=== PATIENT | male | born 1950 | race Caucasian/White ===

== ENCOUNTER 2020-07-06 12:40 | Outpatient (REF) | payer MEDICARE, BC, SELFPAY ==
--- NOTE | 2020-07-06 12:51 | XR_ITS ---
EXAMINATION: XR ABDOMEN KUB CLINICAL INDICATION: Renal stone COMPARISON: Previous CT of the abdomen and pelvis September 2019 and renal ultrasound March 2020 TECHNIQUE: AP view of the abdomen. FINDINGS: No renal stone is seen. There are bilateral pelvic calcifications probably representing calcified phleboliths and calcification in the prostate gland. Bowel gas pattern is normal. There are degenerative changes of the spine and left hip joint. IMPRESSION: No renal stone seen. Bilateral pelvic calcifications probably representing calcified phleboliths and calcification in the prostate gland.
== END 2020-07-06 12:41 | disposition home or self-care (01) ==
LOC: HO.XRAY 12:40
PROVIDERS: PCP Internal Medicine; Visit Provider Urology
DX: N20.0 Calculus of kidney (principal)
CPT/HCPCS: 74018

== ENCOUNTER 2021-01-25 10:54 | Outpatient (REF) | payer MEDICARE, OTHER, BC, SELFPAY ==
[2021-01-25 12:01] LABS: Alanine Aminotransferase 25 U/L (0-40); Albumin Level 4.7 g/dL (3.5-5.0); Alkaline Phosphatase 57 U/L (39-117); Anion Gap 12 (12-20); Aspartate Amino Transferase 17 U/L (5-37); Bilirubin Total 1.3 mg/dL (0.0-1.0); Blood Urea Nitrogen 12 mg/dL (9-16); Carbon Dioxide 28 mmol/L (22-29); Chloride 106 mmol/L (96-108); Cholesterol 151 mg/dL; Estimated Glomerular Filt Rate > 60; Glucose Fasting 114 mg/dL (60-99); HDL Cholesterol 41 mg/dL; LDL Cholesterol Calculated 90 mg/dl; Potassium 4.5 mmol/L (3.3-5.1); Sodium 141 mmol/L (135-145); Total Protein 7.3 g/dL (6.5-8.0); Triglycerides 104 mg/dL
[2021-01-25 12:11] LABS: TSH reflex Free T4 4.25 uIU/mL (0.32-4.0)
[2021-01-25 12:45] LABS: Free T4 (Free Thyroxine) 1.03 ng/dL (0.71-1.85)
[2021-01-26 08:51] LABS: Thyroid Peroxidase Antibodies 3 IU/mL (<9)
[2021-01-29 16:01] LABS: Thyroid Stimulating Immunoglob <89 % baseline (<140)
== END 2021-01-25 10:55 | disposition home or self-care (01) ==
LOC: HO.LAB 10:54
PROVIDERS: PCP Internal Medicine; Visit Provider Internal Medicine
DX: E78.00 Pure hypercholesterolemia, unspecified (principal); E03.9 Hypothyroidism, unspecified
CPT/HCPCS: 36415; 80053; 80061; 84439; 84443; 84445; 86376

== ENCOUNTER 2021-04-12 08:23 | Outpatient (REF) | payer MEDICARE, OTHER, BC, SELFPAY ==
[2021-04-12 09:37] LABS: Alanine Aminotransferase 29 U/L (0-40); Albumin Level 4.6 g/dL (3.5-5.0); Alkaline Phosphatase 54 U/L (39-117); Anion Gap 11 (12-20); Aspartate Amino Transferase 22 U/L (5-37); Bilirubin Total 1.1 mg/dL (0.0-1.0); Blood Urea Nitrogen 13 mg/dL (9-16); Calcium 9.9 mg/dL (8.4-10.2); Carbon Dioxide 28 mmol/L (22-29); Chloride 107 mmol/L (96-108); Estimated Glomerular Filt Rate > 60; Glucose Fasting 126 mg/dL (60-99); Potassium 4.7 mmol/L (3.3-5.1); Sodium 141 mmol/L (135-145); Total Protein 7.2 g/dL (6.5-8.0)
[2021-04-12 09:48] LABS: Thyroid Stimulating Hormone 4.85 uIU/mL (0.32-4.0)
== END 2021-04-12 08:24 | disposition home or self-care (01) ==
LOC: HO.LAB 08:23
PROVIDERS: PCP Internal Medicine; Visit Provider Internal Medicine
DX: E03.9 Hypothyroidism, unspecified (principal); R73.02 Impaired glucose tolerance (oral)
CPT/HCPCS: 36415; 80053; 84443

== ENCOUNTER 2021-06-16 08:06 | Outpatient (REF) | payer MEDICARE, OTHER, BC, SELFPAY ==
[2021-06-16 09:14] LABS: Alanine Aminotransferase 30 U/L (0-40); Albumin Level 4.6 g/dL (3.5-5.0); Alkaline Phosphatase 60 U/L (39-117); Anion Gap 11 (12-20); Aspartate Amino Transferase 22 U/L (5-37); Bilirubin Total 1.4 mg/dL (0.0-1.0); Blood Urea Nitrogen 11 mg/dL (9-16); Calcium 10.1 mg/dL (8.4-10.2); Carbon Dioxide 25 mmol/L (22-29); Chloride 108 mmol/L (96-108); Estimated Glomerular Filt Rate > 60; Glucose Fasting 124 mg/dL (60-99); Potassium 4.3 mmol/L (3.3-5.1); Sodium 140 mmol/L (135-145); Total Protein 7.3 g/dL (6.5-8.0)
[2021-06-16 09:37] LABS: Thyroid Stimulating Hormone 2.56 uIU/mL (0.32-4.0)
== END 2021-06-16 08:07 | disposition home or self-care (01) ==
LOC: HO.LAB 08:06
PROVIDERS: Visit Provider Internal Medicine
DX: R73.02 Impaired glucose tolerance (oral) (principal); E03.9 Hypothyroidism, unspecified
CPT/HCPCS: 36415; 80053; 84443

== ENCOUNTER 2021-12-25 07:57 | Outpatient (REF) | payer MEDICARE, BC, SELFPAY ==
[2021-12-25 10:00] LABS: Thyroid Stimulating Hormone 3.22 uIU/mL (0.32-4.0)
[2021-12-25 10:26] LABS: Alanine Aminotransferase 25 U/L (0-40); Albumin Level 4.6 g/dL (3.5-5.0); Alkaline Phosphatase 52 U/L (39-117); Anion Gap 14 (12-20); Aspartate Amino Transferase 20 U/L (5-37); Bilirubin Total 0.9 mg/dL (0.0-1.0); Blood Urea Nitrogen 17 mg/dL (9-16); Calcium 10.6 mg/dL (8.4-10.2); Carbon Dioxide 23 mmol/L (22-29); Chloride 107 mmol/L (96-108); Cholesterol 137 mg/dL; Estimated Glomerular Filt Rate > 60; Glucose Fasting 121 mg/dL (60-99); HDL Cholesterol 34 mg/dL; LDL Cholesterol Calculated 78 mg/dl; Potassium 4.4 mmol/L (3.3-5.1); Sodium 140 mmol/L (135-145); Total Protein 7.4 g/dL (6.5-8.0); Triglycerides 125 mg/dL
== END 2021-12-25 07:58 | disposition home or self-care (01) ==
LOC: HO.LAB 07:57
PROVIDERS: PCP Internal Medicine; Visit Provider Internal Medicine
DX: E03.9 Hypothyroidism, unspecified (principal); E78.5 Hyperlipidemia, unspecified; R73.02 Impaired glucose tolerance (oral)
CPT/HCPCS: 36415; 80053; 80061; 84443

== ENCOUNTER 2021-12-31 10:09 | Outpatient (REF) | payer MEDICARE, BC, SELFPAY ==
--- NOTE | ~2021-12-31 | US_ITS ---
EXAMINATION: US FOR PROSTATE VOLUME CLINICAL INFORMATION: BPH. COMPARISON: CT scan of September 2019. TECHNIQUE: Endorectal prostate ultrasound. FINDINGS: Prostate volume is approximately 46 cm. Prominent calcifications are noted within the prostate gland. There is a 1.2 x 0.8 x 1.2 cm cyst present within the mid gland. US/US prostate volume IMPRESSION: Prostate volume of 46 cm.
== END 2021-12-31 10:10 | disposition home or self-care (01) ==
LOC: HO.US 10:09
PROVIDERS: Visit Provider Internal Medicine
DX: N40.0 Benign prostatic hyperplasia without lower urinary tract symptoms (principal)
CPT/HCPCS: 76872

== ENCOUNTER 2022-01-01 07:13 | Outpatient (REF) | payer MEDICARE, BC, SELFPAY ==
[2022-01-01 08:14] LABS: Alanine Aminotransferase 25 U/L (0-40); Albumin Level 4.6 g/dL (3.5-5.0); Alkaline Phosphatase 52 U/L (39-117); Anion Gap 13 (12-20); Aspartate Amino Transferase 20 U/L (5-37); Blood Urea Nitrogen 15 mg/dL (9-16); Calcium 10.5 mg/dL (8.4-10.2); Carbon Dioxide 26 mmol/L (22-29); Chloride 107 mmol/L (96-108); Cholesterol 140 mg/dL; Estimated Glomerular Filt Rate > 60; Glucose Fasting 128 mg/dL (60-99); HDL Cholesterol 36 mg/dL; LDL Cholesterol Calculated 83 mg/dl; Potassium 4.5 mmol/L (3.3-5.1); Sodium 141 mmol/L (135-145); Total Protein 7.4 g/dL (6.5-8.0); Triglycerides 107 mg/dL
[2022-01-01 08:42] LABS: Thyroid Stimulating Hormone 2.78 uIU/mL (0.32-4.0)
[2022-01-01 08:43] LABS: Prostate Specific Antigen 0.72 ng/mL (<0.05-4.0)
[2022-01-01 10:13] LABS: Vitamin D 25-OH Total 37.6 ng/mL (>30)
[2022-01-03 13:56] LABS: Calcium (PTHI) 10.6 mg/dL (8.6-10.3); PTHI 55 pg/mL (16-77)
[2022-01-04 15:51] LABS: Calcium, Ionized 5.7 mg/dL (4.8-5.6)
[2022-01-04 22:17] LABS: Calcium, Random Urine 22.7 mg/dL
== END 2022-01-01 07:14 | disposition home or self-care (01) ==
LOC: HO.LAB 07:13
PROVIDERS: Absent Provider Internal Medicine; PCP Internal Medicine; Visit Provider Nurse Practitioner Family
DX: Z12.5 Encounter for screening for malignant neoplasm of prostate (principal); R73.02 Impaired glucose tolerance (oral); E03.9 Hypothyroidism, unspecified; E78.5 Hyperlipidemia, unspecified; E83.52 Hypercalcemia
CPT/HCPCS: 36415; 80053; 80061; 82306; 82310; 82330; 83970; 84153; 84443

== ENCOUNTER 2022-02-28 09:30 | Outpatient (REF) | payer MEDICARE, BC, SELFPAY ==
[2022-02-28 11:02] LABS: Alanine Aminotransferase 25 U/L (0-40); Albumin Level 4.5 g/dL (3.5-5.0); Alkaline Phosphatase 50 U/L (39-117); Anion Gap 10 (12-20); Aspartate Amino Transferase 19 U/L (5-37); Bilirubin Total 1.3 mg/dL (0.0-1.0); Blood Urea Nitrogen 11 mg/dL (9-16); Calcium 9.7 mg/dL (8.4-10.2); Carbon Dioxide 27 mmol/L (22-29); Chloride 106 mmol/L (96-108); Cholesterol 162 mg/dL; Estimated Glomerular Filt Rate > 60; Glucose Fasting 119 mg/dL (60-99); HDL Cholesterol 39 mg/dL; LDL Cholesterol Calculated 102 mg/dl; Potassium 4.6 mmol/L (3.3-5.1); Sodium 138 mmol/L (135-145); Total Protein 7.1 g/dL (6.5-8.0); Triglycerides 105 mg/dL
[2022-02-28 11:28] LABS: Thyroid Stimulating Hormone 3.08 uIU/mL (0.32-4.0)
== END 2022-02-28 09:31 | disposition home or self-care (01) ==
LOC: HO.LAB 09:30
PROVIDERS: PCP Internal Medicine; Visit Provider Internal Medicine
DX: E78.00 Pure hypercholesterolemia, unspecified (principal); E78.5 Hyperlipidemia, unspecified; E03.9 Hypothyroidism, unspecified
CPT/HCPCS: 36415; 80053; 80061; 84443

== ENCOUNTER → 2022-03-18 12:43 | Outpatient (BNVA) | payer MEDICARE, BC, SELFPAY | PROVIDERS: PCP Internal Medicine; Visit Provider Internal Medicine Endocrinology, Diabetes & Metabolism | DX: E83.52 Hypercalcemia (principal) | CPT/HCPCS: 99202 ==

== ENCOUNTER 2022-08-29 06:15 | Outpatient (REF) | payer MEDICARE, BC, SELFPAY ==
[2022-08-29 08:36] LABS: Alanine Aminotransferase 32 U/L (0-40); Albumin Level 4.5 g/dL (3.5-5.0); Alkaline Phosphatase 57 U/L (39-117); Anion Gap 13 (12-20); Aspartate Amino Transferase 19 U/L (5-37); Bilirubin Total 0.9 mg/dL (0.0-1.0); Blood Urea Nitrogen 16 mg/dL (9-16); Carbon Dioxide 25 mmol/L (22-29); Chloride 105 mmol/L (96-108); Cholesterol 150 mg/dL; Estimated Glomerular Filt Rate > 60; Glucose Fasting 138 mg/dL (60-99); HDL Cholesterol 34 mg/dL; LDL Cholesterol Calculated 94 mg/dl; Potassium 4.4 mmol/L (3.3-5.1); Sodium 139 mmol/L (135-145); Thyroid Stimulating Hormone 4.58 uIU/mL (0.32-4.0); Total Protein 7.1 g/dL (6.5-8.0); Triglycerides 111 mg/dL
[2022-08-30 15:13] LABS: Calcium (PTHI) 9.9 mg/dL (8.6-10.3); PTHI 54 pg/mL (16-77)
== END 2022-08-29 06:16 | disposition home or self-care (01) ==
LOC: HO.LAB 06:15
PROVIDERS: Internal Medicine Endocrinology, Diabetes & Metabolism; PCP Internal Medicine; Visit Provider Internal Medicine
DX: E78.5 Hyperlipidemia, unspecified (principal); E03.9 Hypothyroidism, unspecified; R73.02 Impaired glucose tolerance (oral); E83.52 Hypercalcemia
CPT/HCPCS: 36415; 80053; 80061; 83970; 84443

== ENCOUNTER 2022-12-19 10:09 | Outpatient (REF) | payer MEDICARE, BC, SELFPAY ==
[2022-12-19 11:52] LABS: Estimated Average Glucose 137 mg/dL; Hemoglobin A1c % 6.4 %
[2022-12-19 12:37] LABS: Alanine Aminotransferase 39 U/L (0-40); Albumin Level 4.4 g/dL (3.5-5.0); Alkaline Phosphatase 54 U/L (39-117); Anion Gap 11 (12-20); Aspartate Amino Transferase 27 U/L (5-37); Bilirubin Total 1.1 mg/dL (0.0-1.0); Blood Urea Nitrogen 19 mg/dL (9-16); Calcium 10.3 mg/dL (8.4-10.2); Carbon Dioxide 26 mmol/L (22-29); Chloride 105 mmol/L (96-108); Cholesterol 167 mg/dL; Estimated Glomerular Filt Rate > 60; Glucose Fasting 118 mg/dL (60-99); HDL Cholesterol 33 mg/dL; LDL Cholesterol Calculated 100 mg/dl; Potassium 4.4 mmol/L (3.3-5.1); Sodium 138 mmol/L (135-145); Thyroid Stimulating Hormone 2.04 uIU/mL (0.32-4.0); Triglycerides 170 mg/dL
== END 2022-12-19 10:10 | disposition home or self-care (01) ==
LOC: HO.LAB 10:09
PROVIDERS: Internal Medicine Endocrinology, Diabetes & Metabolism; PCP Internal Medicine; Visit Provider Internal Medicine
DX: E78.5 Hyperlipidemia, unspecified (principal); E11.40 Type 2 diabetes mellitus with diabetic neuropathy, unspecified; E03.9 Hypothyroidism, unspecified
CPT/HCPCS: 36415; 80053; 80061; 83036; 84443

== ENCOUNTER 2023-04-24 10:46 | Outpatient (REF) | payer MEDICARE, BC, SELFPAY ==
[2023-04-24 12:47] LABS: Alanine Aminotransferase 29 U/L (0-40); Albumin Level 4.8 g/dL (3.5-5.0); Alkaline Phosphatase 53 U/L (39-117); Anion Gap 15 (12-20); Aspartate Amino Transferase 22 U/L (5-37); Bilirubin Total 1.1 mg/dL (0.0-1.0); Blood Urea Nitrogen 15 mg/dL (9-16); Calcium 10.8 mg/dL (8.4-10.2); Carbon Dioxide 24 mmol/L (22-29); Chloride 106 mmol/L (96-108); Cholesterol 178 mg/dL; Estimated Glomerular Filt Rate > 60; Glucose Fasting 116 mg/dL (60-99); HDL Cholesterol 40 mg/dL; LDL Cholesterol Calculated 113 mg/dl; Potassium 4.4 mmol/L (3.3-5.1); Sodium 141 mmol/L (135-145); Thyroid Stimulating Hormone 2.61 uIU/mL (0.32-4.0); Triglycerides 126 mg/dL
== END 2023-04-24 10:47 | disposition home or self-care (01) ==
LOC: HO.LAB 10:46
PROVIDERS: PCP Internal Medicine; Visit Provider Internal Medicine
DX: E03.9 Hypothyroidism, unspecified (principal); I10 Essential (primary) hypertension; E78.5 Hyperlipidemia, unspecified
CPT/HCPCS: 36415; 80053; 80061; 84443

== ENCOUNTER 2023-05-04 07:46 | Outpatient (AMB) | payer MEDICARE, BC, SELFPAY ==
--- NOTE | 2023-05-04 07:53 | A.OFFPC_ITS ---
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 Accompanied by: Self / Same As Patient Allergies mollusks Adverse Reaction (Intermediate, Verified 05/04/23 08:12) vomitting Medication List - Last Reconciled 05/04/23 by Rebecca Deal MD albuterol sulfate 90 mcg/actuation inhalation cetirizine 5 mg PO BID PRN fluticasone propionate 50 mcg/actuation 1 spray intranasal DAILY 30 days ibuprofen 800 mg PO Q8H PRN 90 days ketotifen fumarate 0.025%(0.035%) 1 drp ophthalmic (eye) BID levothyroxine 88 mcg PO DAILY 90 days losartan 100 mg PO DAILY 90 days metronidazole 1% topical rosuvastatin 40 mg PO DAILY 90 days sildenafil 100 mg PO DAILY PRN 5 days tamsulosin 0.4 mg PO DAILY triamcinolone acetonide 0.1% 1 appl topical DAILY 30 days Tobacco use date assessed: 05/04/23 Fall risk assessment: No Falls in past year Last assessed Fall Risk: 05/04/23 Dental Screening Dental Screen Date: 05/04/23 Did you have a dental visit in the last 12 months?: Yes Did you have a dental problem in the last 6 months where you did not have access to dental care?: No Was dental information given to patient?: Patient has dentist HPI HPI Comments History of Present Illness Details This is a 73-year-old male with hypertension, pure hypercholesterolemia, hypothyroidism impaired glucose tolerance that comes today for follow-up on his conditions. Blood pressure stable. Cholesterol control with statins. TSH normal. Blood glucose has slightly improved and he denies any polyuria, polydipsia or unintentional weight loss. Compliant with medications. Denies any chest pain or shortness of breath. Calcium is elevated but when I corrected to albumin it keeps me 10.2 which is still within normal limits. [facility] Medical History BPH (benign prostatic hyperplasia) Erectile dysfunction Essential hypertension Hematospermia Hypercalcemia Hypothyroidism Impaired glucose tolerance Meniere disease Polyarthralgia Pure hypercholesterolemia Renal calculi Surgical History Amputation of left index finger History of blepharoplasty History of colonoscopy History of surgery Family History Father Prostate cancer Mother Stroke Social History Housing: House Alcohol intake: current Alcohol intake frequency: a few times a week Alcohol type: wine Patient Tobacco Use Status: Former Tobacco user Tobacco use type: Cigarette e-Cigarette/Vaping Use: Never Used Second Hand Smoke Exposure: No service: Yes Current occupational status: retired and disabled Cognitive needs: No Hearing needs: Yes Vision needs: Yes Questionnaire PHQ-9 Over the last 2 weeks, how often have you been bothered by any of the following problems? 1. Little interest or pleasure in doing things: not at all 2. Feeling down, depressed, or hopeless: not at all 3. Trouble falling or staying asleep, or sleeping too much: several days 4. Feeling tired or having little energy: not at all 5. Poor appetite or overeating: not at all 6. Feeling bad about yourself - or that you are a failure or have let yourself or your family down: not at all 7. Trouble concentrating on things, such as reading the newspaper or watching television: not at all 8. Moving or speaking so slowly that other people could have noticed. Or the opposite - being so fidgety or restless that you have been moving around a lot more than usual: not at all 9. Thoughts that you would be better off or of hurting yourself in some way: not at all Total score: 1 Depression Screening Interpretation: Negative 69035 - PHQ-9 Billing: Yes Source: Developed by Drs. Chris Us, Samantha Vaughan, Charanjit Garrido and colleagues, with an educational lili from [employer]. Thrive Questionnaire Date Thrive assessed: 12/30/22 AUDIT C Alcohol Use Questionnaire (AUDIT-C) 1. How often do you have a drink containing alcohol?: 4 or more times a week 2. How many drinks containing alcohol do you have on a typical day when you are drinking?: 1 or 2 3. How often do you have six or more drinks on one occasion?: Never Total Score: 4 Score Reviewed/Action Taken: Yes ANNA-7 AMB Questionnaire ANNA-7 Date ANNA - 7 assessed: 12/30/22 Source: Developed by Drs. hCris Us, Samantha Vaughan, Charanjit Garrido and colleagues, with an educational lili from [employer]. Review of Systems Const All systems reviewed & are unremarkable except as noted in HPI and below Eyes Reports no additional complaints, Denies change in vision and Denies other visual disturbances Card Denies chest pain at rest, Denies chest pain with activity, Denies edema, Denies irregular heart rhythm, Denies claudication, Denies dyspnea, Denies dyspnea on exertion, Denies orthopnea, Denies paroxysmal nocturnal dyspnea and Denies slow heart rate Resp Denies cough, Denies dyspnea and Denies dyspnea on exertion GI Denies abdominal pain, Denies change in bowel habits, Denies excessive flatus, Denies nausea and Denies vomiting Denies urinary hesitancy, Denies urinary incontinence and Denies urinary urgency Musc Denies abnormal gait, Denies atrophy, Denies deformity and Denies limited range of motion Skin/Breast Denies bleeding lesions, Denies changing lesions and Denies rash Neuro Denies abnormal gait and Denies lack of coordination Endo Denies cold intolerance Physical exam (Primary Care) Vital Signs: Last Vital Signs Pulse 58 05/04/23 07:54 BP 130/70 05/04/23 07:54 Pulse Ox 100 05/04/23 07:54 Oxygen Delivery Method Room Air 05/04/23 07:54 BMI result Body Mass Index 28.0 Tobacco/Smoking Status: Tobacco use Status Tobacco use date assessed 05/04/23 05/04/23 07:55 Patient Tobacco Use Status Former Tobacco user 05/04/23 07:55 Tobacco use type Cigarette 05/04/23 07:55 e-Cigarette/Vaping Use Never Used 05/04/23 07:55 PHQ-9: PHQ-9 Score PHQ-9: Total score 1 05/04/23 08:14 Depression Screening Interpretation: Negative Thrive Assessment: Date of Thrive Assessment Date Thrive assessed 12/30/22 05/04/23 07:55 Eyes General: appearance normal, both eyes and all related structures Eyelids: Yes eyelids normal Conjunctivae: conjunctivae normal Neck Neck: Yes normal visual inspection and Yes supple Resp Effort & Inspection: normal respiratory effort Auscultation: clear to auscultation bilaterally Cardio Jugular venous distension: no JVD Rate: regular rate Rhythm: regular rhythm Heart sounds: S1 normal heart sound present and S2 normal heart sound present Extrem General: Yes full ROM Assessment and Plan Assessment & Plan (1) Essential hypertension: Code(s): I10 - Essential (primary) hypertension Plan: Continue losartan. Blood pressure goal is equal or less than 130/80. (2) Pure hypercholesterolemia: Code(s): E78.00 - Pure hypercholesterolemia, unspecified Plan: Continue statins. (3) Hypothyroidism: Code(s): E03.9 - Hypothyroidism, unspecified Qualifiers: Hypothyroidism type: acquired Qualified Code(s): E03.9 - Hypothyroidism, unspecified Plan: Continue levothyroxine. (4) Impaired glucose tolerance: Code(s): R73.02 - Impaired glucose tolerance (oral) Plan: Continue low-carbohydrate diet. Orders: Orders Comprehensive [place]. Panel Fast 8 Months R73.02 - Impaired glucose tolerance (oral) Lipid Panel 8 Months E78.00 - Pure hypercholesterolemia, unspecified, E78.5 - Hyperlipidemia, unspecified Thyroid Stimulating Hormone 8 Months E03.9 - Hypothyroidism, unspecified Coding Level of Care Code Est Pt Level 4 (01474) Diagnoses Essential hypertension I10 Pure hypercholesterolemia E78.00 Hypothyroidism E03.9 Hypothyroidism type: acquired Impaired glucose tolerance R73.02 Time Spent (min) 23
[2023-05-04 07:54] VITALS: BP 130/70; PULSE 58; O2SAT 100; BMI 28.0
== END 2023-05-04 08:21 | disposition home or self-care (01) ==
PROVIDERS: Visit Provider Internal Medicine
DX: I10 Essential (primary) hypertension (principal); E78.00 Pure hypercholesterolemia, unspecified; E03.9 Hypothyroidism, unspecified; R73.02 Impaired glucose tolerance (oral)
CPT/HCPCS: 99214

== ENCOUNTER 2023-12-29 09:05 | Outpatient (REF) | payer MEDICARE, SELFPAY ==
[2023-12-29 11:52] LABS: Thyroid Stimulating Hormone 2.65 uIU/mL (0.32-4.0)
[2023-12-29 12:16] LABS: Anion Gap 11 (12-20)
[2023-12-29 12:21] LABS: Alanine Aminotransferase 33 U/L (0-40); Albumin Level 4.4 g/dL (3.5-5.0); Alkaline Phosphatase 44 U/L (39-117); Aspartate Amino Transferase 25 U/L (5-37); Bilirubin Total 0.7 mg/dL (0.0-1.0); Blood Urea Nitrogen 13 mg/dL (9-16); Calcium 10.1 mg/dL (8.4-10.2); Carbon Dioxide 27 mmol/L (22-29); Chloride 107 mmol/L (96-108); Cholesterol 160 mg/dL (<200); Estimated Glomerular Filt Rate > 60; Glucose Fasting 128 mg/dL (60-99); HDL Cholesterol 36 mg/dL (>40); LDL Cholesterol Calculated 95 mg/dL (<100); Potassium 4.2 mmol/L (3.3-5.1); Sodium 141 mmol/L (135-145); Total Protein 7.5 g/dL (6.5-8.0); Triglycerides 145 mg/dL (<150)
== END 2023-12-29 09:06 | disposition home or self-care (01) ==
LOC: HO.LAB 09:05
PROVIDERS: PCP Internal Medicine; Visit Provider Internal Medicine
DX: R73.02 Impaired glucose tolerance (oral) (principal); E03.9 Hypothyroidism, unspecified; E78.5 Hyperlipidemia, unspecified; E78.00 Pure hypercholesterolemia, unspecified
CPT/HCPCS: 36415; 80053; 80061; 84443

== ENCOUNTER 2024-01-01 08:45 | Outpatient (REF) | payer MEDICARE, BC, SELFPAY ==
[2024-01-01 10:14] LABS: PSA,Total (Free>4and<10) 0.58 ng/mL (0.00-4.00)
== END 2024-01-01 08:46 | disposition home or self-care (01) ==
LOC: HO.LAB 08:45
PROVIDERS: PCP Internal Medicine; Visit Provider Internal Medicine
DX: Z12.5 Encounter for screening for malignant neoplasm of prostate (principal)
CPT/HCPCS: 36415; 84153

== ENCOUNTER 2024-01-08 12:21 | Outpatient (AMB) | payer MEDICARE, BC, SELFPAY ==
[2024-01-08 12:32] VITALS: BP 118/60; PULSE 68; O2SAT 98; BMI 29.0
--- NOTE | 2024-01-08 12:32 | AM.OFFVISMDC ---
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 Accompanied by: Self / Same As Patient Allergies mollusks Adverse Reaction (Intermediate, Verified 01/08/24 12:59) vomitting Medication List - Last Reconciled 01/08/24 by Rebecca Deal MD albuterol sulfate 90 mcg/actuation 2 inhalations inhalation Q4-6H PRN azelaic acid 15% 1 appl topical BID cetirizine 5 mg (1/2 x 10 mg) PO BID PRN fluticasone propionate 50 mcg/actuation 1 spray intranasal DAILY 30 days ibuprofen 800 mg PO Q8H PRN 90 days ketotifen fumarate 0.025%(0.035%) 1 drp ophthalmic (eye) BID levothyroxine 88 mcg PO DAILY 90 days losartan 100 mg PO DAILY 90 days metronidazole 1% 1 appl topical DAILY 2 weeks rosuvastatin 40 mg PO DAILY 90 days sildenafil 100 mg PO DAILY PRN 5 days tamsulosin 0.4 mg PO DAILY triamcinolone acetonide 0.1% 1 appl topical DAILY 30 days HPI HPI Comments History of Present Illness Details This is a 73-year-old male that comes for his Medicare annual wellness exam. Use hearing aids bilateral but whisper test was normal without a hearing aids. Last colonoscopy was 2019 and will have another colonoscopy this year with Dr. Aguila. Compliant with medications. Doing well. Labs were discussed. PPP and intubation. Has healthcare proxy but is not scan. [facility] Medical History Hypercalcemia Hematospermia Polyarthralgia Meniere disease Impaired glucose tolerance Erectile dysfunction Renal calculi Hypothyroidism BPH (benign prostatic hyperplasia) Pure hypercholesterolemia Essential hypertension Surgical History History of blepharoplasty History of colonoscopy History of surgery Amputation of left index finger Family History Father Prostate cancer Mother Stroke Social History Housing: House Alcohol intake: current Alcohol intake frequency: a few times a week Alcohol type: wine Patient Tobacco Use Status: Former Tobacco user Tobacco use type: Cigarette e-Cigarette/Vaping Use: Never Used Second Hand Smoke Exposure: No service: Yes Current occupational status: retired and disabled Cognitive needs: No Hearing needs: Yes Vision needs: Yes Questionnaire Medicare Wellness Checkup [age] What gender do you identify with?: male During the past 4 weeks, how much have you been bothered by emotional problems such as feeling anxious, depressed, irritable, sad or downhearted, and blue?: not at all During the past 4 weeks, has your physical & emotional health limited your social activities with family, friends, neighbors, or groups?: not at all During the past 4 weeks, how much bodily pain have you generally had?: moderate pain During the past 4 weeks, was someone available to help you if you needed & wanted help?: yes, as much as I wanted During the past 4 weeks, what was the hardest physical activity you could do for at least 2 minutes?: very heavy Can you get to places out of walking distance without help? (For eg., can you travel alone on buses, taxis or drive your car?): Yes Can you go shopping for groceries or clothes without someone's help?: Yes Can you prepare your own meals?: Yes Can you do your housework without help?: Yes Because of any health problems, do you need the help of another person with your personal care needs such as eating, bathing, dressing or getting around the house?: No Can you handle your own money without help?: Yes During the past 4 weeks, how would you rate your health in general?: very good During the past 4 weeks how have things been going for you?: very well; could hardly better Are you having difficulties driving your car?: no Do you always fasten your seat belt when you are in a car?: yes, usually During past 4 weeks, have you been bothered by the following: never: Trouble eating well?, Teeth or denture problems? and Problems using the telephone?, seldom: Sexual problems? and Tiredness or fatigue? and sometimes: Falling or dizzy when standing up Have you fallen 2 or more times in the past year?: No Are you afraid of falling?: No Are you a smoker?: no During the past 4 weeks, how many drinks of wine, beer, or other alcoholic beverages did you have?: 2-5 drinks per week Do you exercise for about 20 minutes 3 or more times a week?: yes, some of the time Have you been given information to help with the following?: yes: Hazards in your house that might hurt you? and yes: Keeping track of your medications? How often do you have trouble taking medicines the way you have been told to take them?: I always take medicine as prescribed How confident are you that you can control & manage most of your health problems?: very confident What is your race?: White Mini Mental State Exam (MMSE) Orientation What is the (year) (season) (date) (day) (month)?: year, season, date, day and month Where are we (state) (county) (town or city) (hospital) (floor)?: state, county, town or city, hospital/clinic and floor Registration Name of 3 unrelated objects clearly and slowly, then ask patient to repeat all 3 of them. (1st repeat determines score. Make sure they can repeat all three): object 1, object 2 and object 3 Attention & Calculation (CHOOSE ONE) Spell WORLD backwards (DLROW): 4 letters Recall Ask patient to repeat the 3 items from question #3.: object 1, object 2 and object 3 Language Show patient a wristwatch & ask what it is. Repeat for pencil.: watch and pencil Ask the patient to repeat the phrase 'No ifs, ands, or buts' after you.: correct Ask the patient to 'take a piece of paper with their right hand' 'fold paper in half' 'place paper on floor': take paper in right hand, fold paper in half and place paper on floor Print the sentence 'CLOSE YOUR EYES' on a piece. If patient actually closes eyes then score.: followed written direction Give patient a blank piece of paper & ask to write a sentence. Score if it contains a noun & verb.: sentence contains subject and verb Ask patient to copy figure of intersecting pentagons exactly. Score if all 10 angles & 2 intersects are included.: all 10 angles present & 2 are intersected Score Score: 29 Activity of Daily Living Bathing - sponge bath, tub bath or shower: receives no assistance (gets in/out by self, if usual bathing means Dressing - getting clothes from closets & drawers, including inner/outer garments & fasteners.: gets clothes & gets completely dressed without help Toileting - going to the 'toilet room' for urine/bowel elimination & cleaning self/arranging clothes: goes to toilet room, cleans self, arranges clothes without help Transfer: moves in & out of bed and chair without help (may use support object) Continence: controls urination/bowel movements completely by self Feeding: feeds self without help Total Score: 0 Information obtained from: patient Using telephone: independent Traveling: independent Shopping: independent Preparing meals: independent Housework: independent Taking medicine: independent Managing money: independent PHQ-9 Over the last 2 weeks, how often have you been bothered by any of the following problems? 1. Little interest or pleasure in doing things: not at all 2. Feeling down, depressed, or hopeless: not at all 3. Trouble falling or staying asleep, or sleeping too much: not at all 4. Feeling tired or having little energy: not at all 5. Poor appetite or overeating: not at all 6. Feeling bad about yourself - or that you are a failure or have let yourself or your family down: not at all 7. Trouble concentrating on things, such as reading the newspaper or watching television: not at all 8. Moving or speaking so slowly that other people could have noticed. Or the opposite - being so fidgety or restless that you have been moving around a lot more than usual: not at all 9. Thoughts that you would be better off or of hurting yourself in some way: not at all Total score: 0 Depression Screening Interpretation: Negative Depression Screening Done: Yes 59108 - PHQ-9 Billing: Yes Source: Developed by Drs. Chris Us, Samantha Vaughan, Charanjit Garrido and colleagues, with an educational lili from [employer]. Review of Systems Const All systems reviewed & are unremarkable except as noted in HPI and below ENT Reports Normal hearing present Card Denies chest pain at rest, Denies chest pain with activity, Denies edema, Denies irregular heart rhythm, Denies claudication, Denies dyspnea, Denies dyspnea on exertion, Denies orthopnea, Denies paroxysmal nocturnal dyspnea and Denies slow heart rate Resp Denies cough, Denies dyspnea and Denies dyspnea on exertion GI Denies abdominal pain, Denies change in bowel habits, Denies excessive flatus, Denies nausea and Denies vomiting Denies urinary hesitancy, Denies urinary incontinence and Denies urinary urgency Neuro Reports Normal hearing present, Denies behavioral changes, Denies confusion and Denies lack of coordination Psych Denies behavioral changes and Denies confusion Physical Exam Vital Signs: Last Vital Signs Pulse 68 01/08/24 12:32 BP 118/60 01/08/24 12:32 Pulse Ox 98 01/08/24 12:32 Oxygen Delivery Method Room Air 01/08/24 12:32 BMI result Body Mass Index 29.0 Const General: No confusion Orientation/consciousness: patient oriented x3 and No confusion Neck Neck: Yes normal visual inspection and Yes supple Carotids: bruit bilateral Resp Effort & Inspection: normal respiratory effort Auscultation: clear to auscultation bilaterally Cardio Jugular venous distension: no JVD Rate: regular rate Rhythm: regular rhythm Heart sounds: S1 normal heart sound present and S2 normal heart sound present Neuro General: patient oriented x3, Normal light touch and pain sensation, no focal motor deficits and No confusion Cranial nerves: Yes Normal hearing present Gait exam (Neuro): Normal gait present Romberg Test: Negative Extrem General: Yes full ROM Psych Appearance: grossly normal Assessment & Plan Assessment & Plan (1) Encounter for Medicare annual wellness exam: Code(s): Z00.00 - Encounter for general adult medical examination without abnormal findings Plan: Repeat in a year. Orders: Orders US carotid duplex BI Today R09.89 - Other specified symptoms and signs involving the circulatory and respiratory systems Thyroid Stimulating Hormone 4 Months E03.9 - Hypothyroidism, unspecified ECG 12 lead EKG Today E78.00 - Pure hypercholesterolemia, unspecified, I10 - Essential (primary) hypertension Comprehensive [place]. Panel Fast 4 Months R73.02 - Impaired glucose tolerance (oral) Quality Reporting (2019) Depression/Bipolar (159/160/161/177) PHQ-9: Total score: 0 Coding Level of Care Code Medicare Subsequent (G0439) Diagnoses Encounter for Medicare annual wellness exam Z00.00 Time Spent (min) 38 Advance Care Planning Advance Care Planning discussion: Exists, not on file Forms completed: Health Care Proxy
== END 2024-01-08 13:22 | disposition home or self-care (01) ==
LOC: HO.HMGH 12:22
PROVIDERS: PCP Internal Medicine; Visit Provider Internal Medicine
DX: Z00.00 Encounter for general adult medical examination without abnormal findings (principal)
CPT/HCPCS: G0439

== ENCOUNTER → 2024-01-08 13:27 | Outpatient (REF) | payer MEDICARE, BC, SELFPAY ==
--- NOTE | 2024-01-08 13:31 | ECG_ITS ---
Test Reason : htn Blood Pressure : / mmHG Vent. Rate : 054 BPM Atrial Rate : 054 BPM P-R Int : 172 ms QRS Dur : 152 ms QT Int : 390 ms P-R-T Axes : 063 -18 -04 degrees QTc Int : 369 ms Sinus bradycardia with sinus arrhythmia Right bundle branch block Abnormal ECG No previous ECGs available Referred By: Rebecca Deal Electronically Signed By:LAZARA GREGORY MD
== END ==
LOC: HO.CARD 13:27
PROVIDERS: PCP Internal Medicine; Visit Provider Internal Medicine
DX: I10 Essential (primary) hypertension (principal); E78.00 Pure hypercholesterolemia, unspecified
CPT/HCPCS: 93005

== ENCOUNTER → 2024-01-08 13:31 | Outpatient (BNV) | payer MEDICARE, BC, SELFPAY | PROVIDERS: PCP Internal Medicine; Visit Provider Internal Medicine Cardiovascular Disease | DX: R00.1 Bradycardia, unspecified (principal); I10 Essential (primary) hypertension; E78.00 Pure hypercholesterolemia, unspecified | CPT/HCPCS: 93010 ==

== ENCOUNTER 2024-01-18 10:15 | Outpatient (REF) | payer MEDICARE, BC, SELFPAY ==
--- NOTE | ~2024-01-18 | US_ITS ---
EXAMINATION: US EXTRACRANIAL CAROTID DUPLEX, BILATERAL CLINICAL INFORMATION: Carotid bruit. COMPARISON: None available. TECHNIQUE: Real-time ultrasound and Doppler techniques (integrating B-mode 2-D vascular images, Doppler spectral analysis and color-flow Doppler imaging) were utilized to interrogate the extracranial carotid arteries, the vertebral arteries and proximal subclavian arteries bilaterally. The degree of stenosis is determined by criteria similar to NASCET. FINDINGS: Right Side: 1. There is mild atherosclerotic plaque seen in the bifurcation/proximal ICA region. 2. The common carotid artery PSV proximally is 88 cm/s and distally 86 cm/s. 3. The proximal internal carotid artery velocities are 48 cm/s systolic and 15 cm/s diastolic. 4. The proximal external carotid artery PSV is 124 cm/s. 5. The vertebral artery shows antegrade flow. 6. The subclavian artery waveforms are normal. Left Side: 1. There is mild atherosclerotic plaque seen in the bifurcation/proximal ICA region. 2. The common carotid artery PSV proximally is 104 cm/s and distally 93 cm/s. 3. The proximal internal carotid artery velocities are 70 cm/s systolic and 22 cm/s diastolic. 4. The proximal external carotid artery PSV is 97 cm/s. 5. The vertebral artery shows antegrade flow. 6. The subclavian artery waveforms are normal. US/US carotid duplex BI IMPRESSION: 1. RIGHT: Minimal, non-hemodynamically significant stenosis of the proximal right internal carotid artery corresponding to a 0-49% stenosis by velocity criteria. 2. LEFT: Minimal, non-hemodynamically significant stenosis of the proximal left internal carotid artery corresponding to a 0-49% stenosis by velocity criteria.
== END 2024-01-18 10:16 | disposition home or self-care (01) ==
LOC: HO.US 10:15
PROVIDERS: PCP Internal Medicine; Visit Provider Internal Medicine
DX: R09.89 Other specified symptoms and signs involving the circulatory and respiratory systems (principal)
CPT/HCPCS: 93880

== ENCOUNTER 2024-03-28 12:36 | Outpatient (AMB) | payer MEDICARE, BC, SELFPAY ==
[2024-03-28 12:40] VITALS: BP 120/68; PULSE 73; BMI 28.9
--- NOTE | 2024-03-28 12:40 | MHC.OFFVIS ---
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 Allergies mollusks Adverse Reaction (Intermediate, Verified 01/08/24 12:59) vomitting Medication List - Last Reconciled 03/28/24 by Andrew Quiñones MD albuterol sulfate 90 mcg/actuation 2 inhalations inhalation Q4-6H PRN azelaic acid 15% 1 appl topical BID cetirizine 5 mg (1/2 x 10 mg) PO BID PRN fluticasone propionate 50 mcg/actuation 1 spray intranasal DAILY 30 days ibuprofen 800 mg PO Q8H PRN 90 days ketotifen fumarate 0.025%(0.035%) 1 drp ophthalmic (eye) BID levothyroxine 88 mcg PO DAILY 90 days losartan 100 mg PO DAILY 90 days metronidazole 1% 1 appl topical DAILY 2 weeks rosuvastatin 40 mg PO DAILY 90 days sildenafil 100 mg PO DAILY PRN 5 days tamsulosin 0.4 mg PO DAILY triamcinolone acetonide 0.1% 1 appl topical DAILY 30 days HPI Comments Details: Thank you for referring Chris in cardiology consultation today for normal EKG, noted right bundle-branch block on a routine physical exam. He has longstanding history of hypertension hyperlipidemia and has been on therapy for a long time with last LDL of 93 mg/dL. Blood pressures been well controlled on losartan therapy. He remains fairly active in his day-to-day life and continues to play [employer] golf although he does use a cart. However he says he can walk without any limitations. However says since COVID he has had some shortness of breath related to activity but does not feel himself restricted in his day-to-day functioning. He had notice recent carotid bruit and underwent a carotid duplex which showed mild bilateral carotid atherosclerosis. He has never had any prior cardiovascular events. Denies any prior myocardial infarction or coronary artery disease. No significant family history of premature atherosclerosis. He denies any exertional chest tightness/pain. Also denies any clear significant exertional shortness of breath although he does say that he feels restricted since his COVID. Denies any orthopnea, PND, leg edema. No lightheadedness, syncope, prolonged palpitation irregular heartbeat. Takes all his medications regularly. [facility] Medical History Hypercalcemia Hematospermia Polyarthralgia Meniere disease Impaired glucose tolerance Erectile dysfunction Renal calculi Hypothyroidism BPH (benign prostatic hyperplasia) Pure hypercholesterolemia Essential hypertension Surgical History History of blepharoplasty History of colonoscopy History of surgery Amputation of left index finger Family History Father Prostate cancer Mother Stroke Social History Housing: House Alcohol intake: current Alcohol intake frequency: a few times a week Alcohol type: wine Patient Tobacco Use Status: Former Tobacco user Tobacco use type: Cigarette e-Cigarette/Vaping Use: Never Used Second Hand Smoke Exposure: No service: Yes Current occupational status: retired and disabled Cognitive needs: No Hearing needs: Yes Vision needs: Yes Review of Systems Const Denies chills, Denies daytime sleepiness, Denies fatigue, Denies fever(s), Denies frequent falls, Denies poor appetite, Denies snoring, Denies stops breathing during sleep, Denies weakness, Denies weight gain and Denies weight loss Eyes Denies loss of vision ENT Denies dizziness and Denies hearing loss Card Denies chest pain, Denies claudication, Denies leg edema, Denies lightheadedness, Denies palpitations, Denies dyspnea, Reports dyspnea on exertion and Denies orthopnea Resp Denies cough, Denies excessive phlegm production, Denies dyspnea, Reports dyspnea on exertion, Denies snoring and Denies wheezing GI Denies abdominal pain, Denies hematochezia, Denies change in bowel habits, Denies nausea and Denies vomiting Denies dysuria and Denies urinary frequency Musc Denies arthralgias, Denies muscle weakness, Denies numbness and Denies other (frequent falls) Skin/Breast Denies nail changes and Denies rash Neuro Denies Abnormal speech present, Denies dizziness, Denies frequent falls, Denies loss of vision, Denies memory loss, Denies numbness and Denies weakness Psych Denies depression and Denies memory loss Endo Denies fatigue and Denies palpitations Antonio/Lymph Reports easy bruising and Reports other (anemia) Aller/Immun Denies wheezing Physical Exam Vital Signs: Last Vital Signs Pulse 73 03/28/24 12:40 BP 120/68 03/28/24 12:40 BMI result Body Mass Index 28.9 Const General: cooperative, comfortable, no acute distress, well developed, alert, awake, Physically active and well groomed Nutritional Appearance: average body habitus and well nourished Orientation/consciousness: patient oriented x3 Limitations: no limitations HEENT Head: Yes normocephalic and Yes atraumatic Neck Neck: Yes trachea midline, Yes supple and Yes no JVD Resp Effort & Inspection: normal respiratory effort Auscultation: clear to auscultation bilaterally Cardio Jugular venous distension: no JVD Palpation: normal PMI Rate: regular rate Rhythm: regular rhythm Heart sounds: S1 normal heart sound present, S2 normal heart sound present, no click, no gallops, no murmurs and no rubs Bruits: no carotid bruits GI Auscultation: normal bowel sounds Skin General skin exam: no rashes or lesions noted Neuro General: patient oriented x3 and no focal motor deficits Speech: No Abnormal speech present Extrem General: Yes no clubbing, cyanosis or edema Psych Appearance: grossly normal Office Procedures EKG Details: EKG shows normal sinus rhythm with right bundle-branch block and left anterior fascicular block with septal QS pattern. The septal QS pattern and left anterior fascicular block are new compared to EKG from December this year [id number], Complete Assessment & Plan Assessment & Plan (1) Abnormal EKG: Code(s): R94.31 - Abnormal electrocardiogram [ECG] [EKG] Category: Medical Plan: Abnormal EKG this elderly gentleman with some reduction exercise capacity with exertional shortness of breath since COVID with EKG showing bifascicular block today with septal QS pattern. He is multiple risk factors for obstructive CAD including age, hypertension, hyperlipidemia as well as mild carotid disease. Would suggest him to undergo exercise myocardial perfusion imaging to evaluate for myocardial ischemia. Also suggest an echocardiogram to evaluate for cardiac structure and function in the near future. Meanwhile continue aggressive risk factor modification. Blood pressure is currently well optimized on current losartan therapy. Can consider further uptitration of his lipid modification to target goal LDL less than 70 mg/dL. Consider low-dose aspirin therapy given his carotid disease. Full require annual EKG if his initial cardiac evaluation is within normal limits. Low risk for progressive conduction system dysfunction was discussed and requirement for pacemaker was discussed. Will follow up in the clinic in 4 weeks time, sooner p.r.n.. Thank you for allowing me to partake in his care Orders: Orders CA stress test Today R94.31 - Abnormal electrocardiogram [ECG] [EKG] NM cardiolite stress test 2 Weeks R94.31 - Abnormal electrocardiogram [ECG] [EKG] CA echo transthoracic complete Today I45.10 - Unspecified right bundle-branch block Coding Level of Care Code New Pt Level 4 (69368) Diagnoses Abnormal EKG R94.31 CPT Codes EKG - CPT: 69436-[id number], Complete ([id number])
== END 2024-03-28 13:11 | disposition home or self-care (01) ==
PROVIDERS: PCP Internal Medicine; Visit Provider Internal Medicine Cardiovascular Disease
DX: R94.31 Abnormal electrocardiogram [ECG] [EKG] (principal)
CPT/HCPCS: 93010; 99214

== ENCOUNTER → 2024-03-28 12:36 | Outpatient (BNVA) | payer MEDICARE, BC, SELFPAY | PROVIDERS: PCP Internal Medicine; Visit Provider Internal Medicine Cardiovascular Disease | DX: R94.31 Abnormal electrocardiogram [ECG] [EKG] (principal); I45.10 Unspecified right bundle-branch block; I44.4 Left anterior fascicular block | CPT/HCPCS: 93005; 99212 ==

== ENCOUNTER → 2024-05-03 07:41 | Outpatient (REF) | payer MEDICARE, BC, SELFPAY ==
--- NOTE | ~2024-05-03 | NM_ITS ---
Exercise Myocardial perfusion study Indication: Abnormal EKG to evaluate for myocardial ischemia Technique: The patient was brought in for an exercise perfusion study on 05/03/2024. Patient performed exercise as per Matheus protocol and was injected 30 mCi of sestamibi was given intravenously one target HR was achieved. Images were obtained using the SPECT gamma camera interlaced with the gating device. Images were obtained in supine position. Resting perfusion study was performed on 05/06/2024. Patient was administered 30 mCi of sestamibi intravenously at rest. Images were then obtained in supine position. Images obtained with and without CT attenuation. Total DLP 85 mGy-cm. Images were processed with the software and compared side to side in short axis, horizontal long axis and vertical long axis views. Findings: The stress perfusion study showed non attenuated images show mildly reduced uptake in the inferior wall of the LV myocardium including mildly reduced uptake in the inferoseptal wall of the LV myocardium. Remainder of the LV myocardium is normally perfused. Attenuated corrected images show normalized uptake with mildly reduced uptake in the apical wall of the LV myocardium.. The gated study shows normal LV systolic function with calculated LVEF of 55%. LV cavity is normal in size. The gated study shows normal systolic wall thickening and contraction of all segments. There is no transient ischemic dilation. Resting study shows non attenuated images show improved uptake in the inferior wall of the LV myocardium. Attenuation corrected images show no changes compared to stress perfusion study. Gating at rest reveals normal systolic wall motion with ejection fraction at 59%. The findings are consistent with reversible defect seen on non attenuated images, equivocal for inferior and inferoseptal ischemia. NM/NM cardiolite stress test Impression: 1. Equivocal for inferior and inferoseptal ischemia in RCA territory 2. Gated LVEF is 55% 3. Transient ischemic dilatation not present Stress EKG is negative for ischemia
--- NOTE | 2024-05-03 07:44 | CA_ITS ---
Acquisition Time: 2024-05-03 08:50:06 Total Exercise Time: 00:07:30 Test Indications: Abnormal ECG Medications: SEE H Protocol: BOBBY Max HR: 131 BPM 90% of Pred: 145 BPM Max BP: 152/068 mmHG Max Work Load: 9.3 METS Exercise stress test exercise 7 min 30 sec of Bobby protocol achieving 89% MPHR, without chest discomfort, with mild SOB, without arrhythmias, with normotensive response to exercise, without EKG changes, Nuclear images pending. Test reviewed with Dr. Orantes, Referred By: Andrew Quiñones Overread By: Rosa Isela Pearce
--- NOTE | 2024-05-03 07:44 | CA_ITS ---
Transthoracic Echocardiogram Patient (Last, First, Middle): Chris Lynch E Gender: Male Date of : 1950 Age: 74 Procedure Date: 05/03/2024 Procedure Type: Transthoracic Echocardiogram Location: OP Height: 180.34 cm Weight: 93.9 kg BSA: 2.14 m2 Heart Rate: 50 bpm BP: 122 / 70 mmHg Spiritual Minister: ROBE Referring MD: Andrew Quiñones MD Symptoms: I45.10 - Unspecified right bundle-branch block Study Quality: Adequate ECG Rhythm: Bradycardia Conclusions: - The left ventricular systolic function is normal. The visually estimated ejection fraction is between 55-60%. - No obvious valvular pathology seen on this study. Findings Procedure Information Contrast agent, definity, is being given per protocol without apparent complications. Left Ventricle Normal left ventricular cavity size. There is normal left ventricular wall thickness. The left ventricular systolic function is normal. The visually estimated ejection fraction is between 55-60%. There is no evidence of regional wall motion abnormalities. Diastolic function is normal for age. Right Ventricle Normal right ventricular cavity size. There is moderately decreased right ventricular systolic function. Atria Both atria are normal in size. Aortic Valve There is a normal trileaflet aortic valve. There is no aortic valve stenosis. There is no aortic valve regurgitation. Mitral Valve There is mild mitral annular calcification. There is trace mitral valve regurgitation. There is no mitral valve stenosis. Pulmonic Valve The pulmonic valve is likely normal. Tricuspid Valve There is no tricuspid valve regurgitation. Tricuspid regurgitation envelope is inadequate for calculation of right ventricular systolic pressure. Great Vessels The asc aorta is normal in size. Venous The inferior vena cava is mildly dilated and collapses greater than 50% with inspiration. Pericardium/Pleural There is no evidence of pericardial effusion. Prior Study Comparison No prior study available for comparison. Recommendations, Care & Conclusions No obvious valvular pathology seen on this study. Measurements 2D Linear Measurements IVSd: 0.61 0.6-0.9/0.6-1.0 cm LVIDd: 4.87 3.9-5.3/4.2-5.9 cm LVIDd Index: 2.28 2.4-3.2/2.2-3.1 cm/m2 LVIDs: 3.87 2.0-3.6 cm LVPWd: 0.63 0.7-1.1 cm LA Diam: 4.20 2.7-3.8/3.0-4.0 cm LAIDs Index: 1.96 1.5-2.3 cm/m2 LV Mass: 116.87 67-162/88-224 g LV Mass Index: 54.61 43-95/49-115 g/m2 LVOT Diam: 2.50 3.0+(-)1.3 cm 2D Systolic Function EF 4C: 58.10 >55% EF 2C: 55.40 >55% EF BiP: 59.40 >55% Mitral Valve MV Pk E: 0.74 MV PK A: 0.61 MV Decel Time: 179.00 E/A: 1.20 E'Lateral: 5.87 E'Medial: 6.42 E/E' Med: 11.50 E/E' Lat: 12.60 PHT: 52.00 MVA PHT: 4.23 Decel [place]: 4.14 Aortic Valve AoV Pk Misael: 0.91 AoV Pk Grad: 3.00 CARMENZA: 4.70 LVOT LVOT Pk Misael: 0.95 LVOT Mn Misael: 0.67 LVOT VTI: 0.20 LVOT Pk Grad: 4.00 LVOT Mn Grad: 2.00 LVOT Diam: 2.50 LVOT Area: 4.91 Diastolic Function MV Pk E: 0.74 MV Pk A: 0.61 E/A: 1.20 E'Medial: 6.42 E/E' Med: 11.50 E' Laterial: 5.87 E/E' Lat: 12.60 Right Ventricle TAPSE (mm): 10.70 TVS' Misael: 8.59 Tricuspid Valve RA Press: 3.00 Great Vessels Aorta Sinus of Valsalva: 4.20 2.0-3.5 cm Ao Asc: 3.70 2.1-3.4 cm Pulmonary Valve PV Pk Misael: 0.63 Peak PV Grad: 2.00 Updated in Other Vendor System with Status of Final Bahman Orantes MD electronically signed on 05/05/2024 11:19:27 AM with status of Final
== END ==
LOC: HO.CARD 07:41
PROVIDERS: PCP Internal Medicine; Visit Provider Internal Medicine Cardiovascular Disease
DX: I45.10 Unspecified right bundle-branch block (principal); R94.31 Abnormal electrocardiogram [ECG] [EKG]
CPT/HCPCS: 78452; 93017; 93306; A9500; Q9957

== ENCOUNTER → 2024-05-03 07:44 | Outpatient (BNV) | payer MEDICARE, BC, SELFPAY | PROVIDERS: PCP Internal Medicine; Visit Provider Nurse Practitioner | DX: I34.81 Nonrheumatic mitral (valve) annulus calcification (principal) | CPT/HCPCS: 78452; 93016; 93018; 93320; 93350; 93352 ==

== ENCOUNTER 2024-05-06 08:18 | Outpatient (AMB) | payer MEDICARE, BC, SELFPAY ==
[2024-05-06 08:34] VITALS: BP 110/64; PULSE 65; BMI 29.0
--- NOTE | 2024-05-06 08:34 | A.OFFVIS_ITS ---
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 Accompanied by: Self / Same As Patient Allergies mollusks Adverse Reaction (Intermediate, Verified 01/08/24 12:59) vomitting Medication List - Last Reconciled 05/06/24 by Andrew Quiñones MD albuterol sulfate 90 mcg/actuation 2 inhalations inhalation Q4-6H PRN azelaic acid 15% 1 appl topical BID cetirizine 5 mg (1/2 x 10 mg) PO BID PRN fluticasone propionate 50 mcg/actuation 1 spray intranasal DAILY 30 days ibuprofen 800 mg PO Q8H PRN 90 days ketotifen fumarate 0.025%(0.035%) 1 drp ophthalmic (eye) BID levothyroxine 88 mcg PO DAILY 90 days losartan 100 mg PO DAILY 90 days metronidazole 1% 1 appl topical DAILY 2 weeks rosuvastatin 40 mg PO DAILY 90 days sildenafil 100 mg PO DAILY PRN 5 days tamsulosin 0.4 mg PO DAILY triamcinolone acetonide 0.1% 1 appl topical DAILY 30 days HPI Comments Details: Chris comes for follow-up. Recent echocardiogram shows overall normal structure of the heart. ETT shows good exercise capacity with no ischemic changes although nuclear images are still pending. Resting to be done today. Do not have a copy of the results. Taking all his medications. Denies any exertional chest pain. [facility] Medical History (Updated 05/06/24 @ 08:45 by Andrew Quiñones MD) Right bundle branch block Hypercalcemia Hematospermia Polyarthralgia Meniere disease Impaired glucose tolerance Erectile dysfunction Renal calculi Hypothyroidism BPH (benign prostatic hyperplasia) Pure hypercholesterolemia Essential hypertension Surgical History History of blepharoplasty History of colonoscopy History of surgery Amputation of left index finger Family History Father Prostate cancer Mother Stroke Social History Housing: House Alcohol intake: current Alcohol intake frequency: a few times a week Alcohol type: wine Patient Tobacco Use Status: Former Tobacco user Tobacco use type: Cigarette e-Cigarette/Vaping Use: Never Used Second Hand Smoke Exposure: No service: Yes Current occupational status: retired and disabled Cognitive needs: No Hearing needs: Yes Vision needs: Yes Review of Systems Const Denies chills, Denies fatigue, Denies fever(s), Denies frequent falls, Denies weakness, Denies weight gain and Denies weight loss ENT Denies dizziness Card Denies chest pain, Denies leg edema, Denies lightheadedness, Denies palpitations, Denies dyspnea and Denies dyspnea on exertion Resp Denies cough, Denies dyspnea and Denies dyspnea on exertion GI Denies hematochezia Musc Denies abnormal gait, Denies muscle weakness, Denies numbness, Denies radiating pain into limb and Denies tingling Neuro Denies Abnormal speech present, Denies abnormal gait, Denies dizziness, Denies frequent falls, Denies numbness, Denies tingling and Denies weakness Endo Denies fatigue and Denies palpitations Physical Exam Vital Signs: Last Vital Signs Pulse 65 05/06/24 08:34 BP 110/64 05/06/24 08:34 BMI result Body Mass Index 29.0 Const General: cooperative, comfortable, no acute distress, well developed, alert, awake, Physically active and well groomed Nutritional Appearance: average body habitus and well nourished Orientation/consciousness: patient oriented x3 Limitations: no limitations HEENT Head: Yes normocephalic and Yes atraumatic Neck Neck: Yes trachea midline, Yes supple and Yes no JVD Resp Effort & Inspection: normal respiratory effort Auscultation: clear to auscultation bilaterally Cardio Jugular venous distension: no JVD Palpation: normal PMI Rate: regular rate Rhythm: regular rhythm Heart sounds: S1 normal heart sound present, S2 normal heart sound present, no click, no gallops, no murmurs and no rubs Bruits: no carotid bruits GI Auscultation: normal bowel sounds Skin General skin exam: no rashes or lesions noted Neuro General: patient oriented x3 and no focal motor deficits Speech: No Abnormal speech present Extrem General: Yes no clubbing, cyanosis or edema Psych Appearance: grossly normal Assessment & Plan Assessment & Plan (1) Bifascicular block: Code(s): I45.2 - Bifascicular block Category: Medical Plan: Bifascicular block on EKG with no symptoms and normal exercise capacity with no ischemic EKG changes although nuclear imaging is pending. Echocardiogram shows overall normal structure of the heart. Continue aggressive medical therapy. Continue low-dose aspirin therapy for life. Continue high-intensity statin therapy with target goal LDL less than 70 mg/dL. Being pursue through office. Continue aggressive blood pressure control which is currently well optimized. Continue current therapy. Target goal blood pressure less than 130/84. Advised to monitor blood pressure intermittently at home. Advised to maintain activity level as tolerated. Advised to call if there any new symptoms or if he has syncopal episode of seek emergency care for possible progressive conduction system disease. Annual EKGs will be pursued. Will follow up in the clinic in 1 year's time, sooner p.r.n.. Thank you for allowing me to partake in his care Medications: New aspirin (Ecotrin Low Strength) 81 mg PO DAILY 30 tabs 5RF Coding Level of Care Code Est Pt Level 3 (76687) Diagnoses Bifascicular block I45.2
== END 2024-05-06 08:44 | disposition home or self-care (01) ==
PROVIDERS: PCP Internal Medicine; Visit Provider Internal Medicine Cardiovascular Disease
DX: I45.2 Bifascicular block (principal)
CPT/HCPCS: 99213

== ENCOUNTER → 2024-05-06 08:18 | Outpatient (BNVA) | payer MEDICARE, BC, SELFPAY | PROVIDERS: PCP Internal Medicine; Visit Provider Internal Medicine Cardiovascular Disease | DX: I45.2 Bifascicular block (principal) | CPT/HCPCS: 99212 ==

== ENCOUNTER 2024-05-09 10:33 | Outpatient (REF) | payer MEDICARE, BC, SELFPAY ==
[2024-05-09 12:49] LABS: Alanine Aminotransferase 28 U/L (0-40); Albumin Level 4.6 g/dL (3.5-5.0); Alkaline Phosphatase 52 U/L (39-117); Anion Gap 11 (12-20); Aspartate Amino Transferase 23 U/L (5-37); Bilirubin Total 0.8 mg/dL (0.0-1.0); Blood Urea Nitrogen 14 mg/dL (9-16); Calcium 10.8 mg/dL (8.4-10.2); Carbon Dioxide 28 mmol/L (22-29); Chloride 105 mmol/L (96-108); Cholesterol 172 mg/dL (<200); Estimated Glomerular Filt Rate > 60; Glucose Fasting 121 mg/dL (60-99); Glucose Random 120 mg/dL (60-115); HDL Cholesterol 40 mg/dL (>40); LDL Cholesterol Calculated 103 mg/dL (<100); Potassium 4.4 mmol/L (3.3-5.1); Sodium 140 mmol/L (135-145); Total Protein 7.6 g/dL (6.5-8.0); Triglycerides 148 mg/dL (<150)
[2024-05-09 12:57] LABS: PSA,Total (Free>4and<10) 0.69 ng/mL (0.00-4.00)
[2024-05-09 13:05] LABS: Thyroid Stimulating Hormone 2.35 uIU/mL (0.32-4.0)
== END 2024-05-09 10:34 | disposition home or self-care (01) ==
LOC: HO.LAB 10:33
PROVIDERS: PCP Internal Medicine; Visit Provider Internal Medicine
DX: I45.2 Bifascicular block (principal); E03.9 Hypothyroidism, unspecified; I10 Essential (primary) hypertension; E78.5 Hyperlipidemia, unspecified; Z12.5 Encounter for screening for malignant neoplasm of prostate
CPT/HCPCS: 36415; 80048; 80053; 80061; 84153; 84443

== ENCOUNTER 2024-05-13 14:00 | Outpatient (AMB) | payer MEDICARE, BC, SELFPAY ==
--- NOTE | 2024-05-13 14:03 | A.OFFPC_ITS ---
Vital Signs 05/13/24 14:04 Height 5 ft 11 in Weight 203 lb BMI 28.3 BP 110/62 Blood Pressure Location Lt brachial Position Sitting Intake Visit Reasons: 4mof\u Intake Note: Patient here for a 4 month follow up 911 Emergency Dispatcher Required: No Accompanied by: Self / Same As Patient Allergies mollusks Adverse Reaction (Intermediate, Verified 05/13/24 14:18) vomitting Medication List - Last Reconciled 05/13/24 by Rebecca Deal MD albuterol sulfate 90 mcg/actuation 2 inhalations inhalation Q4-6H PRN aspirin (Ecotrin Low Strength) 81 mg PO DAILY azelaic acid 15% 1 appl topical BID cetirizine 10 mg PO BID PRN fluticasone propionate 50 mcg/actuation 1 spray intranasal DAILY 30 days ibuprofen 800 mg PO Q8H PRN 90 days ketotifen fumarate 0.025%(0.035%) 1 drp ophthalmic (eye) BID levothyroxine 88 mcg PO DAILY 90 days losartan 100 mg PO DAILY 90 days rosuvastatin 40 mg PO DAILY 90 days sildenafil 100 mg PO DAILY PRN 5 days tamsulosin 0.4 mg PO DAILY triamcinolone acetonide 0.1% 1 appl topical DAILY 30 days Tobacco use date assessed: 05/13/24 Fall risk assessment: No Falls in past year Last assessed Fall Risk: 05/13/24 Dental Screening Dental Screen Date: 05/13/24 Did you have a dental visit in the last 12 months?: Yes Did you have a dental problem in the last 6 months where you did not have access to dental care?: No Was dental information given to patient?: Patient has dentist HPI HPI Comments History of Present Illness Details This is a 74-year-old male with essential hypertension, pure hype rcholesterolemia and hypothyroidism that complains of a lump of skin in right shoulder associated with keloid scar that he noticed few weeks ago. Labs were discussed. Blood pressure stable. Cholesterol well controlled. TSH normal. Has mild elevation of calcium corrected to 10.3 and this will be repeated. Stress test was equivocal and has a cardiac CT scan soon. Has bilateral inguinal hernias more prominent in the left and declines being evaluated by surgery at the moment. [facility] Medical History (Updated 05/13/24 @ 14:32 by Rebecca Deal MD) Abnormal stress test Right bundle branch block Hypercalcemia Hematospermia Polyarthralgia Meniere disease Impaired glucose tolerance Erectile dysfunction Renal calculi Hypothyroidism BPH (benign prostatic hyperplasia) Pure hypercholesterolemia Essential hypertension Surgical History History of blepharoplasty History of colonoscopy History of surgery Amputation of left index finger Family History Father Prostate cancer Mother Stroke Social History Housing: House Alcohol intake: current Alcohol intake frequency: a few times a week Alcohol ty pe: wine Patient Tobacco Use Status: Former Tobacco user Tobacco use type: Cigarette e-Cigarette/Vaping Use: Never Used Second Hand Smoke Exposure: No service: Yes Current occupational status: retired and disabled Cognitive needs: No Hearing needs: Yes Vision needs: Yes Questionnaire PHQ-9 Over the last 2 weeks, how often have you been bothered by any of the following problems? 1. Little interest or pleasure in doing things: not at all 2. Feeling down, depressed, or hopeless: not at all 3. Trouble falling or staying asleep, or sleeping too much: not at all 4. Feeling tired or having little energy: not at all 5. Poor appetite or overeating: not at all 6. Feeling bad about yourself - or that you are a failure or have let yourself or your family down: not at all 7. Trouble concentrating on things, such as reading the newspaper or watching television: not at all 8. Moving or speaking so slowly that other people could have noticed. Or the opposite - being so fidgety or restless that you have been moving around a lot more than usual: not at all 9. Thoughts that you would be better off or of hurting yourself in some way: not at all Total score: 0 Depression Screening Interpretation: Negative Depression Screening Done: Yes 70899 - PHQ-9 Billing: Yes Source: Developed by Drs. Chris Us, Samantha Vaughan, Charanjit Garrido and colleagues, with an educational lili from [employer]. Thrive Questionnaire Date Thrive assessed: 05/13/24 I am a: Patient What is your living situation today?: I have a steady place to live Within the past 12 months, did the food you bought not last and you didn't have the money to get more?: Never true Within the past 12 months, did you worry whether your food would run out before you got money to buy more?: Never true Do you have trouble paying for medicines?: No Do you have trouble getting transportation to medical appointments?: No Do you have trouble paying your heating and electricity bill?: No Do you have trouble taking care of your child, family member or friend?: No Do you have trouble with day-to-day activities such as bathing, preparing meals, shopping, managing finances, etc.?: No Are you currently unemployed and looking for a job?: No Are you interested in more education?: No Please select the resources that you would like help with: None Currently or been in a relationship where the following occur: No concerns reported THRIVE Score: 0 AUDIT C Alcohol Use Questionnaire (AUDIT-C) 1. How often do you have a drink containing alcohol?: 4 or more times a week 2. How many drinks containing alcohol do you have on a typical day when you are drinking?: 1 or 2 3. How often do you have six or more drinks on one occasion?: Never Total Score: 4 ANNA-7 AMB Questionnaire ANNA-7 Date ANNA - 7 assessed: 05/13/24 Feeling nervous, anxious, or on edge: 0 = Not at all Not being able to stop or control worryin = Not at all Worrying too much about different things: 0 = Not at all Trouble relaxin = Not at all Being so restless that it is hard to sit still: 0 = Not at all Becoming easily annoyed or irritable: 0 = Not at all Feeling afraid as if something awful might happen: 0 = Not at all Total ANNA-7 score (0-4 normal; 5-9 mild; 10-14 moderate; 15-21 severe): 0 Source: Developed by Drs. Chris Us, Samantha Vaughan, Charanjit Garrido and colleagues, with an educational lili from [employer]. ANNA-7 Assessment Billing ANNA-7 Assessment Tool: ANNA-7 Assessment 98779 Review of Systems Const All systems reviewed & are unremarkable except as noted in HPI and below Card Denies chest pain at rest, Denies chest pain with activity, Denies edema, Denies irregular heart rhythm, Denies claudication, Denies dyspnea, Denies dyspnea on exertion, Denies orthopnea, Denies paroxysmal nocturnal dyspnea and Denies slow heart rate Resp Denies cough, Denies dyspnea and Denies dyspnea on exertion GI Denies abdominal pain, Denies change in bowel habits, Denies excessive flatus, Denies nausea and Denies vomiting Denies urinary hesitancy, Denies urinary incontinence and Denies urinary urgency Musc Denies abnormal gait, Denies atrophy, Denies deformity and Denies limited range of motion Skin/Breast Denies bleeding lesions, Denies changing lesions, Reports lesions and Denies rash Neuro Denies abnormal gait, Denies behavioral changes and Denies lack of coordination Psych Denies behavioral changes Physical exam (Primary Care) Vital Signs: Last Vital Signs BP 110/62 05/13/24 14:04 BMI result Body Mass Index 28.3 Tobacco/Smoking Status: Tobacco use Status Tobacco use date assessed 05/13/24 05/13/24 14:10 Patient Tobacco Use Status Former Tobacco user 05/13/24 14:10 Tobacco use type Cigarette 05/13/24 14:10 e-Cigarette/Vaping Use Never Used 05/13/24 14:10 PHQ-9: PHQ-9 Score PHQ-9: Total score 0 05/13/24 15:17 Depression Screening Interpretation: Negative Thrive Assessment: Date of Thrive Assessment Date Thrive assessed 05/13/24 05/13/24 14:10 Currently or been in a relationship where the following occur: No concerns reported Resp Effort & Inspection: normal respiratory effort Auscultation: clear to auscultation bilaterally Cardio Jugular venous distension: no JVD Rate: regular rate Rhythm: regular rhythm Heart sounds: S1 normal heart sound present and S2 normal heart sound present Skin Other: keloid scar with skin lump in right shoulder Extrem General: Yes full ROM Assessment and Plan Assessment & Plan (1) Hypothyroidism: Code(s): E03.9 - Hypothyroidism, unspecified Qualifiers: Hypothyroidism type: acquired Qualified Code(s): E03.9 - Hypothyroidism, unspecified Plan: Continue levothyroxine. Monitor TSH. (2) Essential hypertension: Code(s): I10 - Essential (primary) hypertension Plan: Continue losartan. Blood pressure goal is equal or less than 130/80. (3) Pure hypercholesterolemia: Code(s): E78.00 - Pure hypercholesterolemia, unspecified Plan: Continue statins. Repeat lipid panel. (4) Lump of skin: Code(s): R22.9 - Localized swelling, mass and lump, unspecified Plan: Referred to dermatology. Orders: Orders Vitamin D 25-OH Total 8 Months E55.9 - Vitamin D deficiency, unspecified Comprehensive [place]. Panel Fast 8 Months R73.02 - Impaired glucose tolerance (oral) Parathyroid Hormone Intact 8 Months E83.52 - Hypercalcemia Lipid Panel 8 Months E78.5 - Hyperlipidemia, unspecified Calcium, Ionized 8 Months E83.52 - Hypercalcemia Phosphorus 8 Months E83.52 - Hypercalcemia Thyroid Stimulating Hormone 8 Months E03.9 - Hypothyroidism, unspecified Referrals Dermatology Referral L91.0 - Hypertrophic scar, R22.9 - Localized swelling, mass and lump, unspecified Medications: Changed From cetirizine 10 mg PO BID PRN allergy symptoms To cetirizine 5 mg (1/2 x 10 mg) PO BID PRN 180 tabs 2RF allergy symptoms 90 days Coding Level of Care Code Est Pt Level 4 (34933) Complex EM visit Add On G2211 Diagnoses Acquired hypothyroidism E03.9 Hypothyroidism type: acquired Essential hypertension I10 Pure hypercholesterolemia E78.00 Lump of skin R22.9 Additional Codes ANNA-7 Assessment Billing - ANNA-7 Assessment Tool: ANNA-7 Assessment [id number] ([id number]) Time Spent (min) 23
[2024-05-13 14:04] VITALS: BP 110/62; BMI 28.3
== END 2024-05-13 14:30 | disposition home or self-care (01) ==
PROVIDERS: PCP Internal Medicine; Visit Provider Internal Medicine
DX: E03.9 Hypothyroidism, unspecified (principal); I10 Essential (primary) hypertension; E78.00 Pure hypercholesterolemia, unspecified; R22.9 Localized swelling, mass and lump, unspecified
CPT/HCPCS: 99214; G2211

== ENCOUNTER 2024-05-28 09:20 | Outpatient (AMB) | payer MEDICARE, BC, SELFPAY ==
[2024-05-28 09:21] VITALS: BMI 28.3
--- NOTE | 2024-05-28 09:21 | A.OFFVIS_ITS ---
Vital Signs 05/28/24 09:21 Height 5 ft 11 in Weight 202 lb 15.991 oz BMI 28.3 Intake Visit Reasons: Lump w/keloid scar~ Rt shoulder Intake Note: Patient referred by pcp Dr. Hola Deal for lump w/keloid on Rt shoulder. Patient c/o: reports bilateral inguinal hernias: asymptomatic, reports lump right shoulder. Promotions Officer Required: No Accompanied by: Self / Same As Patient Allergies mollusks Adverse Reaction (Intermediate, Verified 05/28/24 09:30) vomitting HPI Comments Details: Patient. Sensory evaluation of 1. Right shoulder mass 2. Bilateral incidentally found inguinal hernias on a recent CT scan. Patient sustained an injury in the 1960s were he had acromioclavicular trauma. This is over that area that he has the shoulder mass. The inguinal hernias were picked up on this CT scan for prostate issues. Patient denies any inguinal pain or discomfort. He is otherwise tolerating his diet. He is having regular bowel habits. He is quite active and has not had any hernia symptomatology at all. Chart was reviewed and patient evaluate [facility] Medical History Abnormal stress test Right bundle branch block Hypercalcemia Hematospermia Polyarthralgia Meniere disease Impaired glucose tolerance Erectile dysfunction Renal calculi Hypothyroidism BPH (benign prostatic hyperplasia) Pure hypercholesterolemia Essential hypertension Surgical History History of blepharoplasty History of colonoscopy History of surgery Amputation of left index finger Family History Father Prostate cancer Mother Stroke Social History Housing: House Alcohol intake: current Alcohol intake frequency: a few times a week Alcohol type: wine Patient Tobacco Use Status: Former Tobacco user Tobacco use type: Cigarette e-Cigarette/Vaping Use: Never Used Second Hand Smoke Exposure: No service: Yes Current occupational status: retired and disabled Cognitive needs: No Hearing needs: Yes Vision needs: Yes Physical Exam Vital Signs: BMI result Body Mass Index 28.3 Chest Other: Well-developed male. Chest breath sounds bilaterally. Over the right acromioclavicular joint, there was a calcification highly likely related to the patient's trauma in his youth here. No evidence of any tenderness or decreased range of motion. Patient says this is completely asymptomatic as well. GI Other: Patient was examined both supine and standing with Valsalva. Bilateral small inguinal hernias. Genitalia within normal limits. Abdomen is soft, benign. Assessment & Plan Assessment & Plan (1) Bilateral inguinal hernia: Code(s): K40.20 - Bilateral inguinal hernia, without obstruction or gangrene, not specified as recurrent Category: Surgical (2) Mass of joint of shoulder: Code(s): M25.819 - Other specified joint disorders, unspecified shoulder Category: Surgical Plan At present, no surgical intervention warranted for the acromioclavicular calcification or bilateral small inguinal hernias. Should the hernias increased in size become more symptomatic, patient was instructed to call the office or return. Otherwise patient will follow-up p.r.n.. All questions answered. Coding Level of Care Code New Pt Level 4 (91170) Diagnoses Bilateral inguinal hernia K40.20 Mass of joint of shoulder M25.819
== END 2024-05-28 09:29 | disposition home or self-care (01) ==
PROVIDERS: PCP Internal Medicine; Referring Provider Internal Medicine; Visit Provider Surgery
DX: K40.20 Bilateral inguinal hernia, without obstruction or gangrene, not specified as recurrent (principal); M25.819 Other specified joint disorders, unspecified shoulder
CPT/HCPCS: 99204

== ENCOUNTER → 2024-05-28 09:20 | Outpatient (BNVA) | payer MEDICARE, BC, SELFPAY | PROVIDERS: PCP Internal Medicine; Referring Provider Internal Medicine; Visit Provider Surgery | DX: K40.20 Bilateral inguinal hernia, without obstruction or gangrene, not specified as recurrent (principal); M25.819 Other specified joint disorders, unspecified shoulder | CPT/HCPCS: 99202 ==

== ENCOUNTER 2024-12-17 12:33 | Outpatient (AMB) | payer MEDICARE, BC, SELFPAY ==
[2024-12-17 12:35] VITALS: BP 112/70; PULSE 56; BMI 28.9
--- NOTE | 2024-12-17 12:35 | A.OFFVIS_ITS ---
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 Required: No Allergies mollusks Adverse Reaction (Intermediate, Verified 05/28/24 09:30) vomitting Medication List - Last Reconciled 12/17/24 by Andrew Quiñones MD albuterol sulfate 90 mcg/actuation 2 inhalations inhalation Q4-6H PRN aspirin (Ecotrin Low Strength) 81 mg PO DAILY azelaic acid 15% 1 appl topical BID cetirizine (All Day Allergy (cetirizine)) 10 mg PO BID PRN 90 days fluticasone propionate 50 mcg/actuation 1 spray intranasal DAILY 30 days ibuprofen 800 mg PO Q8H PRN 90 days ketotifen fumarate 0.025%(0.035%) 1 drp ophthalmic (eye) BID levothyroxine 88 mcg PO DAILY 90 days losartan 100 mg PO DAILY 90 days rosuvastatin 40 mg PO DAILY 90 days sildenafil 100 mg PO DAILY PRN 5 days tamsulosin 0.4 mg PO DAILY triamcinolone acetonide 0.1% 1 appl topical DAILY 30 days HPI Comments Details: Chris comes for follow-up. He has been doing very well. He recently he is coming back from [place] very was therefore 4 months. He said he was walking every day and can walk up to 7 miles without any symptoms. He said his speed of walking about 4 miles an hour. He said he has been doing well and he has not had any more exertional bilateral throat discomfort with walking anymore. He is currently taking aspirin high-intensity statin therapy. His blood pressures been well optimized. He is scheduled to have fasting blood work next week. He has coronary CTA did show diffuse atherosclerotic in multiple coronary segments with reduced FFR. Denies any heart failure symptoms. Denies any prolonged palpitation irregular heartbeat. COUNT INCLUDES THE [facility] Medical History (Updated 12/17/24 @ 13:02 by Andrew Quiñones MD) CAD (coronary artery disease) Abnormal stress test Right bundle branch block Hypercalcemia Hematospermia Polyarthralgia Meniere disease Impaired glucose tolerance Erectile dysfunction Renal calculi Hypothyroidism BPH (benign prostatic hyperplasia) Pure hypercholesterolemia Essential hypertension Surgical History History of blepharoplasty History of colonoscopy History of surgery Amputation of left index finger Family History Father Prostate cancer Mother Stroke Social History Housing: House Alcohol intake: current Alcohol intake frequency: a few times a week Alcohol type: wine Patient Tobacco Use Status: Former Tobacco user Tobacco use type: Cigarette e-Cigarette/Vaping Use: Never Used Second Hand Smoke Exposure: No service: Yes Current occupational status: retired and disabled Cognitive needs: No Hearing needs: Yes Vision needs: Yes Review of Systems Const Denies chills, Denies fatigue, Denies fever(s), Denies frequent falls, Denies weakness, Denies weight gain and Denies weight loss ENT Denies dizziness Card Denies chest pain, Denies leg edema, Denies lightheadedness, Denies palpitations, Denies dyspnea, Denies dyspnea on exertion, Denies orthopnea and Denies other (loss of consciousness) Resp Denies cough, Denies dyspnea and Denies dyspnea on exertion GI Denies hematochezia and Denies change in stool character Musc Denies abnormal gait, Denies muscle weakness, Denies numbness, Denies radiating pain into limb and Denies tingling Neuro Denies Abnormal speech present, Denies abnormal gait, Denies dizziness, Denies frequent falls, Denies numbness, Denies tingling and Denies weakness Endo Denies fatigue and Denies palpitations Physical Exam Vital Signs: Last Vital Signs Pulse 56 12/17/24 12:35 BP 112/70 12/17/24 12:35 BMI result Body Mass Index 28.9 Const General: cooperative, comfortable, no acute distress, well developed, alert, awake, Physically active and well groomed Nutritional Appearance: average body habitus and well nourished Orientation/consciousness: patient oriented x3 Limitations: no limitations HEENT Head: Yes normocephalic and Yes atraumatic Neck Neck: Yes trachea midline, Yes supple and Yes no JVD Resp Effort & Inspection: normal respiratory effort Auscultation: clear to auscultation bilaterally Cardio Jugular venous distension: no JVD Palpation: normal PMI Rate: regular rate Rhythm: regular rhythm Heart sounds: S1 normal heart sound present, S2 normal heart sound present, no click, no gallops, no murmurs and no rubs Bruits: no carotid bruits GI Auscultation: normal bowel sounds Skin General skin exam: no rashes or lesions noted Neuro General: patient oriented x3 and no focal motor deficits Speech: No Abnormal speech present Extrem General: Yes no clubbing, cyanosis or edema Psych Appearance: grossly normal Assessment & Plan Assessment & Plan (1) CAD (coronary artery disease): Code(s): I25.10 - Atherosclerotic heart disease of elem coronary artery without angina pectoris Category: Medical Plan: Diffuse three-vessel coronary artery disease in the elderly gentleman without any significant current symptoms with exertion with good workload. He used to have bilateral throat tightness which has now resolved. Probably due to lipid modification and aspirin therapy and better blood pressure control. I have discussed with him the findings on the coronary CTA. He is advised to call me with any new symptoms or seek emergency care if he has significant symptoms at rest. He understands. For now continue aspirin as well as high-intensity statin therapy. Advise follow-up lipid panel in near future to target goal LDL closer to 55 mg/dL. Discussed with him about the same. He is going to have blood work done next week. Also suggest an echocardiogram to evaluate for any change in his LV systolic function any regional wall motion abnormality that may require more invasive therapy. He is advised to call me with symptoms and if he was recurrent symptoms will need a cardiac catheterization. For now continue current medical therapy. Will follow up in the clinic in 6 months time, sooner p.r.n.. Thank you for allowing me to partake in his care Coding Level of Care Code Est Pt Level 4 (63529) Complex EM visit Add On G2211 Diagnoses CAD (coronary artery disease) I25.10
--- OUTSIDE RECORDS SUMMARY | 2024-12-17 14:40 | XMS_ITS ---
Author Organization [facility] Address [address] [place] [address] Care Team Providers Care Piece Dyer Name Role Phone Rebecca Garcia Primary Care Provider Unavailab Juan Luis Coelho Unavailable [phone] Allergies No Known Allergies REASON FOR VISIT Patient presents today for a colon recall Medications Medication SIG (Take, Route, Frequency, Duration) Notes Start Date End Date Status Minocycline HCl 100 MG 1 tablet Orally e very 12 hrs Active Ibuprofen 800 MG 1 tablet with food o r milk as needed Orally as needed Active Losartan Potassium 100 MG 1 tablet Orall y Once a day for 30 day(s) Active Fluticasone Propionate - 1 spray in each nostril Externally as directed Active Levothyroxine Sodium 88 MCG 1 tablet on an empty stomach in the morning Orally Once a day Active Albuterol Sulfate 90mcg 2 puffs as neede d Inhalation as needed Active Rosuvastatin Calcium 40 MG 1 tablet Oral ly Once a day Active Azelaic Acid 15 % 1 application Insert Molding Operator ally Twice a day Active Aspir-81 81mg Active Tamsulosin HCl 0.4 MG 1 capsule Orally O nce a day for 30 day(s) Active Cetirizine HCl 10 MG 1 tablet Orally Onc e a day for 30 day(s) Active Vital Signs Temperature 97.5 degrees Fahrenheit 05/16/20 24 Blood pressure systolic 000 mm Hg 05/16/20 24 Blood pressure diastolic 00 mm Hg 024 Height 71 in 05/16/2024 Weight 209 lb 4 oz lbs 05/16/2024 BMI 29.18 kg/m2 05/16/2024 Encounters Encounter Location Date Provider Diagnosis [facility] [address] [place] [address] 05/16/2024 Juan Luis Aguila History of adenomato us polyp of colon Z86.010 ; Long-term use of aspirin therapy Z79.82 and Encounter for screening for malignant neoplasm of colon Z12.11 Assessments Encounter Date Diagnosis (ICD Code) Assessment Notes Treatment Notes Treatment Clinical Notes Section Notes 05/16/2024 History of adenomatous polyp of colon (ICD-10 - Z86.010) Will need a clearance letter from Dr. Quiñones Overall, Mr. Brooks appears quite well. Given his personal history of tubular adenomas of the colon and his last colonoscopy being 5 years ago, I did recommend a followup colonoscopy for further screening purposes. We did review the rationale for this regard to colon cancer prevention. Full consent was obtained for this, including risks of bleeding and perforation. The procedure will be done monitored anesthesia care. He was advised not to use aspirin on the morning of the procedure. I did advise him that we shall schedule the procedure for him later in the year and shortly before he goes to [place]. However, I did advise him that we will need a clearance from his director energy, Dr. Quiñones, in regard to his upcoming workup as well. Mr. Brooks was comfortable with this plan. Thank you again for allowing me to participate in Mr. Brooks's care. I shall continue to keep you advised of his progress. 05/16/2024 Long-term use of aspirin therapy (ICD-10 - Z79.82) Overall, Mr. Brooks appears quite well. Given his personal history of tubular adenomas of the colon and his last colonoscopy being 5 years ago, I did recommend a followup colonoscopy for further screening purposes. We did review the rationale for this regard to colon cancer prevention. Full consent was obtained for this, including risks of bleeding and perforation. The procedure will be done monitored anesthesia care. He was advised not to use aspirin on the morning of the procedure. I did advise him that we shall schedule the procedure for him later in the year and shortly before he goes to [place]. However, I did advise him that we will need a clearance from his director energy, Dr. Quiñones, in regard to his upcoming workup as well. Mr. Brooks was comfortable with this plan. Thank you again for allowing me to participate in Mr. Brooks's care. I shall continue to keep you advised of his progress. 05/16/2024 Encounter for screening for malignant neoplasm of colon (ICD-10 - Z12.11) Do not take the aspirin on the morning of the colonoscopy Overall, Mr. Brooks appears quite well. Given his personal history of tubular adenomas of the colon and his last colonoscopy being 5 years ago, I did recommend a followup colonoscopy for further screening purposes. We did review the rationale for this regard to colon cancer prevention. Full consent was obtained for this, including risks of bleeding and perforation. The procedure will be done monitored anesthesia care. He was advised not to use aspirin on the morning of the procedure. I did advise him that we shall schedule the procedure for him later in the year and shortly before he goes to [place]. However, I did advise him that we will need a clearance from his director energy, Dr. Quiñones, in regard to his upcoming workup as well. Mr. Brooks was comfortable with this plan. Thank you again for allowing me to participate in Mr. Brooks's care. I shall continue to keep you advised of his progress. Plan Of Treatment Treatment Notes Assessment Notes History of adenomatous polyp of colon Wi ll need a clearance letter from Dr. Quiñones Encounter for screening for malignant neoplasm of colon Do not take the aspirin on the morning o f the colonoscopy Future Test Test Name Order Date COLONOSCOPY 05/16/2024 Next Appt Details Follow Up: prn, Reason: Provider Name:Juan Luis Christopher Aguila , 12/27/2024 07:30:00 AM, [address] [place] [address], [phone], Progress Notes * JUAN LUIS BROOKS EDOB: [birth year] (74 yo M)Acc No.[id number]:05/16/2024 Progress Notes Patient:?JUAN LUIS BROOKS Provider:?Juan Luis Aguila MD :1950???Age:74 Y???Sex:Male Danial e:05/16/2024 Address:[address] [place], [place] [id number] Pcp:Rebecca Deal Subjective: * Chief Complaints: * ???Patient presents today fo r a colon recall * HPI: ???incontinence:? I saw Mr. Brooks in the office today for evaluation of his personal history of tubular adenomas of the colon and need for colorectal cancer screening. ?I last saw Mr. Brooks in 2019, at which time he underwent a followup colonoscopy with removal of a small tubular adenoma. He presently feels very well. He enjoys a good appetite, without any significant heartburn or dysphagia. His bowel movements have been regular and without any signs of bleeding. He denies abdominal pain, jaundice, nor unintentional weight loss. He denies any known family history of colorectal cancer. ?He does advise me that he recently had a nuclear stress test with Dr. Quiñones which showed some possible changes. He is scheduled for a CT of his heart in May at [facility]. He says there are no current plans for cardiac catheterization. ?He also advises me that he goes to [place] from early August through November. * ROS:?General/Constitutional:?Change in appetite?denies.?Chills?denies.?Fatigue?denies.?Ophthalmologic:?Patient denies? Negative..?ENT:?Patient denies?Negative..?Respiratory:?Patient denies?No coughing/hemoptysis..?Cardiovascular:?Patient denies? No chest pain/orthopnea..?Gastrointestinal:?Comments?See HPI for details.?Genitourinary:?Patient denies? No dysuria/hematuria..?Musculoskeletal:?Patient denies? No specific arthralgias/myalgias..?Skin:?Patient denies?No rash/pruritus..?Neurologic:?Patient denies? No headaches/seizures..?Psychiatric:?Patient denies?Negative..? * Medical History:? 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 * Family History:?Father: dece ased.?Mother: , diagnosed with HTN (hypertension).? No family hx of colorectal cancer. No family history of liver cancer. * Social History:?Tobacco Use:?Tobacco Use/Smoking?Are you a: former smoker , How long has it been since you last smoked?: > 10 years.?Drugs/Alcohol:?Alcohol Screen?Points: 5, Interpretation: Positive.?Miscellaneous:?Marital status: . Occupation: retired. ???Nonsmoker >10 yrs ago; 1-2 drinks several times a week. * Medications:?TakingTamsulosi n HCl 0.4 MG Capsule 1 capsule Orally Once a dayAzelaic Acid 15 % Gel 1 application Externally Twice a dayRosuvastatin Calcium 40 MG Tablet 1 tablet Orally Once a dayAlbuterol Sulfate 90mcg 2 puffs as needed Inhalation as neededIbuprofen 800 MG Tablet 1 tablet with food or milk as needed Orally as neededMinocycline HCl 100 MG Tablet 1 tablet Orally every 12 hrsLevothyroxine Sodium 88 MCG Tablet 1 tablet on an empty stomach in the morning Orally Once a dayFluticasone Propionate - - 1 spray in each nostril Externally as directedLosartan Potassium 100 MG Tablet 1 tablet Orally Once a dayCetirizine HCl 10 MG Tablet 1 tablet Orally Once a dayAspir-81 81mg Taking Tamsulosin HCl 0.4 MG Capsule 1 capsule Orally Once a dayTaking Azelaic Acid 15 % Gel 1 application Externally Twice a dayTaking Rosuvastatin Calcium 40 MG Tablet 1 tablet Orally Once a dayTaking Albuterol Sulfate 90mcg 2 puffs as needed Inhalation as neededTaking Ibuprofen 800 MG Tablet 1 tablet with food or milk as needed Orally as neededTaking Minocycline HCl 100 MG Tablet 1 tablet Orally every 12 hrsTaking Levothyroxine Sodium 88 MCG Tablet 1 tablet on an empty stomach in the morning Orally Once a dayTaking Fluticasone Propionate - - 1 spray in each nostril Externally as directedTaking Losartan Potassium 100 MG Tablet 1 tablet Orally Once a dayTaking Cetirizine HCl 10 MG Tablet 1 tablet Orally Once a dayTaking Aspir-81 81mg DiscontinuedTriamcinolone Acetonide Three times a daySildenafil Citrate 100 MG Tablet 1 tablet Orally as neededMedication List reviewed and reconciled with the patientDiscontinued Triamcinolone Acetonide Three times a dayDiscontinued Sildenafil Citrate 100 MG Tablet 1 tablet Orally as neededMedication List reviewed and reconciled with the patient * Allergies:?N.K.D.A.yes[Aller gies Verified] Objective: * Vitals:?Wt: 209 lb 4 oz, Ht: 71 in, BMI:29.18 Index, BP: 000/00 mm Hg, Temp: 97.5. * Examination: ???General Examination: ?GENERAL APPEARANCE:?pleasant, well nourished, well developed, in no acute distress.?EYES:?sclera non-icteric.?ORAL CAVITY:?mucosa moist.?NECK/THYROID:?no cervical lymphadenopathy, neck supple.?SKIN:?nonjaundiced, no spider angiomata..?HEART:?S1, S2 normal.?LUNGS:?clear to auscultation bilaterally.?ABDOMEN:?normal bowel sounds, no guarding or rigidity, no hepatosplenomegaly, no masses palpable, soft, nontender, nondistended..?EXTREMITIES:?no edema.?NEUROLOGIC:?alert and oriented.? Assessment: * Assessment: 1.?Long-term use of aspirin therapy - Z79.82 (Primary)?2.?History of adenomatous polyp of colon - Z86.010?3.?Encounter for screening for malignant neoplasm of colon - Z12.11? Overall, Mr. Brooks appears quite well. Given his personal history of tubular adenomas of the colon and his last colonoscopy being 5 years ago, I did recommend a followup colonoscopy for further screening purposes. We did review the rationale for this regard to colon cancer prevention. Full consent was obtained for this, including risks of bleeding and perforation. The procedure will be done monitored anesthesia care. He was advised not to use aspirin on the morning of the procedure. I did advise him that we shall schedule the procedure for him later in the year and shortly before he goes to [place]. However, I did advise him that we will need a clearance from his director energy, Dr. Quiñones, in regard to his upcoming workup as well. Mr. Brooks was comfortable with this plan. Thank you again for allowing me to participate in Mr. Brooks's care. I shall continue to keep you advised of his progress. Plan: * Treatment: Notes: Will need a clearance letter from Dr. Quiñones??2.?Encounter for screening for malignant neoplasm of colon?Procedure: COLONOSCOPY (Ordered for 05/16/2024)* with MACsched for 08/12/24 a t 1:40 pmmiralax Notes: Do not take the aspirin on the morning of the colonoscopy?? * Procedure Codes:?3017F COLOR ECTAL CA SCREEN DOC [id number] TOBACCO [id number]-[id number] BP SCR NOT PRFRM REC REASON NOS * Preventive Medicine:? ??Counseling:?Care goal follow-up plan:?Above Normal BMI Follow-up?Giving encouragement to exercise,?BMI management provided?Yes.? ??Screenings:?Fall Risk Screening?Fall Risk Assessment:?No falls in the past year.? * Follow Up:?prn * * Sign off status: Completed true * Provider:?Juan Luis Aguila MD Date:? 024 Generated for Isabelle mckinney/Ludivina/Stanislavsmitting on:?12/17/2024 02:40 PM EDT History and Physical Notes * HPI (History of Present Illness) Category Sub-Category Detail Notes Category Not es incontinence I saw Mr. Brooks in the office today for evaluation of his personal history of tubular adenomas of the colon and need for colorectal cancer screening. I last saw Mr. Brooks in 2019, at which time he underwent a followup colonoscopy with removal of a small tubular adenoma. He presently feels very well. He enjoys a good appetite, without any significant heartburn or dysphagia. His bowel movements have been regular and without any signs of bleeding. He denies abdominal pain, jaundice, nor unintentional weight loss. He denies any known family history of colorectal cancer. He does advise me that he recently had a nuclear stress test with Dr. Quiñones which showed some possible changes. He is scheduled for a CT of his heart in May at [facility]. He says there are no current plans for cardiac catheterization. He also advises me that he goes to [place] from early August through November. Examination Category Sub-Category Detail Notes Category Not es General Examination GENERAL APPEARANCE: pleasant , well nourished, well developed, in no acute distress EYES: sclera non-icteric NECK/THYROID: no cervical lymphade nopathy, neck supple HEART: S1, S2 normal LUNGS: clear to auscultatio n bilaterally ABDOMEN: normal bowel sounds, no guarding or rigidity, no hepatosplenomegaly, no masses palpable, soft, nontender, nondistended. NEUROLOGIC: alert and oriented SKIN: nonjaundiced, no spi ernesto angiomata. EXTREMITIES: no edema ORAL CAVITY: mucosa moist
--- OUTSIDE RECORDS SUMMARY | 2024-12-17 14:40 | XMS_ITS | Patient Health Record ---
Author Organization [facility] Address [address] [place] [address] Care Team Providers Care Market Analysis Director Name Role Phone Rebecca Garcia Primary Care Provider Unavailab Juan Luis Coelho Unavailable [phone] Allergies No Known Allergies Reason For Referral No Information Medications Medication SIG (Take, Route, Frequency, Duration) Notes Start Date End Date Status Minocycline HCl 100 MG 1 tablet Orally e very 12 hrs Active Ibuprofen 800 MG 1 tablet with food o r milk as needed Orally as needed Active Albuterol Sulfate 90mcg 2 puffs as neede d Inhalation as needed Active Rosuvastatin Calcium 40 MG 1 tablet Oral ly Once a day Active Azelaic Acid 15 % 1 application Pattern Room Attendant ally Twice a day Active Aspir-81 81mg Active Tamsulosin HCl 0.4 MG 1 capsule Orally O nce a day for 30 day(s) Active Cetirizine HCl 10 MG 1 tablet Orally Onc e a day for 30 day(s) Active Losartan Potassium 100 MG 1 tablet Orall y Once a day for 30 day(s) Active Fluticasone Propionate - 1 spray in each nostril Externally as directed Active Levothyroxine Sodium 88 MCG 1 tablet on an empty stomach in the morning Orally Once a day Active Immunizations Vaccine Route Administration Date Status Comme nts Influenza Unknown 07/04/2018 Administered Influenza Unknown 08/08/2023 Administered Problems Problem Type SNOMED Code ICD Code Onset Dates Problem Status W/U Status Risk Notes Problem 554875306 Encounter for screening for malignant neoplasm of colon (Z12.11) Active confirmed Problem 791241185 History of adenomatous polyp of colon (Z86.010) Active confirmed Problem 112417194443325 Preprocedural examination (Z01.818) Active confirmed Problem Long-term current use of antiplatelet drug (732173775985189) Long-term use of aspirin therapy (Z79.82) Active confirmed Vital Signs Temperature 97.5 degrees Fahrenheit 05/16/2024 Blood pressure diastolic 00 mm Hg 05/16/2024 Height 71 in 05/16/2024 Blood pressure systolic 000 mm Hg 05/16/2024 Weight 209 lb 4 oz lbs 05/16/2024 BMI 29.18 kg/m2 05/16/2024 Encounters Encounter Location Date Provider Diagnosis [facility] [address] [place] [address] 05/16/2024 Juan Luis Aguila History of adenomato [...] year and shortly before he goes to [place]. However, I did advise him that we will need a clearance from his provider relations consultant, Dr. Quiñones, in regard to his upcoming [...] year and shortly before he goes to [place]. However, I did advise him that we will need a clearance from his provider relations consultant, Dr. Quiñones, in regard to his upcoming [...] year and shortly before he goes to [place]. However, I did advise him that we will need a clearance from his provider relations consultant, Dr. Quiñones, in regard to his upcoming workup as well. Mr. Brooks was comfortable with this plan. Thank you again for allowing me to participate in Mr. Brooks's care. I shall continue to keep you advised of his progress. Plan Of Treatment Future Test Test Name Order Date COLONOSCOPY 07/16/2013 COLONOSCOPY 11/29/2018 COLONOSCOPY 05/16/2024 Next Appt Details Provider Name:Juan Luis Aguila , 12/27/2024 07:30:00 AM, [address] [facility] , [place], [place], [phone], Insurance Providers Payer Name Payer Address Payer Phone Subscriber Number Group Number Insured Name Patient Relationship to Insured Coverage Start Date Coverage End Date MEDICARE OF [place] [address] JUNA[place]LINCOLNCora [place] [id number] TODDJUAN LUIS Self - patient is the insured [facility] [address] [place], [place] [id number] [phone] [id number] JUAN LUIS BROOKS Self - patient is the insured Medical (General) History Medical History History ICD Code Colonoscopy in 2007, 2001,--all negative except for a small tubular adenoma removed in 1997--he does have some mild diverticulosis and small internal hemorrhoids Hyperlipidemia Asthma Arthritis Acne rosacea Denies NM,DM,CVA,renal disease HTN Colonoscopy 08/2013-small tubular adenom a removed Hypothyroidism Broken left femoral head Colonoscopy in 2018 with a small tubular adenoma removed Sees Dr. 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
--- OUTSIDE RECORDS SUMMARY | 2024-12-17 14:40 | XMS_ITS ---
Author Organization [facility] Address [address] [place] [address] Care Team Providers Care Lunch Cook Name Role Phone Rebecca Garcia Primary Care Provider Unavailab Juan Luis Coelho Unavailable [phone] REASON FOR VISIT screening, hx polyps Encounters Encounter Location Date Provider Diagnosis [facility] Outpatient [address] [place] [phone] 08/12/2024 Juan Luis Aguila Plan Of Treatment Next Appt Details Provider Name:Juan Luis Aguila , 12/27/2024 07:30:00 AM, [address] [place] [address], [phone], Progress Notes * JUAN LUIS BROOKS EDOB: [birth year] (74 yo M)Acc No.[id number]:08/12/2024 COLON WITH MAC Patient:?JUAN LUIS BROOKS Provider:?Juan Luis Aguila MD :1950???Age:74 Y???Sex:Male Danial e:08/12/2024 Address:[address] [place], [place] [id number] Pcp:Rebecca Deal Subjective: * Chief Complaints: * ???1. Screening, hx polyps. * Medical History:? Objective: * Vitals:? Assessment: Plan: * Treatment: * * The named appointment provid er may or may not be the originator of this progress note, and it is not deemed complete until electronically signed by the appointment provider. Sign off status: Pending * Provider:?Juan Luis Aguila MD Date:? 024 Generated for Isabelle mckinney/Ludivina/Katieitting on:?12/17/2024 02:40 PM EDT
== END 2024-12-17 13:02 | disposition home or self-care (01) ==
LOC: HO.HCS 12:33
PROVIDERS: PCP Internal Medicine; Visit Provider Internal Medicine Cardiovascular Disease
DX: I25.10 Atherosclerotic heart disease of native coronary artery without angina pectoris (principal)
CPT/HCPCS: 99214; G2211

== ENCOUNTER → 2024-12-17 12:33 | Outpatient (BNVA) | payer MEDICARE, BC, SELFPAY | PROVIDERS: PCP Internal Medicine; Visit Provider Internal Medicine Cardiovascular Disease | DX: I25.10 Atherosclerotic heart disease of native coronary artery without angina pectoris (principal) | CPT/HCPCS: 99212 ==

== ENCOUNTER 2024-12-27 06:15 | Day surgery (SDC) | payer MEDICARE, BC, SELFPAY ==
--- OUTSIDE RECORDS SUMMARY | 2024-12-20 12:56 | XMS_ITS ---
Author Organization [facility] Address [address] [place] [address] Care Team Providers Care Project Consultant Name Role Phone Rebecca Garcia Primary Care Provider Unavailab Juan Luis Coelho Unavailable [phone] Allergies No Known Allergies REASON FOR VISIT [...] Active Azelaic Acid 15 % 1 application Pool Hall Inspector ally Twice a day Active Aspir-81 81mg [...] 05/16/2024 Encounters Encounter Location Date Provider Diagnosis [facility] [address] [place] [address] 05/16/2024 Juan Luis Aguila History of adenomato [...] year and shortly before he goes to [place]. However, I did advise him that we will need a clearance from his outreach clinician, Dr. Quiñones, in regard to his upcoming [...] year and shortly before he goes to [place]. However, I did advise him that we will need a clearance from his outreach clinician, Dr. Quiñones, in regard to his upcoming [...] year and shortly before he goes to [place]. However, I did advise him that we will need a clearance from his outreach clinician, Dr. Quiñones, in regard to his upcoming [...] Luis Christopher Aguila , 12/27/2024 07:30:00 AM, [address] [place] [address], [phone], Progress Notes * JUAN LUIS BROOKS EDOB: [birth year] (74 yo M)Acc No.[id number]:05/16/2024 Progress Notes Patient:?JUAN LUIS BROOKS Provider:?Juan Luis Aguila MD :1950???Age:74 Y???Sex:Male Danial e:05/16/2024 Address:[address] [place], [place] [id number] Pcp:Rebecca Deal Subjective: * Chief Complaints: * [...] CT of his heart in May at [facility]. He says there are no current plans for cardiac catheterization. ?He also advises me that he goes to [place] from early August through November. * ROS:?General/Constitutional:?Change [...] year and shortly before he goes to [place]. However, I did advise him that we will need a clearance from his outreach clinician, Dr. Quiñones, in regard to his upcoming [...] Procedure Codes:?3017F COLOR ECTAL CA SCREEN DOC [id number] TOBACCO [id number] BP SCR NOT PRFRM REC REASON NOS * Preventive Medicine:? ??Counseling:?Care goal follow-up plan:?Above Normal BMI Follow-up?Giving encouragement to exercise,?BMI management provided?Yes.? ??Screenings:?Fall Risk Screening?Fall Risk Assessment:?No falls in the past year.? * Follow Up:?prn * * Sign off status: Completed true * Provider:?Juan Luis Aguila MD Date:? 024 Generated for Isabelle mckinney/Ludivina/Katieitting on:?12/20/2024 12:55 PM EDT History and Physical Notes * [...] CT of his heart in May at [facility]. He says there are no current plans for cardiac catheterization. He also advises me that he goes to [place] from early August through November. Examination Category [...]
--- OUTSIDE RECORDS SUMMARY | 2024-12-20 12:56 | XMS_ITS ---
Author Organization [facility] Address [address] [place] [address] Care Team Providers Care Collective Bargaining Specialist Name Role Phone Rebecca Garcia Primary Care Provider Unavailab Juan Luis Coelho Unavailable [phone] REASON FOR VISIT screening, hx polyps Encounters Encounter Location Date Provider Diagnosis [facility] Outpatient [address] [place] [phone] 08/12/2024 Juan Luis Aguila Plan Of Treatment Next Appt Details Provider Name:Juan Luis Aguila , 12/27/2024 07:30:00 AM, [address] [place] [address], [phone], Progress Notes * JUAN LUIS BROOKS EDOB: [birth year] (74 yo M)Acc No.[id number]:08/12/2024 COLON WITH MAC Patient:?JUAN LUIS BROOKS Provider:?Juan Luis Aguila MD :1950???Age:74 Y???Sex:Male Danial e:08/12/2024 Address:[address] [place], [place] [id number] Pcp:Rebecac Deal Subjective: * Chief Complaints: * ???1. [...]
--- OUTSIDE RECORDS SUMMARY | 2024-12-20 12:56 | XMS_ITS | Patient Health Record ---
Author Organization [facility] Address [address] [place] [address] Care Team Providers Care Wool Presser Name Role Phone Rebecca Garcia Primary Care Provider Unavailab Juan Luis Coelho Unavailable [phone] Allergies No Known Allergies Reason For Referral [...] Active Azelaic Acid 15 % 1 application Dental Associate ally Twice a day Active Aspir-81 81mg [...] Problem Status W/U Status Risk Notes Problem [id number] Encounter for screening for malignant neoplasm of colon (Z12.11) Active confirmed Problem [id number] History of adenomatous polyp of colon (Z86.010) Active confirmed Problem 846343781955420 Preprocedural examination (Z01.818) Active confirmed Problem Long-term current use of antiplatelet drug (011133284499080) Long-term use of aspirin therapy (Z79.82) Active confirmed Vital Signs Temperature 97.5 degrees Fahrenheit 05/16/2024 Blood pressure diastolic 00 mm Hg 05/16/2024 Height 71 in 05/16/2024 Blood pressure systolic 000 mm Hg 05/16/2024 Weight 209 lb 4 oz lbs 05/16/2024 BMI 29.18 kg/m2 05/16/2024 Encounters Encounter Location Date Provider Diagnosis [facility] [address] [place] [address] 05/16/2024 Juan Luis Aguila History of adenomato [...] year and shortly before he goes to [place]. However, I did advise him that we will need a clearance from his cover remover, Dr. Quiñones, in regard to his upcoming [...] year and shortly before he goes to [place]. However, I did advise him that we will need a clearance from his cover remover, Dr. Quiñones, in regard to his upcoming [...] year and shortly before he goes to [place]. However, I did advise him that we will need a clearance from his cover remover, Dr. Quiñones, in regard to his upcoming [...] Luis Aguila , 12/27/2024 07:30:00 AM, [address] [facility] , [place], [place], [id number], Insurance Providers Payer Name Payer Address Payer Phone Subscriber Number Group Number Insured Name Patient Relationship to Insured Coverage Start Date Coverage End Date MEDICARE OF [place] [address] JUNA[place]LINCOLNCora Gerardo [place] [id number] TODDJUAN LUIS Self - patient is the insured [employer] [address] [place], [place] [id number] JUAN LUIS BROOKS Self - patient is the insured Medical (General) History Medical History History ICD Code Colonoscopy in 2007, 2001,--all negative except for a small tubular adenoma removed in 1997--he does have some mild diverticulosis and small internal hemorrhoids Hyperlipidemia Asthma Arthritis Acne rosacea Denies [place],DM,CVA,renal disease HTN Colonoscopy 08/2013-small tubular adenom a removed Hypothyroidism Broken left femoral head Colonoscopy in 2018 with a small tubular adenoma removed Sees Dr. Quiñones-had an ETT 2023 with some changes and scheduled for a cardiac CT at [facility] 05/2024 Kidney stone Surgical History Surgery Date(Month/Year) tonsillectomy and adenoidectomy finger amputation-tip of the left index finger
--- NOTE | 2024-12-25 13:35 | HO.ANESPROP2 ---
HPI - Anesthesia Eval Consult details Narrative: 74yo M for Colonoscopy Follows [facility] Cardiology for CAD. Stable at 12/17/2024 office visit [facility] Active Problems Active Problems: All Active Problems CAD (coronary artery disease) (Acute) Mass of joint of shoulder (Acute) Bilateral inguinal hernia (Acute) Lump of skin (Acute) Keloid scar (Acute) Bifascicular block (Acute) Sinus bradycardia (Acute) Encounter for Medicare annual wellness exam (Acute) Carotid bruit (Acute) Adult general medical exam (Acute) Screening for prostate cancer (Acute) Hypercalcemia (Acute) Hematospermia (Acute) Polyarthralgia (Acute) Meniere disease (Acute) Impaired glucose tolerance (Acute) Erectile dysfunction (Acute) Renal calculi (Acute) Hypothyroidism (Acute) BPH (benign prostatic hyperplasia) (Acute) Pure hypercholesterolemia (Acute) Essential hypertension (Acute) Past Medical History Medical History (Updated 12/17/24 @ 13:02 by Andrew Quiñones MD) CAD (coronary artery disease) Abnormal stress test Right bundle branch block Hypercalcemia Hematospermia Polyarthralgia Meniere disease Impaired glucose tolerance Erectile dysfunction Renal calculi Hypothyroidism BPH (benign prostatic hyperplasia) Pure hypercholesterolemia Essential hypertension Family History Family History Father Prostate cancer Mother Stroke Surgical History Surgical History History of blepharoplasty History of colonoscopy History of surgery Amputation of left index finger Social History Social History Housing: House Alcohol intake: current Alcohol intake frequency: a few times a week Alcohol type: wine Patient Tobacco Use Status: Former Tobacco user Tobacco use type: Cigarette e-Cigarette/Vaping Use: Never Used Second Hand Smoke Exposure: No service: Yes Current occupational status: retired and disabled Cognitive needs: No Hearing needs: Yes Vision needs: Yes Meds Allergies Allergy/AdvReac Type Severity Reaction Status Date / Time mollusks AdvReac Intermediate vomitting Verified 05/28/24 09:30 Home Medications ?Medication ?Instructions ?Recorded ?Confirmed ?Last Taken ?Type ketotifen fumarate 0.025 % (0.035 1 drp ophthalmic (eye) BID 08/03/20 12/17/24 Unknown History %) eye drops tamsulosin 0.4 mg capsule 0.4 mg PO DAILY 08/03/20 12/17/24 Unknown History azelaic acid 15 % topical gel 1 appl topical BID 01/08/24 12/17/24 Unknown History Exam Narrative Narrative: ECHO 2023 Conclusions: - The left ventricular systolic function is normal. The visually estimated ejection fraction is between 55-60%. - No obvious valvular pathology seen on this study. NM cardiolite stress test 2023 Impression: 1. Equivocal for inferior and inferoseptal ischemia in RCA territory 2. Gated LVEF is 55% 3. Transient ischemic dilatation not present Stress EKG is negative for ischemia CT Heart 06/2024 1. Widespread prominently calcified plaque. 2. Minimal left main stenosis less than 25%. 3. Mild proximal and mid LAD stenoses 25-49%. 4. Moderate stenoses (50-69%) in the first and second obtuse marginal branches with minimal stenosis (less than 25%) elsewhere in the circumflex. 5. Moderate stenosis in the proximal-mid RCA of approximately 50%, with minimal stenoses more distally. 6. Mild to moderate, scattered pericardial calcification without pericardial effusion, unchanged from 2008. Assessment and Plan Assessment Anesthesia Assessment: Chart Reviewed
[2024-12-25 14:42] VITALS: BMI 29.1
[2024-12-27 06:45] VITALS: BP 128/76; PULSE 76; RESP 14; TEMP 36.4; O2SAT 100; BMI 28.2
[2024-12-27] MEDS: Lactated Ringers 1,000 ML 100 ML IVCONT (07:06)
--- NOTE | 2024-12-27 07:21 | P.CONAN_ITS ---
[facility] Active Problems Active Problems: All Active Problems Mass of joint of shoulder (Acute) Bilateral inguinal hernia (Acute) Lump of skin (Acute) Keloid scar (Acute) Bifascicular block (Acute) Sinus bradycardia (Acute) Encounter for Medicare annual wellness exam (Acute) Carotid bruit (Acute) Adult general medical exam (Acute) Screening for prostate cancer (Acute) CAD (coronary artery disease) (Acute) Hypercalcemia (Acute) Hematospermia (Acute) Polyarthralgia (Acute) Meniere disease (Acute) Impaired glucose tolerance (Acute) Erectile dysfunction (Acute) Renal calculi (Acute) Hypothyroidism (Acute) BPH (benign prostatic hyperplasia) (Acute) Pure hypercholesterolemia (Acute) Essential hypertension (Acute) Past Medical History Medical History Broken leg HTN (hypertension) Acne rosacea Arthritis Asthma Hyperlipidemia CAD (coronary artery disease) Abnormal stress test Right bundle branch block Hypercalcemia Hematospermia Polyarthralgia Meniere disease Impaired glucose tolerance Erectile dysfunction Renal calculi Hypothyroidism BPH (benign prostatic hyperplasia) Pure hypercholesterolemia Essential hypertension Functional capacity: independent ambulation Family History Family History Father Prostate cancer Mother Stroke Family history of problems with anesthesia: No Surgical History Surgical History History of blepharoplasty History of colonoscopy History of surgery Amputation of left index finger History of Problems with Anesthesia: No Social History Social History Housing: House Are you a primary behavioral health care manager to a significant other at home: No Do you presently have visiting nurse or other home services: No Alcohol intake: current Alcohol intake frequency: a few times a week Alcohol type: wine Patient Tobacco Use Status: Former Tobacco user Tobacco use type: Cigarette e-Cigarette/Vaping Use: Never Used Second Hand Smoke Exposure: No Use of substances other than those prescribed or required for medical reasons: No Have you been hit, kicked, punched, or otherwise hurt by someone within the past year? If so, by whom?: No Are you DNR?: No Advance Directives: No Advance Directives Information Provided: Yes Poor oral hygiene: No service: Yes Current occupational status: retired and disabled Cognitive needs: No Hearing needs: Yes Vision needs: Yes Meds Allergies Allergy/AdvReac Type Severity Reaction Status Date / Time mollusks AdvReac Intermediate vomitting Verified 05/28/24 09:30 Active Medications: Current Medications Lactated Ringer's (Lr) 1,000 mls @ 100 mls/hr IVCONT .Q10H HENRRY Last Admin: 12/27/24 07:06 Dose: 100 mls/hr Sodium Biphosphate/Sodium Phosphate (Sodium Phosphate,[place]-Dibasic 133 Ml Enema) 133 ml CA ONCE PRN PRN Reason: Poor Colonoscopy Prep Results Home Medications ?Medication ?Instructions ?Recorded ?Confirmed ?Last Taken ?Type tamsulosin 0.4 mg capsule 0.4 mg PO DAILY 08/03/20 12/25/24 Unknown History azelaic acid 15 % topical gel 1 appl topical BID 12/25/24 12/25/24 Unknown History minocycline 100 mg capsule 100 mg PO BID 12/25/24 12/25/24 Unknown History Exam Height,Weight and Vital Signs: Height 5 ft 11 in Weight 91.626 kg Last Vital Signs Temp 97.5 F 12/27/24 06:45 Pulse 76 12/27/24 06:45 Resp 14 12/27/24 06:45 BP 128/76 12/27/24 06:45 Pulse Ox 100 12/27/24 06:45 O2 Del Method Room Air 12/27/24 06:45 Airway Mallampati Class: II TM Dist: >3cm Neck ROM: Full Heart: RRR Lungs: CTA Assessment and Plan Assessment Anesthesia Assessment: Anesthesia Plan Discussed and Chart Reviewed Final Anesthetic Review Family History of Problems with Anesthesia: No History of Problems with Anesthesia: No NPO: Yes ASA Class: III Final Preanesthetic Review: Meds/Allgs Chart Reviewed, Consent Obtained/Reviewed and Anes Risks/Benef Reviewed Patient Risk: Intermediate Procedure Risk: Low Anesthetic Plan Anesthetic Plan: MAC: Disposition: Standard PACU
[2024-12-27 08:58] VITALS: BP 91/57; PULSE 65; RESP 16; TEMP 36.3; O2SAT 99
--- NOTE | 2024-12-27 09:02 | PM.OP ---
Brief Operative Note Date of Service: 12/27/24 Pre-op diagnosis: Screening Post-op diagnosis: other (Polyp) Procedure: Colonoscopy to the cecum with bx/removal of polyp Surgeon: Chris Aguila MD Anesthesia: MAC Was an Supervisor Of Instruction used for this Procedure?: No Estimated blood loss (mL): 2.0 Pathology: other (A. Rectal polyp) Condition: stable Disposition: PACU
[2024-12-27 09:13] VITALS: BP 102/60; PULSE 70; RESP 16; TEMP 36.3; O2SAT 98
--- NOTE | 2024-12-27 09:17 | OP_ITS ---
DATE OF SERVICE: 12/27/2024 SURGEON: Chris Aguila MD INDICATIONS: The patient presents for followup of personal history of tubular adenomas of the colon and need for colorectal cancer screening. Full consent has been obtained from him for this, including risks of bleeding and perforation. PREOPERATIVE DIAGNOSIS: POSTOPERATIVE DIAGNOSIS: PROCEDURE PERFORMED: Colonoscopy to cecum with biopsy removal of polyp. ESTIMATED BLOOD LOSS: COMPLICATIONS: ANESTHESIA: Monitored anesthesia care. ASSISTANTS: SPECIMENS: PREOPERATIVE DIAGNOSES: Personal history of tubular adenomas of the colon and colorectal cancer screening. POSTOPERATIVE DIAGNOSES: Personal history of tubular adenomas of the colon and colorectal cancer screening, small colon polyp, diverticulosis, and internal hemorrhoids. DESCRIPTION OF PROCEDURE: The patient was placed in left lateral decubitus position. The digital rectal exam revealed some external hemorrhoids. The Olympus video pediatric colonoscope was entered into the rectum and advanced easily to the cecum. Once in the cecum, I did identify normal-appearing cecal pouch with appendiceal orifice and a normal-appearing ileocecal valve. The entire cecum and ileocecal valve appeared normal. The scope was slowly withdrawn assessing all mucosal surfaces carefully. Preparation was excellent. There was a moderate amount of sigmoid diverticulosis. I did not visualize any sign of colitis nor angiodysplasia. In the rectum was a 3 or 4 mm polyp, which was biopsied and removed with cold biopsy forceps. The scope was retroflexed visualizing internal hemorrhoids, but no other pathology. The scope was straightened and withdrawn from the patient. He tolerated the procedure well and was returned to recovery area in stable condition. IMPRESSION: 1. Small rectal polyp, status post biopsy and removal. 2. Diverticulosis. 3. Internal hemorrhoids. PLAN: Given these minimal findings and his age, I do not think he would need any further screening colonoscopies. He was advised to resume his aspirin today. He will otherwise see me on a p.r.n. basis. Chris Aguila MD RMBreann/BRUCEL / [phone]
--- NOTE | 2024-12-27 14:35 | HO.POSTANES ---
Post Anesthesia Evaluation Post Anesthesia Evaluation Date of Service: 12/27/24 Vital Signs: Vital Signs Temp Pulse Resp BP Pulse Ox O2 Del Method 12/27/24 09:13 97.3 F 70 16 102/60 98 Room Air 12/27/24 08:58 97.3 F 65 16 91/57 L 99 Room Air 12/27/24 06:45 97.5 F 76 14 128/76 100 Room Air Anesthesia: Monitored Mental Status: Awake Pain Control: Satisfactory Nausea/Vomiting: None Hydration: Adequate Anesthesia-Related Issues: No Anes. Related Issues
== END 2024-12-27 09:41 | disposition home or self-care (01) ==
PROVIDERS: PCP Internal Medicine; Visit Provider Internal Medicine
PROC: 0DJD8ZZ Inspection of Lower Intestinal Tract, Via Natural or Artificial Opening Endoscopic (ICD-10-PCS; CPT 45378; principal; 2024-12-27 07:30)
DX: Z12.11 Encounter for screening for malignant neoplasm of colon (principal); Z86.0101 Personal history of adenomatous and serrated colon polyps; K62.1 Rectal polyp; K57.30 Diverticulosis of large intestine without perforation or abscess without bleeding; K64.8 Other hemorrhoids; I10 Essential (primary) hypertension; I25.10 Atherosclerotic heart disease of native coronary artery without angina pectoris; E78.5 Hyperlipidemia, unspecified; E03.9 Hypothyroidism, unspecified; L71.9 Rosacea, unspecified; N20.0 Calculus of kidney; J45.909 Unspecified asthma, uncomplicated; Z79.1 Long term (current) use of non-steroidal anti-inflammatories (NSAID); Z79.82 Long term (current) use of aspirin; Z79.899 Other long term (current) drug therapy; Z91.013 Allergy to seafood; Z87.891 Personal history of nicotine dependence; Z98.890 Other specified postprocedural states
CPT/HCPCS: 45380; 88305; J2003; J2704

== ENCOUNTER 2024-12-30 08:42 | Outpatient (REF) | payer MEDICARE, BC, SELFPAY ==
--- OUTSIDE RECORDS SUMMARY | 2024-12-30 09:19 | XMS_ITS ---
Author Organization [facility] Address [address] [place] [address] Care Team Providers Care Lead Infrastructure Architect Name Role Phone Rebecca Garcia Primary Care Provider UnavailJuan Luis Reyes Unavailable [phone] Allergies No Known Allergies REASON FOR VISIT [...] Active Azelaic Acid 15 % 1 application Safety Instructor ally Twice a day Active Aspir-81 81mg [...] 05/16/2024 Encounters Encounter Location Date Provider Diagnosis [facility] [address] [place] [address] 05/16/2024 Juan Luis Aguila History of adenomato [...] year and shortly before he goes to [place]. However, I did advise him that we will need a clearance from his mash filter operator, Dr. Quiñones, in regard to his upcoming [...] year and shortly before he goes to [place]. However, I did advise him that we will need a clearance from his mash filter operator, Dr. Quiñones, in regard to his upcoming [...] year and shortly before he goes to [place]. However, I did advise him that we will need a clearance from his mash filter operator, Dr. Quiñones, in regard to his upcoming [...] Next Appt Details Follow Up: prn, Reason: Progress Notes * JUAN LUIS BROOKS EDOB: [birth year] (74 yo M)Acc No.[id number]:05/16/2024 Progress Notes Patient:?JUAN LUIS BROOKS Provider:?Juan Luis Aguila MD :1950???Age:74 Y???Sex:Male Danial e:05/16/2024 Address:[address] [place] [address], [facility] Pcp:Rebecca Deal Subjective: * Chief Complaints: * [...] CT of his heart in May at [facility]. He says there are no current plans for cardiac catheterization. ?He also advises me that he goes to [place] from early August through November. * ROS:?General/Constitutional:?Change [...] year and shortly before he goes to [place]. However, I did advise him that we will need a clearance from his mash filter operator, Dr. Quiñones, in regard to his upcoming [...] Procedure Codes:?3017F COLOR ECTAL CA SCREEN DOC [id number] TOBACCO NON-[id number] BP SCR NOT PRFRM REC REASON NOS * Preventive Medicine:? ??Counseling:?Care goal follow-up plan:?Above Normal BMI Follow-up?Giving encouragement to exercise,?BMI management provided?Yes.? ??Screenings:?Fall Risk Screening?Fall Risk Assessment:?No falls in the past year.? * Follow Up:?prn * * Sign off status: Completed true * Provider:?Juan Luis Aguila MD Date:? 024 Generated for Isabelle mckinney/Ludivina/Katieitting on:?12/30/2024 09:19 AM EDT History and Physical Notes * HPI [...] CT of his heart in May at [facility]. He says there are no current plans for cardiac catheterization. He also advises me that he goes to [place] from early August through November. Examination Category [...]
--- OUTSIDE RECORDS SUMMARY | 2024-12-30 09:19 | XMS_ITS | Encounter Summary ---
Author Organization [facility] Address [address] [place] [address] Care Team Providers Care Dry Color Mixer Name Role Phone Rebecca Deal MD Primary Care Provider [phone] Encounter Details Date Type Department Care Team (Late st Contact Info) Description 12/23/2024 Lab Requisition [facility] - Main Lab [address] [facility] [place] [address] Caitlin Godoy NP [address] [facility] [address] [place] [address] Nodular prostate with lower urinary tract symptoms Social History Tobacco Use Types Packs/Day Years Used Date Smoking Tobacco: Never Assessed Sex and Gender Information Value Date Recorded Sex Assigned at Not on file Legal Sex Male 10:44 AM EST Gender Identity Not on file Sexual Orientation Not on file documented as of this encounter Plan of Treatment Not on file documented as of this encounter Procedures Procedure Name Priority Date/Time Associated Diagnosis Comments PROSTATE SPECIFIC ANTIGEN DIAGNOSTIC Routine 12/23/2024 9:21 AM EDT Nodular prostate with lower urinary tract symptoms documented in this encounter Results * Prostate specific antigen diagnostic (12/23/2024 9:21 AM EDT) PSA 0.68 0.00 - 4.00 ng/mL LAB CHEMISTRY METHOD 12/23/2024 1:30 PM EDT [facility] Blood Venous blood specimen / Unknown 12/23/2024 9:21 AM EDT 12/23/2024 12:49 PM EDT Narrative [facility] - 12/23/2024 1:30 PM EDT The Siemens Advia LogicLadderaur Chemiluminescent Immunoassay is used. Results obtained with different assay methods or kits cannot be used interchangeably. Results cannot be interpreted as absolute evidence of the presence or absence of malignant disease. us Caitlin Godoy HAND TWISTER LAB BLOOD ORDERABLES Tali laureano Result [facility] [address] [place] [address], documented in this encounter Visit Diagnoses Diagnosis Nodular prostate with lower urinary tract symptoms documented in this encounter Care Teams Dry Color Mixer Relationship Specialty Start Date End Date Rebecca Deal MD [address] [place] [address] PCP - General Internal Medicine 12/23/24 documented as of this encounter
--- OUTSIDE RECORDS SUMMARY | 2024-12-30 09:19 | XMS_ITS ---
Author Organization [facility] Address [address] [place] [address] Care Team Providers Care Medical Officer Name Role Phone Rebecca Garcia Primary Care Provider Unavailab Juan Luis Coelho Unavailable [phone] REASON FOR VISIT screening, hx polyps Encounters Encounter Location Date Provider Diagnosis [facility] [place] [address] [place] [phone] 08/12/2024 Juan Luis Aguila Plan Of Treatment No Information Progress Notes * JUAN LUIS BROOKS EDOB: [birth year] (74 yo M)Acc No.[id number]:08/12/2024 COLON WITH MAC Patient:?JUAN LUIS BROOKS Provider:?Juan Luis Aguila MD :1950???Age:74 Y???Sex:Male Danial e:08/12/2024 Address:[address] [place], [place] [id number] Pcp:Rebecca Deal Subjective: * Chief Complaints: * [...] Luis Aguila MD Date:? 024 Generated for Printi ng/Faxing/eTransmitting on:?12/30/2024 09:19 AM EDT
--- OUTSIDE RECORDS SUMMARY | 2024-12-30 09:20 | XMS_ITS | Patient Health Record ---
Author Organization [facility] Address [address] [place] [address] Care Team Providers Care Volleyball Assembler Name Role Phone Rebecca Garcia Primary Care Provider Unavailab Juan Luis Coelho Unavailable [phone] Allergies No Known Allergies Reason For Referral [...] Active Azelaic Acid 15 % 1 application Professor Of Management ally Twice a day Active Aspir-81 81mg [...] Problem Status W/U Status Risk Notes Problem 429630300 Encounter for screening for malignant neoplasm of colon (Z12.11) Active confirmed Problem 453519941 History of adenomatous polyp of colon (Z86.010) Active confirmed Problem 688182720314352 Preprocedural examination (Z01.818) Active confirmed Problem Long-term current use of antiplatelet drug (073904293626046) Long-term use of aspirin therapy (Z79.82) Active confirmed Vital Signs Temperature 97.5 degrees Fahrenheit 05/16/2024 Blood pressure diastolic 00 mm Hg 05/16/2024 Height 71 in 05/16/2024 Blood pressure systolic 000 mm Hg 05/16/2024 Weight 209 lb 4 oz lbs 05/16/2024 BMI 29.18 kg/m2 05/16/2024 Encounters Encounter Location Date Provider Diagnosis [facility] Outpatient [address] [place], [place] [phone] 12/27/2024 Juan Luis Aguila [facility] [address] [place] [address] 05/16/2024 Juan Luis Aguila History of adenomatous polyp of colon Z86.010 ; Long-term use [...] year and shortly before he goes to [place]. However, I did advise him that we will need a clearance from his packer inspector, Dr. Quiñones, in regard to his upcoming [...] year and shortly before he goes to [place]. However, I did advise him that we will need a clearance from his packer inspector, Dr. Quiñones, in regard to his upcoming [...] year and shortly before he goes to [place]. However, I did advise him that we will need a clearance from his packer inspector, Dr. Quiñones, in regard to his upcoming workup as well. Mr. Brooks was comfortable with this plan. Thank you again for allowing me to participate in Mr. Brooks's care. I shall continue to keep you advised of his progress. Plan Of Treatment Future Test Test Name Order Date COLONOSCOPY 07/16/2013 COLONOSCOPY 11/29/2018 COLONOSCOPY 05/16/2024 Insurance Providers Payer Name Payer Address Payer Phone Subscriber Number Group Number Insured Name Patient Relationship to Insured Coverage Start Date Coverage End Date MEDICARE OF [place] [address] JANAY NAVARRO [address] [phone] [id number] TODDJUAN LUIS Self - patient is the insured [facility] [address] [place], [place] [id number] [phone] [id number] JUAN LUIS BROOKS Self - patient is the insured Medical (General) History Medical History History ICD Code Colonoscopy in 2007, 2001,19 98--all negative except for a small tubular adenoma removed in 1997--he does have some mild diverticulosis and small internal hemorrhoids Hyperlipidemia Asthma Arthritis Acne rosacea Denies GA,DM,CVA,renal disease HTN Colonoscopy 08/2013-small tubular adenom a removed Hypothyroidism Broken left femoral head Colonoscopy in 2018 with a small tubular adenoma removed Sees Dr. Quiñones-had an ETT 2023 with some changes and scheduled for a cardiac CT at [facility] 05/2024 Kidney stone Surgical History Surgery Date(Month/Year) tonsillectomy and adenoidectomy finger amputation-tip of the left index finger
--- OUTSIDE RECORDS SUMMARY | 2024-12-30 09:20 | XMS_ITS | Clinical Summary ---
Author Organization 299 [facility] Address [address] [place] [address] Phone Care Team Providers Care Insole Toe Snipping Machine Operator Name Role Phone Rebecca Deal MD Primary Care Provider [phone] Encounters Date Type Department Care Team Description 12/23/2024 Lab Requisition [facility] - Main Lab [address] [facility] [place] [address] Caitlin Godoy NP Nodular prostate with lower urinary tract symptoms from Last 3 Months Social History Tobacco Use Types Packs/Day Years Used Date Smoking Tobacco: Never Assessed Sex and Gender Information Value Date Recorded Sex Assigned at Not on file Legal Sex Male 10:44 AM EST Gender Identity Not on file Sexual Orientation Not on file Plan of Treatment Health Maintenance Due Date Last Done Comments DTaP,Tdap,and Td Vaccines (1 - Tdap) 01/28/1968 Pneumococcal Vaccine: 50+ Ye ars (1 of 1 - PCV) 1999 Zoster Vaccines (1 of 2) 1999 Abdominal Aortic Aneurysm (A AA) Screen 08/16/2022 Cholesterol Screening (Lipid Panel) 08/16/2022 Colorectal Cancer Screening: Colonoscopy 08/16/2022 Depression Screening 08/16/2022 Falls Risk Assessment 08/16/2022 Hepatitis C Screening 08/16/2022 Medicare Annual Wellness Visit 08/16/2022 Social Influencers of Health Screening 08/16/2022 RSV Immunization Adult Patie nts (1 - 1-dose 75+ series) 01/28/2024 COVID-19 Vaccine ( - 2023-2 5 season) 2024 Influenza Vaccine (Season Ended) 2025 HIB Vaccines Aged Out No longer eligi ble based on patient's age to complete this topic HPV Vaccines Aged Out No longer eligi ble based on patient's age to complete this topic Hepatitis A Vaccines Aged Out No long er eligible based on patient's age to complete this topic Hepatitis B Vaccines Aged Out No long er eligible based on patient's age to complete this topic IPV Vaccines Aged Out No longer eligi ble based on patient's age to complete this topic MMR Vaccines Aged Out No longer eligi ble based on patient's age to complete this topic Meningococcal ACWY Vaccine Aged Out N o longer eligible based on patient's age to complete this topic Meningococcal B Vaccine Aged Out No l onger eligible based on patient's age to complete this topic RSV Immunization Patients Un ernesto 20 months Aged Out No longer eligible b ased on patient's age to complete this topic Varicella Vaccines Aged Out No longer eligible based on patient's age to complete this topic Procedures Procedure Name Priority Date/Time Associated Diagnosis Comments PROSTATE SPECIFIC ANTIGEN DIAGNOSTIC Routine 12/23/2024 9:21 AM EDT 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 Results obtained with different assay methods or kits cannot be used interchangeably. Results cannot be interpreted as absolute evidence of the presence or absence of malignant disease. us Caitlin Godoy NP LAB BLOOD ORDERABLES Tali laureano Result [facility] [address] [place] [address], from Last 3 Months Insurance MEDICARE [facility] Care Teams Insole Toe Snipping Machine Operator Relationship Specialty Start Date End Date Rebecca Deal MD [address] [place] [address] PCP - General Internal Medicine 12/23/24
[2024-12-30 10:04] LABS: Parathyroid Hormone Intact 58.8 pg/mL (8.7-77.1)
[2024-12-30 10:12] LABS: Alanine Aminotransferase 39 U/L (0-40); Albumin Level 4.5 g/dL (3.5-5.0); Alkaline Phosphatase 49 U/L (39-117); Anion Gap 10 (12-20); Aspartate Amino Transferase 26 U/L (5-37); Bilirubin Total 0.7 mg/dL (0.0-1.0); Blood Urea Nitrogen 15 mg/dL (9-16); Calcium 10.4 mg/dL (8.4-10.2); Carbon Dioxide 26 mmol/L (22-29); Chloride 109 mmol/L (96-108); Cholesterol 137 mg/dL (<200); Estimated Glomerular Filt Rate > 60; Glucose Fasting 129 mg/dL (60-99); HDL Cholesterol 33 mg/dL (>40); LDL Cholesterol Calculated 77 mg/dL (<100); Phosphorus 2.4 mg/dL (2.7-4.5); Potassium 4.3 mmol/L (3.3-5.1); Sodium 141 mmol/L (135-145); Total Protein 7.3 g/dL (6.5-8.0); Triglycerides 136 mg/dL (<150)
[2024-12-30 10:19] LABS: Thyroid Stimulating Hormone 2.37 uIU/mL (0.32-4.0); Vitamin D 25-OH Total 44.6 ng/mL (>30)
[2024-12-31 14:48] LABS: Calcium, Ionized 5.6 mg/dL (4.7-5.5)
== END 2024-12-30 08:43 | disposition home or self-care (01) ==
LOC: HO.LAB 08:42
PROVIDERS: PCP Internal Medicine; Visit Provider Internal Medicine
DX: E03.9 Hypothyroidism, unspecified (principal); E83.52 Hypercalcemia; R73.02 Impaired glucose tolerance (oral); E55.9 Vitamin D deficiency, unspecified; E78.5 Hyperlipidemia, unspecified
CPT/HCPCS: 36415; 80053; 80061; 82306; 82330; 83970; 84100; 84443

== ENCOUNTER → 2025-01-01 14:43 | Outpatient (REF) | payer MEDICARE, BC, SELFPAY ==
--- NOTE | 2025-01-01 14:46 | CA_ITS ---
Transthoracic Echocardiogram Patient (Last, First, Middle): Chris Lynch E Gender: Male Date of : 1950 Age: 74 Procedure Date: 01/01/2025 Procedure Type: Transthoracic Echocardiogram Location: OP Height: 180.34 cm Weight: 92.99 kg BSA: 2.13 m2 Heart Rate: 56 bpm BP: 127 / 68 mmHg Barrel Drainer: SB/RC Referring MD: Andrew Quiñones MD Account Executive Healthcare: Andrew Quiñones MD Symptoms: I25.10 - Atherosclerotic heart disease of [place] coronary artery without... Study Quality: Fair ECG Rhythm: Bradycardia Conclusions: - 1. Technically limited study despite use of contrast agent 2. Cardiac valvular Dopplers within normal limits 3. Mildly dilated ascending aorta at 3.8 cm Findings Procedure Information Contrast agent, definity, is being given per protocol without apparent complications. The quality of the study was technically difficult. The study quality is limited by lung artifact. Left Ventricle Normal left ventricular size, thickness, and systolic function. The visually estimated ejection fraction is between 55-60%. Spectral Doppler is indicative of an impaired relaxation filling pattern. E/E prime ratio is between 8 and 15 consistent with indeterminate filling pressures. Right Ventricle The right ventricle was not well visualized. Atria The left atrium was not well visualized. Interatrial shunt cannot be excluded. The right atrium was not well visualized. Aortic Valve The aortic valve structure and function is likely normal. There is no aortic valve stenosis. There is no aortic valve regurgitation. Mitral Valve The mitral valve was not well visualized. There is no mitral valve regurgitation. There is no mitral valve stenosis. Pulmonic Valve The pulmonic valve was not well visualized. Tricuspid Valve The tricuspid valve was not well visualized. Tricuspid regurgitation envelope is inadequate for calculation of right ventricular systolic pressure. Normal right atrial pressure. Great Vessels The aorta was not well visualized. The pulmonary artery was not well visualized. There is mild dilatation of the ascending aorta measuring 3.80 cm. Venous The inferior vena cava is normal in size. Pericardium/Pleural The pericardium was not well visualized. Prior Study Comparison No significant change compared to prior study dated: 05/03/2024. Measurements 2D Linear Measurements IVSd: 1.14 0.6-0.9/0.6-1.0 cm LVIDd: 4.82 3.9-5.3/4.2-5.9 cm LVIDd Index: 2.26 2.4-3.2/2.2-3.1 cm/m2 LVIDs: 3.64 2.0-3.6 cm LVPWd: 1.15 0.7-1.1 cm LA Diam: 4.30 2.7-3.8/3.0-4.0 cm LAIDs Index: 2.02 1.5-2.3 cm/m2 LV Mass: 257.34 67-162/88-224 g LV Mass Index: 120.82 43-95/49-115 g/m2 LVOT Diam: 2.20 3.0+(-)1.3 cm 2D Systolic Function EF 4C: 58.90 >55% EF 2C: 57.40 >55% EF BiP: 56.70 >55% Mitral Valve MV Pk E: 0.82 MV PK A: 0.73 MV Decel Time: 216.00 E/A: 1.10 E'Lateral: 7.07 E'Medial: 7.94 E/E' Med: 10.40 E/E' Lat: 11.60 PHT: 63.00 MVA PHT: 3.49 Decel Ector: 3.81 Aortic Valve AoV Pk Misael: 0.96 AoV Pk Grad: 4.00 CARMENZA: 3.57 LVOT LVOT Pk Misael: 0.99 LVOT Mn Misael: 0.61 LVOT VTI: 0.18 LVOT Pk Grad: 4.00 LVOT Mn Grad: 2.00 LVOT Diam: 2.20 LVOT Area: 3.80 Diastolic Function MV Pk E: 0.82 MV Pk A: 0.73 E/A: 1.10 E'Medial: 7.94 E/E' Med: 10.40 E' Laterial: 7.07 E/E' Lat: 11.60 Right Ventricle TAPSE (mm): 11.20 TVS' Misael: 8.80 Tricuspid Valve RA Press: 8.00 Great Vessels Aorta Sinus of Valsalva: 4.40 2.0-3.5 cm Ao Asc: 3.80 2.1-3.4 cm Pulmonary Veins Pulm Vein S/D 1.00 Pulmonary Valve PV Pk Misael: 0.66 Peak PV Grad: 2.00 Updated in Other Vendor System with Status of Final Andrew Quiñones MD electronically signed on 01/01/2025 4:17:34 PM with status of Final
--- OUTSIDE RECORDS SUMMARY | 2025-01-01 17:28 | XMS_ITS ---
Author Organization [facility] Address [address] [place] [address] Care Team Providers Care Meter Supervisor Name Role Phone Rebecca Garcia Primary Care Provider Unavailab Juan Luis Coelho Unavailable [phone] REASON FOR VISIT screening, hx polyps Encounters Encounter Location Date Provider Diagnosis [facility] [place] [address] [place] [phone] 08/12/2024 Juan Luis Aguila Plan Of Treatment No Information Progress Notes * JUAN LUIS BROOKS EDOB: [birth year] (74 yo M)Acc No.[id number]:08/12/2024 COLON WITH MAC Patient:?JUAN LUIS BROOKS Provider:?Juan Luis Aguila MD :1950???Age:74 Y???Sex:Male Danial e:08/12/2024 Address:[address] [place], [place] [phone] Pcp:Rebecca Deal Subjective: * Chief Complaints: * [...] MD Date:? 024 Generated for Printi ng/Faxing/eTransmitting on:?01/01/2025 12:14 PM EDT
--- OUTSIDE RECORDS SUMMARY | 2025-01-01 17:28 | XMS_ITS ---
Author Organization [facility] Address [address] [place] [address] Care Team Providers Care Dictaphone Transcriber Name Role Phone Rebecca Garcia Primary Care Provider UnavailJuan Luis Reyes Unavailable [phone] Allergies No Known Allergies REASON FOR VISIT [...] Active Azelaic Acid 15 % 1 application Brewery Pumper ally Twice a day Active Aspir-81 81mg [...] 05/16/2024 Encounters Encounter Location Date Provider Diagnosis [facility] [address] [place] [address] 05/16/2024 Juan Luis Aguila History of adenomato [...] year and shortly before he goes to [place]. However, I did advise him that we will need a clearance from his renal nurse, Dr. Quiñones, in regard to his upcoming [...] year and shortly before he goes to [place]. However, I did advise him that we will need a clearance from his renal nurse, Dr. Quiñones, in regard to his upcoming [...] year and shortly before he goes to [place]. However, I did advise him that we will need a clearance from his renal nurse, Dr. Quiñones, in regard to his upcoming [...] prn, Reason: Progress Notes * JUAN LUIS BROOSK EDOB: [birth year] (74 yo M)Acc No.[id number]:05/16/2024 Progress Notes Patient:?JUAN LUIS BROOKS Provider:?Juan Luis Aguila MD :1950???Age:74 Y???Sex:Male Danial e:05/16/2024 Address:[address] [place] [address], [id number] Pcp:Rebecca Deal Subjective: * Chief Complaints: * [...] CT of his heart in May at [facility]. He says there are no current plans for cardiac catheterization. ?He also advises me that he goes to [place] from early August through November. * ROS:?General/Constitutional:?Change [...] year and shortly before he goes to [place]. However, I did advise him that we will need a clearance from his renal nurse, Dr. Quiñones, in regard to his upcoming [...] Procedure Codes:?3017F COLOR ECTAL CA SCREEN DOC [id number] TOBACCO NON-[id number] BP SCR NOT PRFRM REC REASON NOS * Preventive Medicine:? ??Counseling:?Care goal follow-up plan:?Above Normal BMI Follow-up?Giving encouragement to exercise,?BMI management provided?Yes.? ??Screenings:?Fall Risk Screening?Fall Risk Assessment:?No falls in the past year.? * Follow Up:?prn * * Sign off status: Completed true * Provider:?Juan Luis Aguila MD Date:? 024 Generated for Isabelle mckinney/Ludivina/Katieitting on:?01/01/2025 12:14 PM EDT History and Physical Notes * [...] CT of his heart in May at [facility]. He says there are no current plans for cardiac catheterization. He also advises me that he goes to [place] from early August through November. Examination Category [...]
--- OUTSIDE RECORDS SUMMARY | 2025-01-01 17:28 | XMS_ITS | Encounter Summary ---
Author Organization [employer] [facility] Address [address] [place] [address] Care Team Providers Care Verify Rep Name Role Phone Rebecca Deal MD Primary Care Provider [phone] Encounter Details Date Type Department Care Team (Late st Contact Info) Description 12/23/2024 Lab Requisition [facility] - Main Lab [address] [facility] [place] [address] Caitlin Godoy NP [address] [facility] [address] [place] [address] Nodular prostate with lower urinary tract symptoms [...] LAB CHEMISTRY METHOD 12/23/2024 1:30 PM EDT [facility] Blood Venous blood specimen / Unknown 12/23/2024 9:21 AM EDT 12/23/2024 12:49 PM EDT Narrative [facility] - 12/23/2024 1:30 PM EDT The Siemens Advia [place] Direct Autoaur Chemiluminescent Immunoassay is used. Results obtained with different assay methods or kits cannot be used interchangeably. Results cannot be interpreted as absolute evidence of the presence or absence of malignant disease. us Caitlin Godoy EQUIPMENT MAN LAB BLOOD ORDERABLES Tali laureano Result [facility] [address] [place] [address], documented in this encounter Visit Diagnoses Diagnosis Nodular prostate with lower urinary tract symptoms documented in this encounter Care Teams Verify Rep Relationship Specialty Start Date End Date Rebecca Deal MD [address] [place] [address] PCP - General Internal Medicine 12/23/24 documented as of this encounter
--- OUTSIDE RECORDS SUMMARY | 2025-01-01 17:29 | XMS_ITS | Patient Health Record ---
Author Organization [facility] Address [address] [place] [address] Care Team Providers Care Fire Suppression Captain Name Role Phone Rebecca Garcia Primary Care Provider Unavailab Juan Luis Coelho Unavailable [phone] Allergies No Known Allergies Results Component Value Reference Range Notes Pathology Reviewed date:12/31/2024 12:20:55 AM Interpretation: Performing Lab:[facility], [address] [place] [address] Notes/Report: Name: Juan Luis Brooks Age/Sex: 74/M : 1950 Unit#: [id number] Attend Dr: Juan Luis Aguila MD Re12/27/24 Status : [facility] Location: [facility] Disch: SPEC : [id number] RECD : 12/27/24 STATUS: TOYA TOMLIN NUM: [id number] MARYANN: 12/27/[address] [facility] [address]: Juan Luis Aguila MD ENTERED: 12/27/24- 18 SP TYPE: Surgical OTHR DR: Rebecca Garcia MD ORDERED: HE Stain/3, Gross Micro L4 Diagnosis Colon, rectal polyp: Polypoid colonic mucosa with prominent lymphoid aggregate; no adenomatous dysplasia seen. Clinical History Pre-Op Dx: Screening Post-Op Dx: Polyp, diverticulosis, hemorrhoids Microscopic Description Multiple microscopic sections reviewed. Material Received Rectal polyp Gross Description Received in formalin labeled ?rectal polyp? are 2 fragments of massey-white soft tissue measuring 0.1 and 0. 2 cm in greatest dimension which are wrapped in lens paper and entirely submitted for micros copic examination, 2 pieces in cassette A. ([facility]) Copies To: Rebecca Garcia MD [facility] Primary Care,[address] [place] [address] Juan Luis Aguila MD [facility] [address] [place] [address] Signed (si gnature on file) Denisse Denton 12/30/24 1514 END OF REPORT Reason For Referral No Information Medications Medication [...] Active Azelaic Acid 15 % 1 application Building Analyst/Supervisor ally Twice a day Active Aspir-81 81mg [...] Problem Status W/U Status Risk Notes Problem 275526110 Encounter for screening for malignant neoplasm of colon (Z12.11) Active confirmed Problem 606344947 History of adenomatous polyp of colon (Z86.010) Active confirmed Problem 486532525855087 Preprocedural examination (Z01.818) Active confirmed Problem Long-term current use of antiplatelet drug (386472989393942) Long-term use of aspirin therapy (Z79.82) Active confirmed Vital Signs Temperature 97.5 degrees Fahrenheit 05/16/2024 Blood pressure diastolic 00 mm Hg 05/16/2024 Height 71 in 05/16/2024 Blood pressure systolic 000 mm Hg 05/16/2024 Weight 209 lb 4 oz lbs 05/16/2024 BMI 29.18 kg/m2 05/16/2024 Encounters Encounter Location Date Provider Diagnosis [facility] Outpatient [address] [place], [place] [phone] 12/27/2024 Juan Luis Aguila [facility] [address] [place] [address] 05/16/2024 Juan Luis Aguila History of adenomatous [...] year and shortly before he goes to [place]. However, I did advise him that we will need a clearance from his pick up attendant, Dr. Quiñones, in regard to his upcoming [...] year and shortly before he goes to [place]. However, I did advise him that we will need a clearance from his pick up attendant, Dr. Quiñones, in regard to his upcoming [...] year and shortly before he goes to [place]. However, I did advise him that we will need a clearance from his pick up attendant, Dr. Quiñones, in regard to his upcoming [...] Date MEDICARE OF [place] [address] [place] [address] [phone] [id number] TODDJUAN LUIS Self - patient is the insured [facility] [address] [place], [place] [id number] [phone] [id number] JUAN LUIS BROOKS Self - patient is the insured Medical (General) History Medical History History ICD Code Colonoscopy in 2007, 2001,19 98--all negative except for a small tubular adenoma removed in 1997--he does have some mild diverticulosis and small internal hemorrhoids Hyperlipidemia Asthma Arthritis Acne rosacea Denies ID,DM,CVA,renal disease HTN Colonoscopy 08/2013-small tubular adenom a removed Hypothyroidism Broken left femoral head Colonoscopy in 2018 with a small tubular adenoma removed Sees Dr. 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
--- OUTSIDE RECORDS SUMMARY | 2025-01-01 17:29 | XMS_ITS | Clinical Summary ---
Author Organization 299 [facility] Address [address] [place] [address] Phone Care Team Providers Care Setter Up Name Role Phone Rebecca Deal MD Primary Care Provider [phone] Encounters Date Type Department Care Team Description 12/23/2024 Lab Requisition [facility] - Main Lab [address] [facility] [place] [address] Caitlin Godoy NP Nodular prostate [...] NP LAB BLOOD ORDERABLES Tali laureano Result [facility] [address] [place] [address], from Last 3 Months Insurance MEDICARE [facility] Care Teams Setter Up Relationship Specialty Start Date End Date Rebecca Deal MD [address] [place] [address] PCP - General Internal Medicine 12/23/24
--- OUTSIDE RECORDS SUMMARY | 2025-01-01 17:29 | XMS_ITS ---
Author Organization [facility] Address [address] [place] [address] Care Team Providers Care Public Health Teacher Name Role Phone Rebecca Garcia Primary Care Provider Unavailab Juan Luis Coelho Unavailable [phone] REASON FOR VISIT screening Encounters Encounter Location Date Provider Diagnosis [facility] [place] [address] [place], [place] [phone] 12/27/2024 Juan Luis Aguila Plan Of Treatment No Information Progress Notes * JUAN LUIS BROOKS EDOB: [birth year] (74 yo M)Acc No.[id number]:12/27/2024 COLON WITH MAC Patient:?JUAN LUIS BROOKS Provider:?Juan Luis Aguila MD :1950???Age:74 Y???Sex:Male Danial e:12/27/2024 Address:[address] [place] [address] [facility] Pcp:Rebecca Deal Subjective: * Chief Complaints: * ???1. Screening. * Medical History:? Objective: * Vitals:? Assessment: Plan: * Treatment: * * The named appointment provid er may or may not be the originator of this progress note, and it is not deemed complete until electronically signed by the appointment provider. Sign off status: Pending * Provider:?Juan Luis Aguila MD Date:? 025 Generated for Printi ng/Faxing/eTransmitting on:?01/01/2025 12:14 PM EDT
== END ==
LOC: HO.CARD 14:43
PROVIDERS: PCP Internal Medicine; Visit Provider Internal Medicine Cardiovascular Disease
DX: I25.10 Atherosclerotic heart disease of native coronary artery without angina pectoris (principal)
CPT/HCPCS: 93306; Q9957

== ENCOUNTER → 2025-01-01 14:46 | Outpatient (BNV) | payer MEDICARE, BC, SELFPAY | PROVIDERS: PCP Internal Medicine; Visit Provider Internal Medicine Cardiovascular Disease | DX: I36.1 Nonrheumatic tricuspid (valve) insufficiency (principal) | CPT/HCPCS: 93306 ==

== ENCOUNTER 2025-01-06 08:41 | Outpatient (AMB) | payer MEDICARE, BC, SELFPAY ==
--- NOTE | 2025-01-06 08:50 | A.OFFPC_ITS ---
Intake Visit Reasons: SAWV Allergies mollusks Adverse Reaction (Intermediate, Verified 05/28/24 09:30) vomitting Tobacco use date assessed: 05/13/24 Dental Screening Dental Screen Date: 05/13/24 [facility] Medical History Broken leg HTN (hypertension) Acne rosacea Arthritis Asthma Hyperlipidemia CAD (coronary artery disease) Abnormal stress test Right bundle branch block Hypercalcemia Hematospermia Polyarthralgia Meniere disease Impaired glucose tolerance Erectile dysfunction Renal calculi Hypothyroidism BPH (benign prostatic hyperplasia) Pure hypercholesterolemia Essential hypertension Surgical History History of blepharoplasty History of colonoscopy History of surgery Amputation of left index finger Family History Father Prostate cancer Mother Stroke Social History Housing: House Are you a primary vision care associate to a significant other at home: No Do you presently have visiting nurse or other home services: No Alcohol intake: current Alcohol intake frequency: a few times a week Alcohol type: wine Patient Tobacco Use Status: Former Tobacco user Tobacco use type: Cigarette e-Cigarette/Vaping Use: Never Used Second Hand Smoke Exposure: No service: Yes Current occupational status: retired and disabled Cognitive needs: No Hearing needs: Yes Vision needs: Yes Questionnaire PHQ-9 Over the last 2 weeks, how often have you been bothered by any of the following problems? 1. Little interest or pleasure in doing things: not at all 2. Feeling down, depressed, or hopeless: not at all 3. Trouble falling or staying asleep, or sleeping too much: not at all 4. Feeling tired or having little energy: not at all 5. Poor appetite or overeating: not at all 6. Feeling bad about yourself - or that you are a failure or have let yourself or your family down: not at all 7. Trouble concentrating on things, such as reading the newspaper or watching television: not at all 8. Moving or speaking so slowly that other people could have noticed. Or the opposite - being so fidgety or restless that you have been moving around a lot more than usual: not at all 9. Thoughts that you would be better off or of hurting yourself in some way: not at all Total score: 0 Depression Screening Interpretation: Negative Depression Screening Done: Yes Source: Developed by Drs. Chris Us, Samantha Vaughan, Charanjit Garrido and colleagues, with an educational lili from [employer]. Thrive Questionnaire Date Thrive assessed: 01/06/25 I am a: Patient What is your living situation today?: I have a steady place to live Within the past 12 months, did the food you bought not last and you didn't have the money to get more?: Never true Within the past 12 months, did you worry whether your food would run out before you got money to buy more?: Never true Do you have trouble paying for medicines?: No Do you have trouble getting transportation to medical appointments?: No Do you have trouble paying your heating and electricity bill?: No Do you have trouble taking care of your child, family member or friend?: No Do you have trouble with day-to-day activities such as bathing, preparing meals, shopping, managing finances, etc.?: No Are you currently unemployed and looking for a job?: No Are you interested in more education?: No Please select the resources that you would like help with: None Currently or been in a relationship where the following occur: No concerns reported THRIVE Score: 0 AUDIT C Alcohol Use Questionnaire (AUDIT-C) 1. How often do you have a drink containing alcohol?: 4 or more times a week 2. How many drinks containing alcohol do you have on a typical day when you are drinking?: 3 or 4 3. How often do you have six or more drinks on one occasion?: Less than monthly Total Score: 6 ANNA-7 AMB Questionnaire ANNA-7 Date ANNA - 7 assessed: 01/06/25 Feeling nervous, anxious, or on edge: 0 = Not at all Not being able to stop or control worryin = Not at all Worrying too much about different things: 0 = Not at all Trouble relaxin = Not at all Being so restless that it is hard to sit still: 0 = Not at all Becoming easily annoyed or irritable: 0 = Not at all Feeling afraid as if something awful might happen: 0 = Not at all Total ANNA-7 score (0-4 normal; 5-9 mild; 10-14 moderate; 15-21 severe): 0 Source: Developed by Drs. Chris Us, Samantha Vaughan, Charanjit Garrido and colleagues, with an educational lili from [employer]. Physical exam (Primary Care) Tobacco/Smoking Status: Tobacco use Status Tobacco use date assessed 05/13/24 05/13/24 14:10 Patient Tobacco Use Status Former Tobacco user 12/27/24 09:02 Tobacco use type Cigarette 05/13/24 14:10 e-Cigarette/Vaping Use Never Used 05/13/24 14:10 Depression Screening Interpretation: Negative Thrive Assessment: Date of Thrive Assessment Date Thrive assessed 05/13/24 05/13/24 14:10 Currently or been in a relationship where the following occur: No concerns reported Coding
[2025-01-06 08:54] VITALS: BP 112/78; BMI 29.0
--- NOTE | 2025-01-06 08:56 | A.OFFVIS_ITS ---
Intake Vital Signs 01/06/25 08:54 Height 5 ft 11 in Weight 208 lb BMI 29.0 BP 112/78 Blood Pressure Location Lt brachial Position Sitting Intake Visit Reasons: SAWV Intake Note: Patient here for a subsequent annual wellness visit Auto Service Representative Required: No Accompanied by: Self / Same As Patient Allergies mollusks Adverse Reaction (Intermediate, Verified 01/06/25 09:13) vomitting Medication List - Last Reconciled 01/06/25 by Rebecca Deal MD albuterol sulfate 90 mcg/actuation 2 inhalations inhalation Q4-6H PRN aspirin (Ecotrin Low Strength) 81 mg PO DAILY azelaic acid 15% 1 appl topical BID cetirizine (All Day Allergy (cetirizine)) 10 mg PO BID PRN 90 days fluticasone propionate 50 mcg/actuation 1 spray intranasal DAILY 30 days ibuprofen 800 mg PO Q8H PRN 90 days levothyroxine 88 mcg PO DAILY 90 days losartan 100 mg PO DAILY 90 days minocycline 100 mg PO BID rosuvastatin 40 mg PO DAILY 90 days tamsulosin 0.4 mg PO DAILY triamcinolone acetonide 0.1% 1 appl topical BID HPI HPI Comments History of Present Illness Details The patient is a 74-year-old male presenting for his Medicare annual wellness exam. He has been experiencing persistent but managed hypercalcemia, currently maintaining ionized and total levels slightly above normal limits. This concern has been previously reviewed by Dr. Ferrer, with assurance it poses no immediate risk. Though the condition persists, present management remains conservative. Phosphate levels exhibit a declining trend, now measuring at 2.4 mg/dL. Furthermore, glucose monitoring shows a progressive trend towards diabetic levels, as he currently stands with impaired fasting glucose and increased A1c levels. The condition is routinely evaluated, with the most recent A1c of 6.6% indicating glucose intolerance without immediate pharmaceutical intervention. His hypertension and hyperlipidemia remain controlled clinically well with losa rtan and rosuvastatin, respectively. History of a surgical procedure for the left index finger amputation is noted, with no complications reported. Given these findings and historical data, management of these chronic conditions emphasizes regular monitoring and preventive care strategies. - Pneumonia vaccine administered and up to date. - Tetanus vaccine up to date. - Comprehensive blood work conducted. - Regular monitoring of glucose levels r ecommended. - Re-evaluation of phosphate levels in t wo weeks. - Follow-up laboratory studies for A1c a nd glucose in six months. - Colonoscopy normal this month. [facility] Medical History Broken leg HTN (hypertension) Acne rosacea Arthritis Asthma Hyperlipidemia CAD (coronary artery disease) Abnormal stress test Right bundle branch block Hypercalcemia Hematospermia Polyarthralgia Meniere disease Impaired glucose tolerance Erectile dysfunction Renal calculi Hypothyroidism BPH (benign prostatic hyperplasia) Pure hypercholesterolemia Essential hypertension Surgical History History of blepharoplasty History of colonoscopy History of surgery Amputation of left index finger Family History Father Prostate cancer Mother Stroke Social History Housing: House Are you a primary resident care aid to a significant other at home: No Do you presently have visiting nurse or other home services: No Alcohol intake: current Alcohol intake frequency: a few times a week Alcohol type: wine Patient Tobacco Use Status: Former Tobacco user Tobacco use type: Cigarette e-Cigarette/Vaping Use: Never Used Second Hand Smoke Exposure: No service: Yes Current occupational status: retired and disabled Cognitive needs: No Hearing needs: Yes Vision needs: Yes Questionnaire Medicare Wellness Checkup [age] What gender do you identify with?: male During the past 4 weeks, how much have you been bothered by emotional problems such as feeling anxious, depressed, irritable, sad or downhearted, and blue?: slightly During the past 4 weeks, has your physical & emotional health limited your social activities with family, friends, neighbors, or groups?: not at all During the past 4 weeks, how much bodily pain have you generally had?: mild pain During the past 4 weeks, was someone available to help you if you needed & wanted help?: yes, as much as I wanted During the past 4 weeks, what was the hardest physical activity you could do for at least 2 minutes?: very heavy Can you get to places out of walking distance without help? (For eg., can you travel alone on buses, taxis or drive your car?): Yes Can you go shopping for groceries or clothes without someone's help?: Yes Can you prepare your own meals?: Yes Can you do your housework without help?: Yes Because of any health problems, do you need the help of another person with your personal care needs such as eating, bathing, dressing or getting around the house?: No Can you handle your own money without help?: Yes During the past 4 weeks, how would you rate your health in general?: very good During the past 4 weeks how have things been going for you?: pretty well Are you having difficulties driving your car?: no Do you always fasten your seat belt when you are in a car?: yes, usually During past 4 weeks, have you been bothered by the following: never: Trouble eating well?, seldom: Sexual problems?, Teeth or denture problems?, Problems using the telephone? and Tiredness or fatigue? and sometimes: Falling or dizzy when standing up Have you fallen 2 or more times in the past year?: No Are you afraid of falling?: Yes Are you a smoker?: no During the past 4 weeks, how many drinks of wine, beer, or other alcoholic beverages did you have?: 2-5 drinks per week Do you exercise for about 20 minutes 3 or more times a week?: yes, most of the time Have you been given information to help with the following?: yes: Hazards in your house that might hurt you? and yes: Keeping track of your medications? How often do you have trouble taking medicines the way you have been told to take them?: I always take medicine as prescribed How confident are you that you can control & manage most of your health problems?: very confident What is your race?: White Mini Mental State Exam (MMSE) Orientation What is the (year) (season) (date) (day) (month)?: year, season, date, day and month Where are we (state) (county) (town or city) (hospital) (floor)?: state, county, town or city, hospital/clinic and floor Registration Name of 3 unrelated objects clearly and slowly, then ask patient to repeat all 3 of them. (1st repeat determines score. Make sure they can repeat all three): object 1, object 2 and object 3 Attention & Calculation (CHOOSE ONE) Spell WORLD backwards (DLROW): 5 letters Recall Ask patient to repeat the 3 items from question #3.: object 1, object 2 and object 3 Language Show patient a wristwatch & ask what it is. Repeat for pencil.: watch and pencil Ask the patient to repeat the phrase 'No ifs, ands, or buts' after you.: correct Ask the patient to 'take a piece of paper with their right hand' 'fold paper in half' 'place paper on floor': take paper in right hand, fold paper in half and place paper on floor Print the sentence 'CLOSE YOUR EYES' on a piece. If patient actually closes eyes then score.: followed written direction Give patient a blank piece of paper & ask to write a sentence. Score if it contains a noun & verb.: sentence contains subject and verb Ask patient to copy figure of intersecting pentagons exactly. Score if all 10 angles & 2 intersects are included.: all 10 angles present & 2 are intersected Score Score: 30 Activity of Daily Living Bathing - sponge bath, tub bath or shower: receives no assistance (gets in/out by self, if usual bathing means Dressing - getting clothes from closets & drawers, including inner/outer garments & fasteners.: gets clothes & gets completely dressed without help Toileting - going to the 'toilet room' for urine/bowel elimination & cleaning self/arranging clothes: goes to toilet room, cleans self, arranges clothes without help Transfer: moves in & out of bed and chair without help (may use support object) Continence: controls urination/bowel movements completely by self Feeding: feeds self without help Total Score: 0 Information obtained from: patient Using telephone: independent Traveling: independent Shopping: independent Preparing meals: independent Housework: independent Taking medicine: independent Managing money: independent PHQ-9 Over the last 2 weeks, how often have you been bothered by any of the following problems? 1. Little interest or pleasure in doing things: not at all 2. Feeling down, depressed, or hopeless: several days 3. Trouble falling or staying asleep, or sleeping too much: not at all 4. Feeling tired or having little energy: not at all 5. Poor appetite or overeating: not at all 6. Feeling bad about yourself - or that you are a failure or have let yourself or your family down: not at all 7. Trouble concentrating on things, such as reading the newspaper or watching television: not at all 8. Moving or speaking so slowly that other people could have noticed. Or the opposite - being so fidgety or restless that you have been moving around a lot more than usual: not at all 9. Thoughts that you would be better off or of hurting yourself in some way: not at all Total score: 1 Depression Screening Interpretation: Negative Depression Screening Done: Yes 26655 - PHQ-9 Billing: Yes Source: Developed by Drs. Chris Us, Samantha Vaughan, Charanjit Garrido and colleagues, with an educational lili from [employer]. Review of Systems Const All systems reviewed & are unremarkable except as noted in HPI and below Card Denies chest pain at rest, Denies chest pain with activity, Denies edema, Denies irregular heart rhythm, Denies claudication, Denies dyspnea, Denies dyspnea on exertion, Denies orthopnea, Denies paroxysmal nocturnal dyspnea and Denies slow heart rate Resp Denies cough, Denies dyspnea and Denies dyspnea on exertion GI Denies abdominal pain, Denies change in bowel habits, Denies excessive flatus, Denies nausea and Denies vomiting Neuro Denies lack of coordination Physical Exam Vital Signs: Last Vital Signs BP 112/78 01/06/25 08:54 BMI result Body Mass Index 29.0 Resp Effort & Inspection: normal respiratory effort Auscultation: clear to auscultation bilaterally Cardio Jugular venous distension: no JVD Rate: regular rate Rhythm: regular rhythm Heart sounds: S1 normal heart sound present and S2 normal heart sound present Neuro Romberg Test: Negative Extrem General: Yes full ROM Assessment & Plan Assessment & Plan (1) Encounter for Medicare annual wellness exam: Code(s): Z00.00 - Encounter for general adult medical examination without abnormal findi ngs Plan Monitoring of hypercalcemia will continue without new intervention, based on specialist reassurance. Phosphate correction includes short-term phosphate s upplementation and a repeat test in two weeks. Glucose and A1c levels necessitate close observation to evaluate for potential diabetes management in the future, with follow-up lab in six months. Current treatments for hypertension and hyperlipidemia remain effective, supporting ongoing stability. Patient was informed and verbally consented to the use of an ambient scribe for clinic note documentation during this visit. During the visit, I engaged in a comprehensive discussion regarding the patient's hypercalcemia and the absence of adverse actions needed, given previous assurances. We examined strategies for addressing the noted phosphate deficiency, prescribing phosphate supplements temporarily, and planning a follow-up test shortly. I addressed the glucose intolerance findings and em phasized consistent monitoring of blood sugar levels and an [id number] assessment in six months without crossing into diabetic diagnosis at present. I encouraged adherence to current hypertension and hyperlipidemia pharmacotherapy regimens, reassuring the patient of their efficacy. Discussions further emphasized updating vaccinations and ensuring proactive health maintenance is pursued vigilantly. Orders: Orders Phosphorus Today E83.39 - Other disorders of phosphorus metabolism Comprehensive Wallace. Panel Fast 6 Months R73.02 - Impaired glucose tolerance (oral) Thyroid Stimulating Hormone 6 Months E03.9 - Hypothyroidism, unspecified Medications: New potassium phosphate, monobasic 1,000 mg (2 x 500 mg) PO DAILY 2 days 4 tabs 0RF Patient Instructions: - Follow up with phosphate supplement intake as prescribed. - Monitor blood glucose levels regularly. - Return for follow-up labs in six months. - Continue medications: losartan, rosuvastatin, and other needed prescriptions on current regimen. - Contact physician if new symptoms arise or concern continues. Quality Reporting (2019) Depression/Bipolar (159/160/161/177) PHQ-9: Total score: 1 Coding Level of Care Code Medicare Subsequent (G0439) Est Pt Level 3 (88936) Diagnoses Encounter for Medicare annual wellness exam Z00.00 Additional Codes PHQ-9 - 39825 - PHQ-9 Billing: Yes ([id number]) Time Spent (min) 32 Advance Care Planning Advance Care Planning discussion: Declined forms
== END 2025-01-06 09:27 | disposition home or self-care (01) ==
LOC: HO.HMCH 08:42
PROVIDERS: PCP Internal Medicine; Visit Provider Internal Medicine
DX: Z00.00 Encounter for general adult medical examination without abnormal findings (principal); E83.52 Hypercalcemia

== ENCOUNTER → 2025-01-06 08:41 | Outpatient (BNVA) | payer MEDICARE, BC, SELFPAY | PROVIDERS: PCP Internal Medicine; Visit Provider Internal Medicine | DX: Z00.00 Encounter for general adult medical examination without abnormal findings (principal); I10 Essential (primary) hypertension; E78.00 Pure hypercholesterolemia, unspecified | CPT/HCPCS: 96127; 99212 ==

== ENCOUNTER 2025-01-22 09:19 | Outpatient (REF) | payer MEDICARE, BC, SELFPAY ==
[2025-01-22 09:59] LABS: Phosphorus 2.5 mg/dL (2.7-4.5)
--- OUTSIDE RECORDS SUMMARY | 2025-01-22 10:01 | XMS_ITS ---
Author Organization [facility] Address [address] [place] [id number] Care Team Providers Care Synchro Assembler Name Role Phone Rebecca Garcia Primary Care Provider Unavailab Juan Luis Coelho Unavailable [phone] REASON FOR VISIT screening, hx polyps Encounters Encounter Location Date Provider Diagnosis [facility] Outpatient [address] [place] [id number] 08/12/2024 Juan Luis Aguila Plan Of Treatment No Information Progress Notes * JUAN LUIS BROOKS EDOB: [birth year] (74 yo M)Acc No.[id number]:08/12/2024 COLON WITH MAC Patient:?JUAN LUIS BROOKS Provider:?Juan Luis Aguila MD :1950???Age:74 Y???Sex:Male Danial e:08/12/2024 Address:[address] [place], [place] [id number] Pcp:Rebecca Deal Subjective: * Chief Complaints: * [...] Aguila MD Date:? 024 Generated for Printi ng/Favirginiag/eTransmitting on:?01/22/2025 10:01 AM EDT
--- OUTSIDE RECORDS SUMMARY | 2025-01-22 10:01 | XMS_ITS | Encounter Summary ---
Author Organization [facility] Address [address] [place] [address] Care Team Providers Care Rounding Machine Tender Name Role Phone Rebecca Deal MD Primary Care Provider [phone] Encounter Details Date Type Department Care Team (Late st Contact Info) Description 12/23/2024 Lab Requisition [facility] [address] [facility] [place] [address] Caitlin Godoy NP [address] [facility] [address] [place] [address] Nodular prostate with lower urinary tract symptoms [...] LAB CHEMISTRY METHOD 12/23/2024 1:30 PM EDT [facility] Blood Venous blood specimen / Unknown 12/23/2024 9:21 AM EDT 12/23/2024 12:49 PM EDT Narrative [facility] - 12/23/2024 1:30 PM EDT The Siemens Advia Loco2aur Chemiluminescent Immunoassay is used. Results obtained with different assay methods or kits cannot be used interchangeably. Results cannot be interpreted as absolute evidence of the presence or absence of malignant disease. us Caitlin Godoy ACCOUNT ASSISTANT LAB BLOOD ORDERABLES Tali laureano Result [facility] [address] [place] [address], documented in this encounter Visit Diagnoses Diagnosis Nodular prostate with lower urinary tract symptoms documented in this encounter Care Teams Rounding Machine Tender Relationship Specialty Start Date End Date Rebecca Deal MD [address] [place] [address] PCP - General Internal Medicine 12/23/24 documented as of this encounter
--- OUTSIDE RECORDS SUMMARY | 2025-01-22 10:02 | XMS_ITS | Patient Health Record ---
Author Organization [facility] Address [address] [place] [address] Care Team Providers Care Policy Adviser Name Role Phone Rebecca Garcia Primary Care Provider Unavailab Juan Luis Coelho Unavailable [phone] Allergies No Known Allergies Results Component Value Reference Range Notes Pathology Reviewed date:12/31/2024 12:20:55 AM Interpretation: Performing Lab:[facility], [address] [place] [phone] Notes/Report: Name: Juan Luis Brooks Age/Sex: 74/M : 1950 Unit#: [id number] Attend Dr: Juan Luis Aguila MD Re12/27/24 Status : [facility] Location: [facility] Disch: SPEC : [id number] RECD : 12/27/24 STATUS: TOYA TOMLIN NUM: [id number] MARYANN: 12/27/[address] [facility] [address]: Juan Luis Aguila MD ENTERED: [...] copic examination, 2 pieces in cassette A. ([facility]) Copies To: Rebecca Garcia MD [facility] Primary Care,[address] [place] [address] Juan Luis Aguila MD [facility] [address] [place] [address] Signed (si gnature on file) Denisse Denton [...] Active Azelaic Acid 15 % 1 application Director Corporate Communications ally Twice a day Active Aspir-81 81mg [...] Problem Status W/U Status Risk Notes Problem 291009146 Encounter for screening for malignant neoplasm of colon (Z12.11) Active confirmed Problem 784491984 History of adenomatous polyp of colon (Z86.010) Active confirmed Problem [id number] Preprocedural examination (Z01.818) Active confirmed Problem Long-term use of aspirin therapy (Z79.82) Active confirmed Vital Signs Temperature 97.5 degrees Fahrenheit 05/16/2024 Blood pressure diastolic 00 mm Hg 05/16/2024 Height 71 in 05/16/2024 Blood pressure systolic 000 mm Hg 05/16/2024 Weight 209 lb 4 oz lbs 05/16/2024 BMI 29.18 kg/m2 05/16/2024 Encounters Encounter Location Date Provider Diagnosis [facility] [facility] Out[place] [address] [place], [place] [id number] 12/27/2024 Juan Luis Aguila Colon cancer screeni ng Z12.11 ; Personal history of colonic polyps Z86.0100 ; Rectal polyp K62.1 and Diverticulosis of large intestine without perforation or abscess without bleeding K57.30 [facility] [address] [place] [address] 05/16/2024 Juan Luis Aguila History of adenomato us polyp of colon Z86.010 ; Long-term use of aspirin therapy Z79.82 and Encounter for screening for malignant neoplasm of colon Z12.11 Assessments Encounter Date Diagnosis (ICD Code) Assessment Notes Treatment Notes Treatment Clinical Notes Section Notes 12/27/2024 Colon cancer screening (ICD-10 - Z12.11) 12/27/2024 Personal history of colonic polyps (ICD-10 - Z86.0100) 05/16/2024 History of adenomatous polyp of colon [...] year and shortly before he goes to [place]. However, I did advise him that we will need a clearance from his log buncher, Dr. Quiñones, in regard to his upcoming [...] year and shortly before he goes to [place]. However, I did advise him that we will need a clearance from his log buncher, Dr. Quiñones, in regard to his upcoming workup as well. Mr. Brooks was comfortable with this plan. Thank you again for allowing me to participate in Mr. Brooks's care. I shall continue to keep you advised of his progress. 12/27/2024 Rectal polyp (ICD-10 - K62.1) 05/16/2024 Encounter for screening for malignant neoplasm [...] year and shortly before he goes to [place]. However, I did advise him that we will need a clearance from his log buncher, Dr. Quiñones, in regard to his upcoming workup as well. Mr. Brooks was comfortable with this plan. Thank you again for allowing me to participate in Mr. Brooks's care. I shall continue to keep you advised of his progress. 12/27/2024 Diverticulosis of large intestine without perforation or abscess without bleeding (ICD-10 - K57.30) Plan Of Treatment Future Test Test Name Order Date COLONOSCOPY 07/16/2013 COLONOSCOPY 11/29/2018 COLONOSCOPY 05/16/2024 Insurance Providers Payer Name Payer Address Payer Phone Subscriber Number Group Number Insured Name Patient Relationship to Insured Coverage Start Date Coverage End Date MEDICARE OF [place] [address] [facility] [address] [id number] JUAN LUIS BROOKS Self - patient is the insured [facility] [address] [place], [place] [id number] [phone] [id number] JUAN LUIS BROOKS Self - patient is the insured Medical (General) History Medical History History ICD Code Colonoscopy in 2007, 2001, 98--all negative except for a small tubular adenoma removed in 1997--he does have some mild diverticulosis and small internal hemorrhoids Hyperlipidemia Asthma Arthritis Acne rosacea Denies PR,DM,CVA,renal disease HTN Colonoscopy 08/2013-small tubular adenom a removed Hypothyroidism Broken left femoral head Colonoscopy in 2019 with a small tubular adenoma removed Sees Dr. Quiñones-had an ETT 2023 with some changes and scheduled for a cardiac CT at [facility] 05/2024 Kidney stone Surgical History Surgery Date(Month/Year) tonsillectomy and adenoidectomy finger amputation-tip of the left index finger
--- OUTSIDE RECORDS SUMMARY | 2025-01-22 10:02 | XMS_ITS ---
Author Organization [facility] Address [address] [place] [address] Care Team Providers Care Cad Intern Name Role Phone Rebecca Garcia Primary Care Provider Unavailab Juan Luis Coelho Unavailable [phone] REASON FOR VISIT screening Encounters Encounter Location Date Provider Diagnosis [facility] [place] [address] [place], [place] [phone] 12/27/2024 Juan Luis Aguila Colon cancer scree [...] LUIS BROOKS EDOB: [birth year] (74 yo M)Acc No.[id number]:12/27/2024 COLON WITH MAC Patient:?JUAN LUIS BROOKS Provider:?Juan Luis Aguila MD :1950???Age:74 Y???Sex:Male Danial e:12/27/2024 Address:[address] [place], [place] Pcp:Rebecca Deal Subjective: * Chief Complaints: * ???1. Screening. * Medical History:? Objective: * Vitals:? Assessment: * Assessment: 1.?Colon cancer screening - Z12.11 (Primary)???2.?Personal history of colonic polyps - Z86.0100???3.?Rectal polyp - K62.1???4.?Diverticulosis of large intestine without perforation or abscess without bleeding - K57.30??? Plan: * Treatment: * Procedure Codes:?71147 COLON OSCOPY AND BIOPSY, Modifiers: PT , 0529F INTRVL 3+YRS PTS CLNSCP DOCD, 0528F RCMND FLW-UP 10 YRS DOCD, Modifiers: 1P * * The named appointment provid er may or may not be the originator of this progress note, and it is not deemed complete until electronically signed by the appointment provider. Sign off status: Pending * Provider:?Juan Luis Aguila MD Date:? 025 Generated for Isabelle mckinney/Ludivina/eTransmitting on:?01/22/2025 10:02 AM EDT
--- OUTSIDE RECORDS SUMMARY | 2025-01-22 10:02 | XMS_ITS | Clinical Summary ---
Author Organization [address] [facility] Address [address] [place] [address] Phone Care Team Providers Care Eclectic Doctor Name Role Phone Rebecca Deal MD Primary Care Provider [phone] Encounters Date Type Department Care Team Description 12/23/2024 Lab Requisition [facility] Lab [address] [facility] [place] [address] Caitlin Godoy NP Nodular prostate [...] LAB CHEMISTRY METHOD 12/23/2024 1:30 PM EDT [facility] Blood Venous blood specimen / Unknown 12/23/2024 9:21 AM EDT 12/23/2024 12:49 PM EDT Narrative [facility] - 12/23/2024 1:30 PM EDT The Siemens Advia Centaur Chemiluminescent Immunoassay is used. Results obtained with different assay methods or kits cannot be used interchangeably. Results cannot be interpreted as absolute evidence of the presence or absence of malignant disease. us Caitlin Godoy NP LAB BLOOD ORDERABLES Tali laureano Result [facility] [address] [place] [address], from Last 3 Months Insurance MEDICARE [facility] Care Teams Eclectic Doctor Relationship Specialty Start Date End Date Rebecca Deal MD [address] [place] [address] PCP - General Internal Medicine 12/23/24
--- OUTSIDE RECORDS SUMMARY | 2025-01-22 10:02 | XMS_ITS ---
Author Organization [facility] Address [address] [place] [address] Care Team Providers Care Supervisor Irrigation Name Role Phone Rebecca Garcia Primary Care Provider UnavailJuan Luis Reyes Unavailable [phone] Allergies No Known Allergies REASON FOR VISIT [...] Active Azelaic Acid 15 % 1 application Process Development Chemist ally Twice a day Active Aspir-81 81mg [...] 05/16/2024 Encounters Encounter Location Date Provider Diagnosis [facility] [address] [place] [address] 05/16/2024 Juan Luis Aguila History of adenomato [...] year and shortly before he goes to [place]. However, I did advise him that we will need a clearance from his property adjuster, Dr. Quiñones, in regard to his upcoming [...] year and shortly before he goes to [place]. However, I did advise him that we will need a clearance from his property adjuster, Dr. Quiñones, in regard to his upcoming [...] year and shortly before he goes to [place]. However, I did advise him that we will need a clearance from his property adjuster, Dr. Quiñones, in regard to his upcoming [...] LUIS BROOKS EDOB: [birth year] (74 yo M)Acc No.[id number]:05/16/2024 Progress Notes Patient:?JUAN LUIS BROOKS Provider:?Juan Luis Aguila MD :1950???Age:74 Y???Sex:Male Danial e:05/16/2024 Address:[address] [place] [address], [facility] Pcp:Rebecca Deal Subjective: * Chief Complaints: * [...] also advises me that he goes to [place] from early August through November. * ROS:?General/Constitutional:?Change [...] year and shortly before he goes to [place]. However, I did advise him that we will need a clearance from his property adjuster, Dr. Quiñones, in regard to his upcoming [...] Procedure Codes:?3017F COLOR ECTAL CA SCREEN DOC [id number] TOBACCO [id number] BP SCR NOT PRFRM REC REASON NOS * Preventive Medicine:? ??Counseling:?Care goal follow-up plan:?Above Normal BMI Follow-up?Giving encouragement to exercise,?BMI management provided?Yes.? ??Screenings:?Fall Risk Screening?Fall Risk Assessment:?No falls in the past year.? * Follow Up:?prn * * Sign off status: Completed true * Provider:?Juan Luis Aguila MD Date:? 024 Generated for Isabelle mckinney/Ludivina/Katieitting on:?01/22/2025 10:01 AM EDT History and Physical Notes * [...] also advises me that he goes to [place] from early August through November. Examination Category [...]
== END 2025-01-22 09:20 | disposition home or self-care (01) ==
LOC: HO.LAB 09:19
PROVIDERS: PCP Internal Medicine; Visit Provider Internal Medicine
DX: E83.39 Other disorders of phosphorus metabolism (principal)
CPT/HCPCS: 36415; 84100

== ENCOUNTER 2025-07-01 08:16 | Outpatient (AMB) | payer MEDICARE, BC, SELFPAY ==
--- OUTSIDE RECORDS SUMMARY | 2024-08-12 09:40 | XMS_ITS ---
Author Organization [facility] Address [address] [place] [phone] Care Team Providers Care Laborer Hoisting Name Role Phone Rebecca Garcia Primary Care Provider Unavailab Juan Luis Coelho Unavailable [phone] REASON FOR VISIT screening, hx polyps Encounters Encounter Location Date Provider Diagnosis [facility] Outpatient [address] [place] [id number] 08/12/2024 Juan Luis Aguila Plan Of Treatment No Information Progress Notes * JUAN LUIS BROOKS EDOB: [birth year] (75 yo M)Acc No.[id number]:08/12/2024 COLON WITH MAC Patient: Kameron CASTILLO JUAN LUIS Salazar Provider: Jojo Aguila MD :1950 A ge:74 Y S ex:Male Date:08/12/2024 Address:[address] [place], [place] [id number] Pcp:Rebecca Deal Subjective: * Chief Complaints: * [...] Date: 10/12/2023 Generated for Carolinai ng/Favirginiag/eTransmitting on: 08:23 AM EDT
--- OUTSIDE RECORDS SUMMARY | 2024-12-27 03:30 | XMS_ITS ---
Author Organization [facility] Address [address] [place] [address] Care Team Providers Care Clerical And Office Support Workers Name Role Phone Rebecca Garcia Primary Care Provider UnavailJuan Luis Reyes Unavailable [phone] REASON FOR VISIT screening Encounters Encounter Location Date Provider Diagnosis [facility] Outpatient [address] [place], [place] [phone] 12/27/2024 Juan Luis Aguila Colon cancer scree [...] LUIS BROOKS EDOB: [birth year] (75 yo M)Acc No.[id number]:12/27/2024 COLON WITH MAC Patient: JUAN LUIS VILLEGAS Provider: Jojo Aguila MD :1950 A ge:74 Y S ex:Male Date:12/27/2024 Address:[address] [place], [place] [address] Pcp:Rebecca Deal Subjective: * Chief Complaints: * [...] 12/27/2024 Generated for Isabelle mckinney/Ludivina/Katieitting on: 1 08:24 AM EDT
[2025-07-01 08:22] VITALS: BP 124/64; PULSE 68; BMI 29.6
--- NOTE | 2025-07-01 08:22 | MHC.OFFVIS ---
Vital Signs 07/01/25 08:22 Height 5 ft 11 in Weight 212 lb 8.41 oz BMI 29.6 BP 124/64 Blood Pressure Location Lt brachial Position Sitting Pulse 68 Pulse Source Monitor Intake Visit Reasons: 6 mth s/p echo/ lipids Intake Note: 6 Month / s/p Echo/ lipids Accompanied by: Self / Same As Patient Allergies mollusks Adverse Reaction (Intermediate, Verified 07/01/25 08:25) vomitting Medication List - Last Reconciled 07/01/25 by Andrew Quiñones MD albuterol sulfate 90 mcg/actuation 2 inhalations inhalation Q4-6H PRN aspirin (Ecotrin Low Strength) 81 mg PO DAILY azelaic acid 15% 1 appl topical BID cetirizine (All Day Allergy (cetirizine)) 10 mg PO BID PRN 90 days fluticasone propionate 50 mcg/actuation 1 spray intranasal DAILY 30 days ibuprofen 800 mg PO Q8H PRN 90 days levothyroxine 88 mcg PO DAILY 90 days losartan 100 mg PO DAILY 90 days rosuvastatin 20 mg PO DAILY tamsulosin 0.4 mg PO DAILY HPI Comments Details: Chris comes for follow-up. He has been doing well from cardiac perspective. He said he can walk 3 miles only thing that bothers in his right posterior thigh pain related to sciatica. Otherwise he is able to walk 3 miles without any symptoms of chest tightness. No shortness of breath. No prolonged palpitation irregular heartbeat. His last LDL was 77 mg/dL on 20 mg of rosuvastatin. No change in rosuvastatin has been made. He denies any lightheadedness, syncope. [facility] Medical History Broken leg HTN (hypertension) Acne rosacea Arthritis Asthma Hyperlipidemia CAD (coronary artery disease) Abnormal stress test Right bundle branch block Hypercalcemia Hematospermia Polyarthralgia Meniere disease Impaired glucose tolerance Erectile dysfunction Renal calculi Hypothyroidism BPH (benign prostatic hyperplasia) Pure hypercholesterolemia Essential hypertension Surgical History History of blepharoplasty History of colonoscopy History of surgery Amputation of left index finger Family History Father Prostate cancer Mother Stroke Social History Housing: House Are you a primary care management associate to a significant other at home: No Do you presently have visiting nurse or other home services: No Alcohol intake: current Alcohol intake frequency: a few times a week Alcohol type: wine Patient Tobacco Use Status: Former Tobacco user Tobacco use type: Cigarette e-Cigarette/Vaping Use: Never Used Second Hand Smoke Exposure: No service: Yes Current occupational status: retired and disabled Cognitive needs: No Hearing needs: Yes Vision needs: Yes Review of Systems Const Denies daytime sleepiness, Denies difficulty sleeping, Denies snoring, Denies stops breathing during sleep and Denies weakness Card Denies chest pain, Denies rapid heart rate, Denies irregular heart rhythm, Denies claudication, Denies leg edema, Denies lightheadedness, Denies palpitations, Denies dyspnea, Denies dyspnea on exertion, Denies orthopnea, Denies paroxysmal nocturnal dyspnea and Denies slow heart rate Resp Denies cough, Denies dyspnea, Denies dyspnea on exertion and Denies snoring GI Reports no additional complaints, Denies hematochezia, Denies change in stool character and Denies dyspepsia Musc Denies abnormal gait, Denies muscle weakness and Denies numbness Neuro Denies Abnormal speech present, Denies abnormal gait, Denies numbness and Denies weakness Endo Denies palpitations Physical Exam Vital Signs: Last Vital Signs Pulse 68 07/01/25 08:22 BP 124/64 07/01/25 08:22 BMI result Body Mass Index 29.6 Const General: cooperative, comfortable, no acute distress, well developed, alert, awake, Physically active and well groomed Nutritional Appearance: average body habitus and well nourished Orientation/consciousness: patient oriented x3 Limitations: no limitations HEENT Head: Yes normocephalic and Yes atraumatic Neck Neck: Yes trachea midline, Yes supple and Yes no JVD Resp Effort & Inspection: normal respiratory effort Auscultation: clear to auscultation bilaterally Cardio Jugular venous distension: no JVD Palpation: normal PMI Rate: regular rate Rhythm: regular rhythm Heart sounds: S1 normal heart sound present, S2 normal heart sound present, no click, no gallops, no murmurs and no rubs Bruits: no carotid bruits GI Auscultation: normal bowel sounds Skin General skin exam: no rashes or lesions noted Neuro General: patient oriented x3 and no focal motor deficits Speech: No Abnormal speech present Extrem General: Yes no clubbing, cyanosis or edema Psych Appearance: grossly normal Office Procedures EKG Details: EKG shows normal sinus rhythm with right bundle and left anterior fascicular block consistent with bifascicular block. 51926-[id number], Complete Assessment & Plan Assessment & Plan (1) CAD (coronary artery disease): Code(s): I25.10 - Atherosclerotic heart disease of [place] coronary artery without angina pectoris Category: Medical Plan: Diffuse three-vessel coronary artery disease without any symptoms of angina at current point time. No revascularization needed. Patient is advised to call me with any new symptoms that would suggestive of angina which requires invasive cardiac catheterization. Meanwhile I have advised him to continue aspirin therapy. Continue aggressive blood pressure control. He should be on high-intensity statin therapy with optimized LDL of less than 60 mg/dL. Advised to bump up his rosuvastatin to 40 mg daily and follow-up lipid panel in couple months. Patient's blood pressure is currently well optimized. Advised to monitor blood pressure at home maintain a log. Goal blood pressure less than 130/84. Advised to maintain activity level as tolerated. (2) Bifascicular block: Code(s): I45.2 - Bifascicular block Category: Medical Plan: Bifascicular block on EKGs without any new symptoms. At this point time no interventions required. Continue annual EKGs checks. Advised to call me with any new symptoms. Will follow up in the clinic in 1 year's time, sooner PRN. Thank you for allowing me to partake in his care Orders: Orders Lipid Panel 6 Months I25.10 - Atherosclerotic heart disease of [place] coronary artery without angina pectoris Medications: New rosuvastatin 40 mg PO DAILY 90 tabs 1RF Coding Level of Care Code Est Pt Level 4 (22216) Complex EM visit Add On G2211 Diagnoses CAD (coronary artery disease) I25.10 Bifascicular block I45.2 CPT Codes EKG - CPT: 46364-Ukrbmejplipycqqrz, Complete ([id number])
--- OUTSIDE RECORDS SUMMARY | 2025-07-01 08:24 | XMS_ITS | Encounter Summary ---
Author Organization [facility] Address [address] [place] [address] Care Team Providers Care Construction Pit Worker Name Role Phone Rebecca Deal MD Primary Care Provider [phone] Encounter Details Date Type Department Care Team (Late st Contact Info) Description 12/23/2024 Lab Requisition [facility] Lab [address] [facility] [place] [address] Caitlin Godoy NP [address] [facility] [address] [place] [address] Nodular prostate with lower urinary tract symptoms [...] LAB CHEMISTRY METHOD 12/23/2024 1:30 PM EDT [facility] Blood Venous blood specimen / Unknown 12/23/2024 9:21 AM EDT 12/23/2024 12:49 PM EDT Narrative [facility] - 12/23/2024 1:30 PM EDT The Siemens Advia WorldStoresaur Chemiluminescent Immunoassay is used. Results obtained with different assay methods or kits cannot be used interchangeably. Results cannot be interpreted as absolute evidence of the presence or absence of malignant disease. us Caitlin Godoy HEAVY EQUIPMENT SERVICE MANAGER LAB BLOOD ORDERABLES Tali laureano Result [facility] [address] [place] [address], documented in this encounter Visit Diagnoses Diagnosis Nodular prostate with lower urinary tract symptoms documented in this encounter Care Teams Construction Pit Worker Relationship Specialty Start Date End Date Rebecca Deal MD [address] [place] [address] PCP - General Internal Medicine 12/23/24 documented as of this encounter
--- OUTSIDE RECORDS SUMMARY | 2025-07-01 08:25 | XMS_ITS | Clinical Summary ---
Author Organization [facility] Address [address] [place] [address] Phone Care Team Providers Care Commercial Drafter Name Role Phone Rebecca Deal MD Primary Care Provider [phone] Social History Tobacco Use Types Packs/Day Years [...] 1999 Zoster Vaccines (1 of 2) 1999 Cholesterol Screening (Lipid Panel) 08/16/2022 Falls Risk Assessment 08/16/2022 Hepatitis C Screening 08/16/2022 Medicare Annual Wellness Visit 08/16/2022 Social Influencers of Health Screening 08/16/2022 RSV Immunization Adult Patie nts (1 - 1-dose 75+ series) 01/28/2024 Depression Screening 09/18/2024 COVID-19 Vaccine ( - 2023-2 5 season) 2025 Influenza Vaccine (#1) 2025 HIB Vaccines Aged Out No longer [...] on patient's age to complete this topic Insurance MEDICARE [facility] Care Teams Commercial Drafter Relationship Specialty Start Date End Date Rebecca Deal MD [address] [place] [address] PCP - General Internal Medicine 12/23/24
--- OUTSIDE RECORDS SUMMARY | 2025-07-01 08:25 | XMS_ITS | Patient Health Record ---
Author Organization [facility] Address [address] [place] [address] Care Team Providers Care Soccer Player Name Role Phone Rebecca Garcia Primary Care Provider Unavailab Juan Luis Coelho Unavailable [phone] Allergies No Known Allergies Results Component Value Reference Range Notes Pathology Reviewed date:12/31/2024 12:20:55 AM Interpretation: Performing Lab:[facility], [address] [place] [address] Notes/Report: Reason For Referral No Information Medications Medication [...] Active Azelaic Acid 15 % 1 application Cigarette Book Maker ally Twice a day Active Aspir-81 81mg Active Tamsulosin HCl 0.4 MG 1 capsule Orally O nce a day; Duration: 30 day(s) Active Cetirizine HCl 10 MG 1 tablet Orally Onc e a day; Duration: 30 day(s) Active Losartan Potassium 100 MG 1 tablet Orall y Once a day; Duration: 30 day(s) Active Fluticasone Propionate - 1 [...] Problem Status W/U Status Risk Notes Problem Screening for malignant neoplasm of colon (337968275) Encounter for screening for malignant neoplasm of colon (Z12.11) Active confirmed Problem History of adenomatous polyp of colon (715974173) History of adenomatous polyp of colon (Z86.010) Active confirmed Problem Preprocedural examination (660871625319584) Preprocedural examination (Z01.818) Active confirmed Problem Long-term current use of antiplatelet drug (956136296459788) Long-term use of aspirin therapy (Z79.82) Active confirmed Encounters Encounter Location Date Provider Diagnosis [facility] [place] [address] [place] [phone] 12/27/2024 Juan Luis Aguila Colon cancer scree [...] Date MEDICARE OF [place] [address] [place] [address] [id number] JUAN LUIS BROOKS Self - patient is the insured [facility] [address] [place], [place] [id number] JUAN LUIS BROOKS Self - patient is the insured Medical (General) History Medical History History ICD Code Colonoscopy in 2007, 2001,--all negative except for a small tubular adenoma removed in 1997--he does have some mild diverticulosis and small internal hemorrhoids Hyperlipidemia Asthma Arthritis Acne rosacea Denies [place],DM,CVA,renal disease HTN Colonoscopy 08/2013-small tubular adenom a removed Hypothyroidism Broken left femoral head Colonoscopy in 2019 with a small tubular adenoma removed Sees Dr. Quiñones-had an ETT 2023 with some changes and scheduled for a cardiac CT at [facility] 05/2024 Kidney stone Surgical History Surgery Date(Month/Year) tonsillectomy and adenoidectomy finger amputation-tip of the left index finger
== END 2025-07-01 08:45 | disposition home or self-care (01) ==
LOC: HO.HCS 08:17
PROVIDERS: PCP Internal Medicine; Visit Provider Internal Medicine Cardiovascular Disease
DX: I25.10 Atherosclerotic heart disease of native coronary artery without angina pectoris (principal); I45.2 Bifascicular block
CPT/HCPCS: 93010; 99214; G2211

== ENCOUNTER → 2025-07-01 08:16 | Outpatient (BNVA) | payer MEDICARE, BC, SELFPAY | PROVIDERS: PCP Internal Medicine; Visit Provider Internal Medicine Cardiovascular Disease | DX: I25.10 Atherosclerotic heart disease of native coronary artery without angina pectoris (principal); I45.2 Bifascicular block | CPT/HCPCS: 93005; 99212 ==

== ENCOUNTER 2025-07-05 07:23 | Outpatient (REF) | payer MEDICARE, BC, SELFPAY ==
--- OUTSIDE RECORDS SUMMARY | 2024-08-12 09:40 | XMS_ITS ---
Author Organization [facility] Address [address] [place] [id number] Care Team Providers Care Citrix Consultant Name Role Phone Rebecca Garcia Primary Care Provider Unavailab Juan Luis Coelho Unavailable [phone] REASON FOR VISIT screening, hx polyps Encounters Encounter Location Date Provider Diagnosis [facility] Outpatient [address] [place] [id number] 08/12/2024 Juan Luis Aguila Plan Of Treatment No Information Progress Notes * JUAN LUIS BROOKS EDOB: [birth year] (75 yo M)Acc No.[id number]:08/12/2024 COLON WITH MAC Patient: Kameron CASTILLO JUAN LUIS Salazar Provider: Jojo Aguila MD :1950 A ge:74 Y S ex:Male Date:08/12/2024 Address:[address] [place], [place] [id number] Pcp:Rebecca Deal Subjective: * Chief Complaints: * 1 . Screening, hx polyps. * Medical History: Objective: * Vitals: Assessment: Plan: * Treatment: * * The named appointment provid er may or may not be the originator of this progress note, and it is not deemed complete until electronically signed by the appointment provider. Sign off status: Pending * Provider: Jojo Aguila MD Date: 10/12/2023 Generated for Carolinai ng/Favirginiag/eTransmitting on: 07:25 AM EDT
--- OUTSIDE RECORDS SUMMARY | 2024-12-27 03:30 | XMS_ITS ---
Author Organization [facility] Address [address] [place] [address] Care Team Providers Care Family Practice Medical Doctor Name Role Phone Rebecca Garcia Primary Care Provider UnavailJuan Luis Reyes Unavailable [phone] REASON FOR VISIT screening Encounters Encounter Location Date Provider Diagnosis [facility] Out[facility] [address] [place], [place] [id number] 12/27/2024 Juan Luis Aguila Colon cancer scree vamshi Z12.11 ; Personal history of colonic polyps Z86.0100 ; Rectal polyp K62.1 and Diverticulosis of large intestine without perforation or abscess without bleeding K57.30 Assessments Encounter Date Diagnosis (ICD Code) Assessment Notes Treatment Notes Treatment Clinical Notes Section Notes 12/27/2024 Colon cancer screening (ICD-10 - Z12.11) 12/27/2024 Personal history of colonic polyps (ICD-10 - Z86.0100) 12/27/2024 Rectal polyp (ICD-10 - K62.1) 12/27/2024 Diverticulosis of large intestine without perforation or abscess without bleeding (ICD-10 - K57.30) Plan Of Treatment No Information Progress Notes * JUAN LUIS BROOKS EDOB: [birth year] (75 yo M)Acc No.[id number]:12/27/2024 COLON WITH MAC Patient: JUAN LUIS VILLEGAS Provider: Jojo Aguila MD :1950 A ge:74 Y S ex:Male Date:12/27/2024 Address:[address] [place], [place] [address] Pcp:Rebecca Deal Subjective: * Chief Complaints: * 1 . Screening. * Medical History: Objective: * Vitals: Assessment: * Assessment: 1. C olon cancer screening - Z12.11 (Primary) 2 . P ersonal history of colonic polyps - Z86.0100 3 . R ectal polyp - K62.1 4 . D iverticulosis of large intestine without perforation or abscess without bleeding - K57.30 Plan: * Treatment: * Procedure Codes: 4 5380 COLONOSCOPY AND BIOPSY, Modifiers: PT , 0529F INTRVL 3+YRS PTS CLNSCP DOCD, 0528F RCMND FLW-UP 10 YRS DOCD, Modifiers: 1P * * The named appointment provid er may or may not be the originator of this progress note, and it is not deemed complete until electronically signed by the appointment provider. Sign off status: Pending * Provider: Jojo Aguila MD Date: 0 12/27/2024 Generated for Isabelle mckinney/Ludivina/Katieitting on: 1 07:26 AM EDT
--- OUTSIDE RECORDS SUMMARY | 2025-07-05 07:26 | XMS_ITS | Encounter Summary ---
Author Organization Social Project [facility] Address [address] [place] [address] Care Team Providers Care Street Sweeper Name Role Phone Rebecca Deal MD Primary Care Provider [phone] Encounter Details Date Type Department Care Team (Late st Contact Info) Description 12/23/[address] [facility] - Main Lab [address] [facility] [place] [address] Caitlin Godoy NP [address] [facility] [address] [place] [address] Nodular prostate with lower urinary tract symptoms [...] 12/23/2024 1:30 PM EDT The Siemens Advia Lemur IMSaur Chemiluminescent Immunoassay is used. Results obtained with different assay methods or kits cannot be used interchangeably. Results cannot be interpreted as absolute evidence of the presence or absence of malignant disease. us Caitlin Godoy PHYSICIAN EXECUTIVE LAB BLOOD ORDERABLES Tali laureano Result [facility] [address] [place] [address], documented in this encounter Visit Diagnoses Diagnosis Nodular prostate with lower urinary tract symptoms documented in this encounter Care Teams Street Sweeper Relationship Specialty Start Date End Date Rebecca Deal MD [address] [place] [address] PCP - General Internal Medicine 12/23/24 documented as of this encounter
--- OUTSIDE RECORDS SUMMARY | 2025-07-05 07:26 | XMS_ITS | Patient Health Record ---
Author Organization [facility] Address [address] [place] [address] Care Team Providers Care Security Operations Specialist Name Role Phone Rebecca Garcia Primary Care Provider Unavailab Juan Luis Coelho Unavailable [phone] Allergies No Known Allergies Results Component Value Reference Range Notes Pathology Reviewed date:12/31/2024 12:20:55 AM Interpretation: Performing Lab:[facility], [address] [place] [phone] Notes/Report: Reason For Referral No Information Medications [...] Active Azelaic Acid 15 % 1 application Licensed Reactor Operator ally Twice a day Active Aspir-81 [...] Problem Screening for malignant neoplasm of colon (542794902) Encounter for screening for malignant neoplasm of colon (Z12.11) Active confirmed Problem History of adenomatous polyp of colon (138966330) History of adenomatous polyp of colon (Z86.010) Active confirmed Problem Preprocedural examination (776141332139399) Preprocedural examination (Z01.818) Active confirmed Problem Long-term current use of antiplatelet drug (016226530394364) Long-term use of aspirin therapy (Z79.82) Active confirmed Encounters Encounter Location Date Provider Diagnosis [facility] Outpatient [address] [place] [phone] 12/27/2024 Juan Luis Aguila Colon cancer scree [...] Date MEDICARE OF [place] [address] [place] [address] [id number] JUAN LUIS BROOKS Self - patient is the insured [facility] [address] [place], [place] [id number] JUAN LUIS BROOKS Self - patient is [...] and scheduled for a cardiac CT at [facility] 05/2024 Kidney stone Surgical History Surgery Date(Month/Year) tonsillectomy and adenoidectomy finger amputation-tip of the left index finger
--- OUTSIDE RECORDS SUMMARY | 2025-07-05 07:26 | XMS_ITS | Clinical Summary ---
Author Organization LL [address] [facility] Address [address] [place] [address] Phone Care Team Providers Care Account Collector Name Role Phone Rebecca Deal MD Primary Care Provider [phone] Social History Tobacco Use Types Packs/Day Years [...] age to complete this topic Insurance MEDICARE [facility] Care Teams Account Collector Relationship Specialty Start Date End Date Rebecca Deal MD [address] [place] [address] PCP - General Internal Medicine 12/23/24
[2025-07-05 10:37] LABS: PSA,Total (Free>4and<10) 0.70 ng/mL (0.00-4.00)
[2025-07-05 10:59] LABS: Alanine Aminotransferase 32 U/L (0-40); Albumin Level 4.7 g/dL (3.5-5.0); Alkaline Phosphatase 58 U/L (39-117); Anion Gap 13 (12-20); Aspartate Amino Transferase 30 U/L (5-37); Blood Urea Nitrogen 16 mg/dL (9-16); Calcium 10.5 mg/dL (8.4-10.2); Carbon Dioxide 25 mmol/L (22-29); Chloride 106 mmol/L (96-108); Cholesterol 183 mg/dL (<200); Estimated Glomerular Filt Rate > 60; HDL Cholesterol 34 mg/dL (>40); Potassium 4.3 mmol/L (3.3-5.1); Sodium 140 mmol/L (135-145); Total Protein 7.2 g/dL (6.5-8.0); Triglycerides 203 mg/dL (<150)
[2025-07-05 11:04] LABS: Thyroid Stimulating Hormone 3.33 uIU/mL (0.32-4.0)
== END 2025-07-05 07:24 | disposition home or self-care (01) ==
LOC: HO.LAB 07:23
PROVIDERS: PCP Internal Medicine; Visit Provider Internal Medicine
DX: N40.1 Benign prostatic hyperplasia with lower urinary tract symptoms (principal); R73.02 Impaired glucose tolerance (oral); E83.39 Other disorders of phosphorus metabolism; R35.1 Nocturia; E03.9 Hypothyroidism, unspecified; E78.5 Hyperlipidemia, unspecified; Z12.5 Encounter for screening for malignant neoplasm of prostate
CPT/HCPCS: 36415; 80053; 80061; 84100; 84153; 84443

== ENCOUNTER 2025-07-09 08:02 | Outpatient (AMB) | payer MEDICARE, BC, SELFPAY ==
--- OUTSIDE RECORDS SUMMARY | 2024-08-12 09:40 | XMS_ITS ---
Author Organization [facility] Address [address] [place] [phone] Care Team Providers Care Welder Gas Automatic Name Role Phone Rebecca Garcia Primary Care Provider Unavailab Juan Luis Coelho Unavailable [phone] REASON FOR VISIT screening, hx polyps Encounters Encounter Location Date Provider Diagnosis [facility] Outpatient [address] [place] [id number] 08/12/2024 Juan Luis Aguila Plan Of Treatment No Information Progress Notes * JUAN LUIS BROOKS EDOB: [birth year] (75 yo M)Acc No.[id number]:08/12/2024 COLON WITH MAC Patient: Kameron CASTILLO JUAN LUIS Marie Provider: Jojo Aguila MD :1950 A ge:74 Y S ex:Male Date:08/12/2024 Address:[address] [place], [place] [phone] Pcp:Rebecca Deal Subjective: * Chief Complaints: * [...] Date: 10/12/2023 Generated for Carolinai ng/Favirginiag/eTransmitting on: 08:06 AM EDT
--- OUTSIDE RECORDS SUMMARY | 2024-12-27 03:30 | XMS_ITS ---
Author Organization [facility] Address [address] [place] [address] Care Team Providers Care Ordnance Keeper Name Role Phone Rebecca Garcia Primary Care Provider UnavailJuan Luis Reyes Unavailable [phone] REASON FOR VISIT screening Encounters Encounter Location Date Provider Diagnosis [facility] Out[facility] [address] [place], [place] [phone] 12/27/2024 Juan Luis Aguila Colon cancer scree [...] LUIS BROOKS EDOB: [birth year] (75 yo M)Acc No.[id number]:12/27/2024 COLON WITH MAC Patient: JUAN LUIS VILLEGAS Provider: Jojo Aguila MD :1950 A ge:74 Y S ex:Male Date:12/27/2024 Address:[address] [place], [place] [address] Pcp:Rebecca Deal Subjective: * Chief Complaints: * [...] 12/27/2024 Generated for Isabelle mckinney/Ludivina/Katieitting on: 1 08:07 AM EDT
--- OUTSIDE RECORDS SUMMARY | 2025-07-09 08:06 | XMS_ITS | Patient Health Record ---
Author Organization [facility] Address [address] [place] [address] Care Team Providers Care Shipping Clerk Crating Name Role Phone Rebecca Garcia Primary Care Provider Unavailab Juan Luis Coelho Unavailable [phone] Allergies No Known Allergies Results Component Value Reference Range Notes Pathology Reviewed date:12/31/2024 12:20:55 AM Interpretation: Performing Lab:[facility], [address] [place] [phone] Notes/Report: Reason For Referral No Information Medications [...] Active Azelaic Acid 15 % 1 application Employment Trainer ally Twice a day Active Aspir-81 81mg [...] Problem Screening for malignant neoplasm of colon (222718183) Encounter for screening for malignant neoplasm of colon (Z12.11) Active confirmed Problem History of adenomatous polyp of colon (889194625) History of adenomatous polyp of colon (Z86.010) Active confirmed Problem Preprocedural examination (198360680639849) Preprocedural examination (Z01.818) Active confirmed Problem Long-term current use of antiplatelet drug (495638101297952) Long-term use of aspirin therapy (Z79.82) Active confirmed Encounters Encounter Location Date Provider Diagnosis [facility] Outpatient [address] [place] [phone] 12/27/2024 Juan Luis Aguila Colon cancer scree [...] Date MEDICARE OF [place] [address] [place] [address] [id number] JUAN LUIS BROOKS Self - patient is the insured [facility] [address] [place], [place] [phone] [id number] JUAN LUIS BROOKS Self - patient is the insured Medical (General) History Medical History History ICD Code Colonoscopy in 2007, 2001,--all negative except for a small tubular adenoma removed in 1997--he does have some mild diverticulosis and small internal hemorrhoids Hyperlipidemia Asthma Arthritis Acne rosacea Denies [place],DM,CVA,renal disease HTN Colonoscopy 08/2013-small tubular adenom a removed Hypothyroidism Broken left femoral head Colonoscopy in 2019 with a small tubular adenoma removed Sees Dr. Quiñones-had an ETT 2023 with some changes and scheduled for a cardiac CT at [facility] 05/2024 Kidney stone Surgical History Surgery Date(Month/Year) tonsillectomy and adenoidectomy finger amputation-tip of the left index finger
--- OUTSIDE RECORDS SUMMARY | 2025-07-09 08:06 | XMS_ITS | Encounter Summary ---
Author Organization [facility] [place] [facility] Address [address] [place] [address] Care Team Providers Care Visual Merchandiser Name Role Phone Rebecca Deal MD Primary Care Provider [phone] Encounter Details Date Type Department Care Team (Late st Contact Info) Description 12/23/[address] [facility] - Main Lab [address] [facility] [place] [address] Caitlin Godoy NP [address] [facility] [address] [place] [address] Nodular prostate with lower urinary tract symptoms [...] 12/23/2024 1:30 PM EDT The Siemens Advia RFIDeasaur Chemiluminescent Immunoassay is used. Results obtained with different assay methods or kits cannot be used interchangeably. Results cannot be interpreted as absolute evidence of the presence or absence of malignant disease. us Caitlin Godoy HYPERCIL CORE TRANSFORMER ASSEMBLER LAB BLOOD ORDERABLES Tali laureano Result [facility] [address] [place] [address], documented in this encounter Visit Diagnoses Diagnosis Nodular prostate with lower urinary tract symptoms documented in this encounter Care Teams Visual Merchandiser Relationship Specialty Start Date End Date Rebecca Deal MD [address] [place] [address] PCP - General Internal Medicine 12/23/24 documented as of this encounter
--- OUTSIDE RECORDS SUMMARY | 2025-07-09 08:07 | XMS_ITS | Clinical Summary ---
Author Organization LL [address] [facility] Address [address] [place] [address] Phone Care Team Providers Care Employment Case Manager Name Role Phone Rebecca Deal MD Primary Care Provider [phone] Social History Tobacco Use Types Packs/Day Years [...] age to complete this topic Insurance MEDICARE [facility] Care Teams Employment Case Manager Relationship Specialty Start Date End Date Rebecca Deal MD [address] [place] [address] PCP - General Internal Medicine 12/23/24
--- NOTE | 2025-07-09 08:17 | A.OFFPC_ITS ---
Vital Signs 07/09/25 08:18 Height 5 ft 11 in Weight 210 lb 2 oz BMI 29.3 BP 110/58 L Blood Pressure Location Lt brachial Position Sitting Pulse 66 Pulse Source Pulse Oximeter Temp 96.9 F Temp Source Temporal Artery Scan Pulse Oximetry (%) 99 Oxygen Delivery Method Room Air Intake Visit Reasons: hypercalcemia Intake Note: Patient is here to follow up on Hypercalcemia. Block Trader Required: No Bus Trolley And Taxi Instructor: Not Required per policy Accompanied by: Self / Same As Patient Allergies mollusks Adverse Reaction (Intermediate, Verified 07/09/25 08:26) vomitting Medication List - Last Reconciled 07/09/25 by Rebecca Deal MD albuterol sulfate 90 mcg/actuation 2 inhalations inhalation Q4-6H PRN aspirin (Ecotrin Low Strength) 81 mg PO DAILY azelaic acid 15% 1 appl topical BID cetirizine (All Day Allergy (cetirizine)) 10 mg PO BID PRN 90 days fluticasone propionate 50 mcg/actuation 1 spray intranasal DAILY 30 days ibuprofen 800 mg PO Q8H PRN 90 days levothyroxine 88 mcg PO DAILY 90 days losartan 100 mg PO DAILY 90 days rosuvastatin 40 mg PO DAILY tamsulosin 0.4 mg PO DAILY Tobacco use date assessed: 07/09/25 Fall risk assessment: No Falls in past year Last assessed Fall Risk: 07/09/25 Dental Screening Dental Screen Date: 07/09/25 Did you have a dental visit in the last 12 months?: Yes Did you have a dental problem in the last 6 months where you did not have access to dental care?: No Was dental information given to patient?: Patient has dentist HPI HPI Comments History of Present Illness Details The patient is a 75-year-old male presenting with elevated fasting blood glucose levels for evaluation of newly diagnosed diabetes mellitus. The fasting blood glucose was recorded at 152 mg/dL, with a previous reading of 129 mg/dL, both exceeding the normal threshold of 126 mg/dL. An A1c test was ordered to confirm the diagnosis, which returned a result of 7.2%, confirming diabetes mellitus. Hypertension well controlled with losartan and blood pressure within goal being less than 130/80. The patient denies experiencing classic symptoms of diabetes such as polyuria, polydipsia, and unintentional weight loss. He reports increased water intake due to a history of nephrolithiasis, but not due to thirst. The patient has a history of hypertriglyceridemia, with triglyceride levels recorded at 203 mg/dL and LDL cholesterol at 109 mg/dL. He is currently on rosuvastatin 40 mg daily, which was recently increased from 20 mg as per the recommendation of his healthcare provider. The patient has a history of hypercalcemia, which has been evaluated by Dr. Ferrer, who advised that it was not a significant concern. Additionally, there is a noted mild hypophosphatemia, but it does not require treatment. He has nephrolithiasis and I add vitamin B6 for prophylaxis. Also has hypothyroidism and TSH was normal. The patient has allergic rhinitis, managed with azelaic acid, cetirizine as needed, and nasal spray. Preventative care measures include a recommendation for the PCV20 pneumonia vaccine, as the patient has had pneumonia in the past and has received previous pneumonia vaccinations. [facility] Medical History (Updated 07/09/25 @ 08:55 by Rebecca Deal MD) Broken leg HTN (hypertension) Acne rosacea Arthritis Asthma Hyperlipidemia CAD (coronary artery disease) Abnormal stress test Right bundle branch block Hypercalcemia Hematospermia Polyarthralgia Meniere disease Impaired glucose tolerance Erectile dysfunction Renal calculi Hypothyroidism BPH (benign prostatic hyperplasia) Pure hypercholesterolemia Essential hypertension Surgical History History of blepharoplasty History of colonoscopy History of surgery Amputation of left index finger Family History Father Prostate cancer Mother Stroke Social History Housing: House Are you a primary school child care attendant to a significant other at home: No Do you presently have visiting nurse or other home services: No Alcohol intake: current Alcohol intake frequency: a few times a week Alcohol type: wine Patient Tobacco Use Status: Former Tobacco user Tobacco use type: Cigarette e-Cigarette/Vaping Use: Never Used Second Hand Smoke Exposure: Yes service: Yes Current occupational status: retired and disabled Cognitive needs: No Hearing needs: Yes (hearing aide) Vision needs: Yes (Glasses) Questionnaire PHQ-9 Over the last 2 weeks, how often have you been bothered by any of the following problems? 1. Little interest or pleasure in doing things: not at all 2. Feeling down, depressed, or hopeless: not at all 3. Trouble falling or staying asleep, or sleeping too much: not at all 4. Feeling tired or having little energy: not at all 5. Poor appetite or overeating: not at all 6. Feeling bad about yourself - or that you are a failure or have let yourself or your family down: not at all 7. Trouble concentrating on things, such as reading the newspaper or watching television: not at all 8. Moving or speaking so slowly that other people could have noticed. Or the opposite - being so fidgety or restless that you have been moving around a lot more than usual: not at all 9. Thoughts that you would be better off or of hurting yourself in some way: not at all Total score: 0 Depression Screening Interpretation: Negative Depression Screening Done: Yes 14638 - PHQ-9 Billing: Yes Source: Developed by Drs. Chris Us, Samantha Vaughan, Charanjit Garrido and colleagues, with an educational lili from [employer]. Thrive Questionnaire Date Thrive assessed: 07/03/25 I am a: Patient What is your living situation today?: I have a steady place to live Within the past 12 months, did the food you bought not last and you didn't have the money to get more?: Never true Within the past 12 months, did you worry whether your food would run out before you got money to buy more?: Never true Do you have trouble paying for medicines?: No Do you have trouble getting transportation to medical appointments?: No Do you have trouble paying your heating and electricity bill?: No Do you have trouble taking care of your child, family member or friend?: No Do you have trouble with day-to-day activities such as bathing, preparing meals, shopping, managing finances, etc.?: No Are you currently unemployed and looking for a job?: No Are you interested in more education?: Yes Please select the resources that you would like help with: None Currently or been in a relationship where the following occur: No concerns reported THRIVE Score: 0 AUDIT C Alcohol Use Questionnaire (AUDIT-C) 1. How often do you have a drink containing alcohol?: 4 or more times a week Total Score: 4 ANNA-7 AMB Questionnaire ANNA-7 Date ANNA - 7 assessed: 05/13/24 Feeling nervous, anxious, or on edge: 0 = Not at all Not being able to stop or control worryin = Not at all Worrying too much about different things: 0 = Not at all Trouble relaxin = Not at all Being so restless that it is hard to sit still: 0 = Not at all Becoming easily annoyed or irritable: 0 = Not at all Feeling afraid as if something awful might happen: 0 = Not at all Total ANNA-7 score (0-4 normal; 5-9 mild; 10-14 moderate; 15-21 severe): 0 Source: Developed by Drs. Chris Us, Samantha Vaughan, Charanjit Garrido and colleagues, with an educational lili from [employer]. ANNA-7 Assessment Billing ANNA-7 Assessment Tool: ANNA-7 Assessment 29164 Review of Systems Const All systems reviewed & are unremarkable except as noted in HPI and below Card Denies chest pain at rest, Denies chest pain with activity, Denies edema, Denies irregular heart rhythm, Denies claudication, Denies dyspnea, Denies dyspnea on exertion, Denies orthopnea, Denies paroxysmal nocturnal dyspnea and Denies slow heart rate Resp Denies cough, Denies dyspnea and Denies dyspnea on exertion GI Denies abdominal pain, Denies change in bowel habits, Denies excessive flatus, Denies nausea and Denies vomiting Physical exam (Primary Care) Vital Signs: Last Vital Signs Temp 96.9 F 07/09/25 08:18 Pulse 66 07/09/25 08:18 BP 110/58 L 07/09/25 08:18 Pulse Ox 99 07/09/25 08:18 Oxygen Delivery Method Room Air 07/09/25 08:18 BMI result Body Mass Index 29.3 Tobacco/Smoking Status: Tobacco use Status Tobacco use date assessed 07/09/25 07/09/25 08:22 Patient Tobacco Use Status Former Tobacco user 07/09/25 08:22 Tobacco use type Cigarette 07/09/25 08:22 e-Cigarette/Vaping Use Never Used 07/09/25 08:22 PHQ-9: PHQ-9 Score PHQ-9: Total score 0 07/09/25 08:39 Depression Screening Interpretation: Negative Thrive Assessment: Date of Thrive Assessment Date Thrive assessed 07/03/25 07/09/25 08:22 Currently or been in a relationship where the following occur: No concerns reported Resp Effort & Inspection: normal respiratory effort Auscultation: clear to auscultation bilaterally Cardio Jugular venous distension: no JVD Rate: regular rate Rhythm: regular rhythm Heart sounds: S1 normal heart sound present and S2 normal heart sound present Extrem General: Yes full ROM Results AMB Hemoglobin A1c AMB Hemoglobin A1c 7.2 % Last Edit by DHARMESH Hubbard on 07/09/25 08:39 Immunizations pneumoc 20-ninfa conj-dip cr(PF) 0.5 mL IM syringe Performing Provider: Rebecca Deal MD [facility] Administered by: Niecy Odom CMA on 07/09/25 08:42 Dose Route Admin Location Dispensed Lot Number Expiration Date NDC Powertrain Design Engineer 0.5 mL IM Left Deltoid 0.5 mL [id number] 06/18/26 [facility] Total Dispensed Waste 0.5 mL 0 % VIS Given Date VIS Provided VIS Publication Date 07/09/25 Single Vaccine 25 Eligibility Eligibility Date Funding Source Not [facility] Eligible 07/09/25 Private Results Reviewed Results Reviewed: Laboratory Last Values Hgb A1c (Clinic) 7.2 % (4.0-6.0) H 07/09/25 08:39 Coding Level of Care Code Est Pt Level 4 (66419) Complex EM visit Add On G2211 Diagnoses Diabetes mellitus without complication, with long-term current use of insulin E11.9; Z79.4 Essential hypertension I10 Mixed hyperlipidemia E78.2 Hypercalcemia E83.52 Hypophosphatemia E83.39 Acquired hypothyroidism E03.9 Hypothyroidism type: acquired Additional Codes PHQ-9 - 14225 - PHQ-9 Billing: Yes ([id number]) ANNA-7 Assessment Billing - ANNA-7 Assessment Tool: ANNA-7 Assessment 34034 ([id number]) Time Spent (min) 24 Assessment & Plan Assessment & Plan (1) Diabetes mellitus without complication, with long-term current use of insulin: Code(s): E11.9 - Type 2 diabetes mellitus without complications; Z79.4 - care home (current) use of insulin Category: Medical (2) Essential hypertension: Code(s): I10 - Essential (primary) hypertension Category: Medical (3) Mixed hyperlipidemia: Code(s): E78.2 - Mixed hyperlipidemia Category: Medical (4) Hypercalcemia: Code(s): E83.52 - Hypercalcemia Category: Medical (5) Hypophosphatemia: Code(s): E83.39 - Other disorders of phosphorus metabolism Category: Medical (6) Hypothyroidism: Code(s): E03.9 - Hypothyroidism, unspecified Category: Medical Qualifiers: Hypothyroidism type: acquired Qualified Code(s): E03.9 - Hypothyroidism, unspecified Plan Plan 1. Type 2 diabetes mellitus without complications E11.9 HCC 19 The patient has been newly diagnosed with diabetes mellitus, confirmed by an A1c of 7.2%. The plan is to initiate metformin twice daily and monitor fasting blood glucose levels. The patient was advised to report any gastrointestinal side effects such as diarrhea. 2. Mixed hyperlipidemia E78.2 The patient has hypertriglyceridemia with triglyceride levels at 203 mg/dL. He is currently on rosuvastatin 40 mg daily, which was increased from 20 mg recently. 3. Calculus of kidney N20.0 The patient has a history of nephrolithiasis and is advised to continue increased water intake. Vitamin B6 supplementation was recommended to prevent kidney stones. 4. Essential (primary) hypertension I10 Continue Losartan. BP goal is equal or less than 130/80. 5. Hypothyroidism, unspecified E03.9 Continue levothyroxine. Orders: Orders AMB Hemoglobin A1c Today R73.02 - Impaired glucose tolerance (oral), Z13.9 - Encounter for screening, unspecified Pneumococcal 20 Immunization Today Z23 - Encounter for immunization Thyroid Stimulating Hormone 6 Months E03.9 - Hypothyroidism, unspecified Lipid Panel 6 Months E11.9 - Type 2 diabetes mellitus without complications, E78.5 - Hyperlipidemia, unspecified, Z79.4 - care home (current) use of insulin Microalbumin, Random (w Creat) 6 Months E11.9 - Type 2 diabetes mellitus without complications, R80.9 - Proteinuria, unspecified, Z79.4 - terminal press operator (current) use of insulin Comprehensive [place]. Panel Fast 6 Months E11.9 - Type 2 diabetes mellitus without complications, Z79.4 - terminal press operator (current) use of insulin Phosphorus 6 Months E83.39 - Other disorders of phosphorus metabolism Medications: New metformin 500 mg PO BID 180 tabs 1RF 90 days E11.9 - Type 2 diabetes mellitus without complications, Z79.4 - terminal press operator (current) use of insulin blood sugar diagnostic (FreeStyle Lite Strips) Use 1 strip once a day 50 ea 6RF E11.9 - Type 2 diabetes mellitus without complications, Z79.4 - terminal press operator (current) use of insulin lancets (FreeStyle Lancets) Use 1 lancet once a day 100 ea 3RF E11.9 - Type 2 diabetes mellitus without complications, Z79.4 - care home (current) use of insulin pyridoxine (vitamin B6) 50 mg PO DAILY 90 tabs 1RF 90 days blood-glucose meter (FreeStyle Lite Meter kit) As directed 1 ea 0RF E11.9 - Type 2 diabetes mellitus without complications, Z79.4 - terminal press operator (current) use of insulin
[2025-07-09 08:18] VITALS: BP 110/58; PULSE 66; TEMP 36.1; O2SAT 99; BMI 29.3
== END 2025-07-09 08:47 | disposition home or self-care (01) ==
LOC: HO.HMCH 08:03
PROVIDERS: PCP Internal Medicine; Visit Provider Internal Medicine
DX: E11.9 Type 2 diabetes mellitus without complications (principal); Z79.4 Long term (current) use of insulin; I10 Essential (primary) hypertension; E78.2 Mixed hyperlipidemia; E83.52 Hypercalcemia; E83.39 Other disorders of phosphorus metabolism; E03.9 Hypothyroidism, unspecified; Z13.9 Encounter for screening, unspecified; R73.02 Impaired glucose tolerance (oral); Z23 Encounter for immunization

== ENCOUNTER → 2025-07-09 08:02 | Outpatient (BNVA) | payer MEDICARE, BC, SELFPAY | PROVIDERS: PCP Internal Medicine; Visit Provider Internal Medicine | DX: E11.9 Type 2 diabetes mellitus without complications (principal); I10 Essential (primary) hypertension; E78.1 Pure hyperglyceridemia; E83.52 Hypercalcemia; J30.9 Allergic rhinitis, unspecified; E78.2 Mixed hyperlipidemia; E83.39 Other disorders of phosphorus metabolism; E03.9 Hypothyroidism, unspecified; N20.0 Calculus of kidney; Z23 Encounter for immunization; Z79.4 Long term (current) use of insulin | CPT/HCPCS: 83036; 90471; 90677; 96127; 99212 ==